=== PATIENT | female | born 1990 | race Hispanic/Latino ===

== ENCOUNTER 2020-11-09 15:12 | Emergency (ER) | payer SELFPAY ==
--- OUTSIDE RECORDS SUMMARY | 2020-11-09 15:14 | XMS REPORT | Continuity of Care Document ---
:1990 Author Organization [facility] t Address [address] [place] [address] Care Team Providers Name Role Phone Singer BANUELOS Attending Clinician Doctor Unassigned, Name Attending Clinician Unavailable Khalida TREVIÑO Attending Clinician Problems This patient has no known problems. Allergies, Adverse Reactions, Alerts This patient has no known allergies or adverse reactions. Medications This patient has no known medications. Procedures This patient has no known procedures. Encounters Start End Encounter Admission Attending Care Care Encounter Source Date/Time Date/Time Type Type Clinicians Facility Department ID 2020-07-21 2020-07-21 TIM Humphrey [id number] 11:52:00 14:37:00 Davin Albarado [id number] [place] [id number] [place] [id number] 2020-07-21 2020-07-21 Orders Doctor LEDEZMA [id number] 00:00:00 00:00:00 Only Unassigned, DANIEL [id number] [place] [facility] [id number] [id number] 2019-05-11 2019-05-11 Telephone TIM Gaxiola [id number] 00:00:00 00:00:00 Kalina Albarado [id number] [place] [id number] [place] [id number] [address] 2019-04-23 2019-04-23 Orders Doctor BRISA [id number] 00:00:00 00:00:00 Only Unassigned, DANIEL [id number] [place] [facility] [id number] [id number] Results This patient has no known results.
--- NOTE | 2020-11-09 17:08 | RAD REPORT ---
EXAM DESCRIPTION: US - Transvaginal OB - 11/09/2020 4:51 pm CLINICAL HISTORY: Abd cramping, ;Vaginal bleeding COMPARISON: No comparisons FINDINGS: No IUP identified. The uterus measures 7.5 centimeters in long axis. The endometrial echo complex measures 4 millimeters. The right ovary is volume of 2.8 cc. The left ovary is volume of 3.4 cc. Both ovaries demonstrate vascular flow. Trace free fluid. IMPRESSION: No IUP identified, therefore cannot exclude early ectopic, failed first trimester pregna ncy, or early normal . Could consider short-term follow-up. Vascular flow is present in the ovaries bilaterally.
[2020-11-09 17:28] LABS: Urine Blood Trace-intact (Negative); Urine Glucose Negative (Negative); Urine Protein Negative (Negative); Urine pH 6.5 (5.0-7.0)
[2020-11-09] MEDS ORDERED: NA CHLORIDE 0.9% 1,000 ML ONE (18:38)
[2020-11-09 18:39] LABS: Absolute Lymphocytes (CBC) 1.5 K/uL (0.7-4.9); Basophils % 0.3 % (0-1.3); Hematocrit 42.3 % (36.0-45.0); Lymphocytes % 11.2 % (15.3-44.8); MPV 8.2 fL (7.6-11.3)
[2020-11-09 18:50] LABS: BUN Blood Urea Nitrogen 12 mg/dL (7-18); Bicarbonate 27 mmol/L (21-32); Glucose Level 79 mg/dL (74-106); HCG, Quantitative 631 mIU/mL (1-3); Potassium 3.3 mmol/L (3.5-5.1); Sodium Level 138 mmol/L (136-145)
[2020-11-09] MEDS ORDERED: POTASSIUM 25 MEQ EFFERV TAB ONE (20:06)
--- NOTE | 2020-11-11 16:50 | ER ---
Nurse's Notes [facility] Name: Italia Watts Age: 30 yrs Sex: Female : 1990 Arrival Date: 11/09/2020 Time: 15:13 Bed 26 Private MD: Diagnosis: Threatened Presentation: 11/09 15:18 Chief complaint: Patient states: "I'm . I don't know how far along, but I ss started spotting last night and now I'm cramping.". Coronavirus screen: Client denies travel out of the [place] in the last 14 days. Ebola Screen: Patient denies exposure to infectious person. Patient denies travel to an Ebola-affected area in the 21 days before illness onset. Initial Sepsis Screen: Does the patient meet any 2 criteria? No. Patient's initial sepsis screen is negative. Does the patient have a suspected source of infection? No. Patient's initial sepsis screen is negative. Risk Assessment: Do you want to hurt yourself or someone else? Patient reports no desire to harm self or others. Onset of symptoms was November 08, 2020. 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 - Social history:: Smoking status: Patient denies any tobacco usage or history of. Screenin:14 Abuse screen: Denies threats or abuse. Denies injuries from another. Nutritional zb screening: No deficits noted. Tuberculosis screening: No symptoms or risk factors identified. Fall Risk None identified. Assessment: 18:13 General: Appears uncomfortable, Behavior is calm, cooperative, appropriate for age. zb Pain: Complains of pain in left lower quadrant and right lower quadrant Quality of pain is described as crampy. Neuro: Level of Consciousness is awake, alert, obeys commands, Oriented to person, place, time, situation. Cardiovascular: Patient's skin is warm and dry. Respiratory: Airway is patent Respiratory effort is even, unlabored, Respiratory pattern is regular, symmetrical. GI: Abdomen is flat, round. : Urine is clear. : Reports discharge, bloody, spotting x1 day. Derm: Skin is intact, is healthy with good turgor. Musculoskeletal: Range of motion: intact in all extremities. 19:30 Obstetrical Assessment: General assessment: awake and alert. zb 19:36 Reassessment: Patient appears in no apparent distress at this time. Patient and/or zb family updated on plan of care and expected duration. Pain level reassessed. Patient is alert, oriented x 3, equal unlabored respirations, skin warm/dry/pink. Vital Signs: 15:18 BP 150 / 99; Pulse 80; Resp 15; Temp 97.8(TE); Pulse Ox 98% on R/A; Height 5 ft. 2 in. ss (157.48 cm); Pain 6/10; 18:15 BP 123 / 106; Pulse 97; Resp 16; Pulse Ox 100% on R/A; zb Vitals: 20:24 Heart Tones n/a at this time. ECP notified no doppler. . zb ED Course: 15:13 Patient arrived in ED. am2 15:19 Triage completed. ss 15:19 Arm band placed on right wrist. ss 15:37 Fabiola Medina FNP-C is PHCP. kb 15:37 Karen Frederick MD is Attending Physician. kb 16:31 Fabiola Medina FNP-C is PHCP. kb 16:31 Karen Frederick MD is Attending Physician. kb 16:51 US Transvaginal Ob In Process Unspecified. EDMS 17:30 Michele Mccabe PA is PHCP. kb 17:58 Kristi Tan RN is Primary Nurse. zb 18:14 Patient has correct armband on for positive identification. Pulse ox on. NIBP on. Door zb closed. Noise minimized. 18:14 Inserted saline lock: 20 gauge in right antecubital area, using aseptic technique. zb Blood collected. 20:00 No provider procedures requiring assistance completed. IV discontinued, intact, zb bleeding controlled, No redness/swelling at site. Pressure dressing applied. 20:00 No provider procedures requiring assistance completed. zb 20:00 No provider procedures requiring assistance completed. zb Administered Medications: 18:20 Drug: NS 0.9% 1000 ml Route: IV; Rate: 1000 ml; Site: right antecubital; zb 19:36 Follow up: Response: No adverse reaction; IV Status: Completed infusion; IV Intake: zb 1000ml 19:57 Drug: Potassium Effervescent Tablet 50 mEq Route: PO; zb 20:00 Follow up: Response: Medication administered at discharge. zb Point of Care Testing: Urine : 18:15 hCG Reading: Positive; Control Reading: Positive; zb Intake: 19:36 IV: 1000ml; Total: 1000ml. zb Outcome: 19:18 Discharge ordered by . cp 20:00 Discharged to home ambulatory, with family. zb 20:00 Condition: stable 20:00 Discharge instructions given to patient, Instructed on discharge instructions, follow up and referral plans. Demonstrated understanding of instructions, follow-up care. 20:04 Patient left the ED. zb Signatures: Dispatcher [employer] EDGA Fabiola Medina, KALLIE-C PATIENT RELATIONS LIAISON-Yolanda Coburn RN RN ss Michele Mccabe, PA PA Kenzie Leyva Zipporah, RN RN zb Corrections: (The following items were deleted from the chart) 15:20 15:19 PSHx: Colectomy; ss
--- NOTE | 2020-11-11 16:50 | EDPHYS ---
Physician Documentation [facility] Name: Italia Watts Age: 30 yrs Sex: Female : 1990 Arrival Date: 11/09/2020 Time: 15:13 Bed 26 Private MD: ED Physician Karen Frederick HPI: 11/09 17:23 This 30 yrs old Female presents to ER via Ambulatory with complaints of kb Vaginal Bleeding, + Preg <12wks, Abdominal Cramping. 17:23 The patient presents to the emergency department with abdominal pain, of the right kb lower quadrant and left lower quadrant, that started today, described as crampy, vaginal bleeding, described as spotting. course: care: none. Previous pregnancies: in previous pregnancies patient has had . Associated signs and symptoms: Pertinent positives: abdominal pain, vaginal bleeding, Pertinent negatives: chest pain, diarrhea, dysuria, fever, frequency, nausea, ruptured membranes, seizure, shortness of breath, vaginal discharge, vomiting. The patient has not experienced similar symptoms in the past. The patient has not recently seen a physician. Patient reports she is . Reports spotting yesterday and lower abdominal cramping today. Spotting has resolved today. 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 - Social history:: Smoking status: Patient denies any tobacco usage or history of. ROS: 17:22 Constitutional: Negative for fever, chills, and weight loss. kb 17:22 Abdomen/GI: Positive for abdominal cramps, Negative for abdominal pain, nausea, vomiting, and diarrhea. 17:22 : Positive for vaginal bleeding. 17:22 All other systems are negative. Exam: 17:22 Constitutional: This is a well developed, well nourished patient who is awake, alert, kb and in no acute distress. Head/Face: Normocephalic, atraumatic. ENT: Moist Mucous membranes Respiratory: Respirations even and unlabored. No increased work of breathing, no retractions or nasal flaring. Abdomen/GI: Soft, non-tender. No distention Skin: Warm, dry with normal turgor. Normal color. MS/ Extremity: Pulses equal, no cyanosis. Neurovascular intact. Full, normal range of motion. Neuro: Awake and alert, GCS 15, oriented to person, place, time, and situation. Moves all extremities. Normal gait. Psych: Awake, alert, with orientation to person, place and time. Behavior, mood, and affect are within normal limits. Vital Signs: 15:18 BP 150 / 99; Pulse 80; Resp 15; Temp 97.8(TE); Pulse Ox 98% on R/A; Height 5 ft. 2 in. ss (157.48 cm); Pain 6/10; 18:15 BP 123 / 106; Pulse 97; Resp 16; Pulse Ox 100% on R/A; zb MDM: 16:32 Patient medically screened. kb 17:22 Data reviewed: vital signs, nurses notes. Data interpreted: Pulse oximetry: on room air kb is 98 %. Interpretation: normal. 17:29 Transition of care: After a detail discussion of the patient's case, care is kb transferred to Michele JARRETT. 19:15 Counseling: I had a detailed discussion with the patient and/or guardian regarding: the cp historical points, exam findings, and any diagnostic results supporting the discharge/admit diagnosis, lab results, radiology results, the need for outpatient follow up, an OB/Gyne specialist. 19:15 ED course: VSS. Discussed results of labs and US that returned negative for IUP. Will cp discharge to home for continued monitoring. Patient instructed to f/u with OB and recheck beta-hcg in 48 hours, repeat US 1 week. Patient given strict return precautions if worsening pain, vaginal bleeding. 11/09 15:37 Order name: Abo/rh Typing 11/09 15:37 Order name: Basic Metabolic Panel; Complete Time: 19:09 kb 11/09 19:09 Interpretation: Normal except: K 3.3. cp 11/09 15:37 Order name: CBC with Diff; Complete Time: 19:09 11/09 19:09 Interpretation: Normal except: WBC 13.40; KEMI% 85.1; LYM% 11.2; MN% 3.1; NEUT A 11.4. cp 11/09 15:37 Order name: Quantitative Hcg; Complete Time: 19:09 kb 11/09 19:09 Interpretation: Abnormal: HCGQ 631. cp 11/09 15:38 Order name: ABO/RH typing; Complete Time: 19:09 EDMS 11/09 17:28 Order name: Urine Dipstick-Ancillary; Complete Time: 17:29 EDMS 11/09 19:11 Interpretation: Normal except: UKET 2+; UBLD Trace-intact. cp 11/09 15:37 Order name: IV Saline Lock; Complete Time: 18:04 kb 11/09 15:37 Order name: Labs collected and sent; Complete Time: 18:04 kb 11/09 15:37 Order name: NPO; Complete Time: 18:04 kb 11/09 15:37 Order name: Urine Dipstick-Ancillary (obtain specimen); Complete Time: 18:04 kb 11/09 15:37 Order name: US Transvaginal Ob; Complete Time: 17:10 kb 11/09 17:32 Order name: Urine --Ancillary (enter results); Complete Time: 19:09 eb 11/09 15:37 Order name: Urine Test (obtain specimen); Complete Time: 18:04 kb Administered Medications: 18:20 Drug: NS 0.9% 1000 ml Route: IV; Rate: 1000 ml; Site: right antecubital; zb 19:36 Follow up: Response: No adverse reaction; IV Status: Completed infusion; IV Intake: zb 1000ml 19:57 Drug: Potassium Effervescent Tablet 50 mEq Route: PO; zb 20:00 Follow up: Response: Medication administered at discharge. zb Point of Care Testing: Urine : 18:15 hCG Reading: Positive; Control Reading: Positive; zb Disposition Summary: 11/09/20 19:18 Discharge Ordered Location: Home cp Problem: new cp Symptoms: have improved cp Condition: Stable cp Diagnosis - Threatened cp Followup: cp - With: Private Physician - When: 48 Hours - Reason: Repeat Beta-HCG (48 Hours) Discharge Instructions: - Discharge Summary Sheet cp - Abdominal Pain During cp - Threatened Miscarriage cp - Vaginal Bleeding During , First Trimester cp - Activity Restriction During cp Forms: - Medication Reconciliation Form cp - Thank You Letter cp - Antibiotic Education cp - Prescription Opioid Use cp - Work release form zb Signatures: Dispatcher [employer] Fabiola Peraza, BILLIE ARREGUIN-Yolanda Coburn RN RN ss Michele Mccabe PA PA cp Brown, Zipporah, RN RN zb Corrections: (The following items were deleted from the chart) 15:20 15:19 PSHx: Colectomy; [facility]
[2020-11-11 22:53] VITALS: TEMP 97.8
[2020-11-11 22:55] VITALS: BP 123/106; O2SAT 100
== END 2020-11-09 20:04 | disposition home or self-care (01) ==
LOC: ER 15:12
DX: O20.0 Threatened abortion (principal)
CPT/HCPCS: 36415; 76817; 80048; 81003; 81025; 84702; 85025; 86900; 86901; 96360; 99284; J7030

== ENCOUNTER 2020-11-11 09:51 | Emergency (ER) | payer SELFPAY ==
--- OUTSIDE RECORDS SUMMARY | 2020-11-11 09:53 | XMS REPORT | Continuity of Care Document ---
:1990 Author Organization [facility] t Address [address] [place] [address] Care Team Providers Name Role Phone Doctor Unassigned, Name Attending Clinician Unavailable Singer BANUELOS Attending Clinician Khalida TREVIÑO Attending Clinician Problems This patient has no known problems. Allergies, Adverse Reactions, Alerts This patient has no known allergies or adverse reactions. Medications This patient has no known medications. Procedures This patient has no known procedures. Encounters Start End Encounter Admission Attending Care Care Encounter Source Date/Time Date/Time Type Type Clinicians Facility Department ID 2020-11-11 2020-11-11 Orders Doctor BRISA [id number] 00:00:00 00:00:00 Only UnassDANIEL [place] [id number] [place] [facility] [id number] [id number] 2020-07-21 2020-07-21 Emergency TIM Mccall [id number] 11:52:00 14:37:00 Davin Albarado [id number] [place] [id number] [place] [id number] 2020-07-21 2020-07-21 Orders Doctor BRISA [id number] 00:00:00 00:00:00 Only Unassigned, DANI[id number] [facility] [id number] [id number] 2019-05-11 2019-05-11 Telephone [facility] [id number] 00:00:00 00:00:00 Kalinaprakash Albarado [id number] [place] [id number] [facility] [id number] [address] 2019-04-23 2019-04-23 Orders Doctor LEDEZMA [id number] 00:00:00 00:00:00 Only UnassignedDANIEL [id number] [facility] [id number] [id number] Results This patient has no known results.
--- NOTE | 2020-11-11 18:04 | ER ---
Nurse's Notes [facility] Name: Italia Watts Age: 30 yrs Sex: Female : 1990 Arrival Date: 11/11/2020 Time: 09:53 Bed 12 Private MD: Diagnosis: Threatened Presentation: 11/11 10:18 Chief complaint: Patient states: HCG level recheck. Coronavirus screen: Client denies ss travel out of the [place] in the last 14 days. Ebola Screen: Patient denies exposure to infectious person. Patient denies travel to an Ebola-affected area in the 21 days before illness onset. Initial Sepsis Screen: Does the patient meet any 2 criteria? No. Patient's initial sepsis screen is negative. Does the patient have a suspected source of infection? No. Patient's initial sepsis screen is negative. Risk Assessment: Do you want to hurt yourself or someone else? Patient reports no desire to harm self or others. Onset of symptoms is unknown. 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 - Social history:: Smoking status: Patient denies any tobacco usage or history of. - Family history:: not pertinent. - Hospitalizations: : No recent hospitalization is reported. Screenin:33 Abuse screen: Denies threats or abuse. Denies injuries from another. Nutritional ss screening: No deficits noted. Tuberculosis screening: Never had TB. Fall Risk None identified. Assessment: 10:33 General: Appears in no apparent distress. comfortable, Behavior is calm, cooperative. ss Pain: Denies pain. Neuro: Level of Consciousness is awake, alert, obeys commands, Oriented to person, place, time, situation. Cardiovascular: Capillary refill < 3 seconds is sluggish in bilateral fingers. Respiratory: Airway is patent Respiratory effort is even, unlabored, Respiratory pattern is regular, symmetrical. GI: Patient currently denies abdominal pain, bloody stool, diarrhea, nausea, vomiting. EENT: Oral mucosa is moist. Derm: Skin is intact, is healthy with good turgor, Skin is dry, Skin is pink, warm \T\ dry. normal. Musculoskeletal: Circulation, motion, and sensation intact. Range of motion: intact in all extremities, Swelling absent. 12:02 Reassessment: Patient appears in no apparent distress at this time. Patient and/or ss family updated on plan of care and expected duration. Pain level reassessed. Patient is alert, oriented x 3, equal unlabored respirations, skin warm/dry/pink. HCG back at this time. Awaiting disposition. Vital Signs: 10:18 BP 122 / 88; Pulse 89; Resp 16; Temp 97.2(TE); Pulse Ox 100% on R/A; Pain 0/10; ss ED Course: 09:53 Patient arrived in ED. mr 10:18 Triage completed. ss 10:18 Arm band placed on right wrist. ss 10:25 Scottie Walker MD is Attending Physician. rn 10:33 Yolanda Tai RN is Primary Nurse. ss 10:33 Patient has correct armband on for positive identification. Bed in low position. Call ss light in reach. 12:02 No provider procedures requiring assistance completed. Patient did not have IV access ss during this emergency room visit. Administered Medications: No medications were administered Outcome: 12:03 Discharge ordered by . rn 12:26 Discharged to home ambulatory. ss 12:26 Condition: good 12:26 Discharge instructions given to patient, Instructed on discharge instructions, follow up and referral plans. Demonstrated understanding of instructions, follow-up care. 12:26 Patient left the ED. ss Signatures: Cr, Fernanda mr Scottie Walker MD MD rn Smirch, Shelby, RN RN
--- NOTE | 2020-11-11 18:04 | EDPHYS ---
Physician Documentation [facility] Name: Italia Watts Age: 30 yrs Sex: Female : 1990 Arrival Date: 11/11/2020 Time: 09:53 Bed 12 Private MD: ED Physician Scottie Walker HPI: 11/11 10:49 This 30 yrs old Female presents to ER via Ambulatory with complaints of Check rn HCG Level. 10:49 The patient presents to the emergency department with Repeat hCG level. The estimated rn gestational age is 5 weeks. Associated signs and symptoms: Pertinent negatives: abdominal pain, vaginal bleeding, vaginal discharge. The patient has not experienced similar symptoms in the past. The patient has been recently seen by a physician: The patient has been recently seen at the [facility] Emergency Department. Patient reports seen here in ER 2 days ago, told indeterminant ultrasound, returns for repeat hCG level since unable to get in with OB in timely fashion. States abdominal pain went away as well as vaginal bleeding no longer present. Denies urinary symptoms. 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 - Social history:: Smoking status: Patient denies any tobacco usage or history of. - Family history:: not pertinent. - Hospitalizations: : No recent hospitalization is reported. ROS: 10:49 Constitutional: Negative for fever, chills, and weight loss, Eyes: Negative for injury, rn pain, redness, and discharge, Neck: Negative for injury, pain, and swelling, Cardiovascular: Negative for chest pain, palpitations, and edema, Respiratory: Negative for shortness of breath, cough, wheezing, and pleuritic chest pain, Abdomen/GI: Negative for abdominal pain, nausea, vomiting, diarrhea, and constipation, Back: Negative for injury and pain, : Negative for injury, bleeding, discharge, and swelling, MS/Extremity: Negative for injury and deformity, Skin: Negative for injury, rash, and discoloration, Neuro: Negative for headache, weakness, numbness, tingling, and seizure. Exam: 10:49 Constitutional: This is a well developed, well nourished patient who is awake, alert, rn and in no acute distress. Head/Face: Normocephalic, atraumatic. Cardiovascular: Regular rate and rhythm. No pulse deficits. Respiratory: No increased work of breathing, no retractions or nasal flaring. Abdomen/GI: Soft, nontender, no peritoneal signs Skin: Warm, dry MS/ Extremity: Pulses equal, no cyanosis. Vital Signs: 10:18 BP 122 / 88; Pulse 89; Resp 16; Temp 97.2(TE); Pulse Ox 100% on R/A; Pain 0/10; ss MDM: 10:25 Patient medically screened. rn 12:02 Differential diagnosis: ectopic , Threatened miscarriage. Data reviewed: vital rn signs, nurses notes, old medical records, lab test result(s), and as a result, I will discharge patient. Counseling: I had a detailed discussion with the patient and/or guardian regarding: the historical points, exam findings, and any diagnostic results supporting the discharge/admit diagnosis, lab results, the need for outpatient follow up, to return to the emergency department if symptoms worsen or persist or if there are any questions or concerns that arise at home. Response to treatment: the patient's symptoms have markedly improved after treatment, and as a result, I will discharge patient. Special discussion: I discussed with the patient/guardian in detail that at this point there is no indication for admission to the hospital. It is understood, however, that if the symptoms persist or worsen the patient needs to return immediately for re-evaluation. ED course: Beta-hCG approximately double what it was 48 hours ago, patient asymptomatic without abdominal pain, will DC home with OB follow-up as threatened .. 11/11 10:20 Order name: HCG-Quantitative; Complete Time: 12:01 ss Administered Medications: No medications were administered Disposition Summary: 11/11/20 12:03 Discharge Ordered Location: Home rn Problem: new rn Symptoms: have improved rn Condition: Stable rn Diagnosis - Threatened rn Followup: rn - With: Private Physician - When: As needed - Reason: Recheck today's complaints, Re-evaluation by your physician Discharge Instructions: - Discharge Summary Sheet rn - Threatened Miscarriage rn - Vaginal Bleeding During , First Trimester rn Forms: - Medication Reconciliation Form rn - Thank You Letter rn - Antibiotic radio journalist - Prescription Opioid Use rn Signatures: Dispatcher [employer] Scottie Sanchez MD MD rn Smirch, Shelby, RN RN ss
[2020-11-12 21:13] VITALS: BP 122/88; TEMP 97.2; O2SAT 100
== END 2020-11-11 12:26 | disposition home or self-care (01) ==
LOC: ER 09:51
DX: O20.0 Threatened abortion (principal); Z3A.01 Less than 8 weeks gestation of pregnancy
CPT/HCPCS: 36415; 84702

== ENCOUNTER 2022-11-16 16:37 | Emergency (ER) | payer OTHER ==
--- OUTSIDE RECORDS SUMMARY | 2022-11-16 16:47 | XMS REPORT | Continuity of Care Document ---
:1990 [facility] Organization [facility] t Address [address] [facility] [address] [place] [address] Care Team Providers Name Role Phone COLE BALBUENA Primary Care Physician Unavailable TEJAS LOPEZ Attending Clinician Unavailable ISREAL MEZA Attending Clinician Unavailable CHRISTIANE TREADWELL Attending Clinician Unavailable CHRISTIANE TREADWELL Attending Clinician Unavailable Tejas Lopez MD Attending Clinician Gris Rosas RN Attending Clinician Unavailable JASON KENDRICK Attending Clinician Unavailable JASON KENDRICK Attending Clinician Unavailable Doctor Unassigned, [place] Attending Clinician Unavailable Katherine Luna RN Attending Clinician Unavailable Sangeeta Lyon PA-C Attending Clinician Damon Rosario MD Attending Clinician SANGEETA LYON Attending Clinician Unavailable Malini Gonzalez MD Attending Clinician Lab, Ang - Db Attending Clinician Unavailable Humberto Alas Attending Clinician HUMBERTO JADE Attending Clinician Unavailable Leida WHITAKER, Rocio Attending Clinician Unavailable 2, Adc Lab Attending Clinician Unavailable Pob, Adc Lab Main Attending Clinician Unavailable Only, Adc Test Attending Clinician Unavailable Ultrasound, Adc Mfm Attending Clinician Unavailable Kayy Bustamante MD Attending Clinician KAYY BUSTAMANTE Attending Clinician Unavailable Davin Mccall DO Attending Clinician Kalina Gaxiola MD Attending Clinician TEJAS LOPEZ Admitting Clinician Unavailable Tejas Lopez MD Admitting Clinician Payers Payer Name Policy Type Policy Number Effective Date Expiration Date [facility] [id number] 2020 CHOICE MEDICAID 00:00:00 [facility] [id number] 2018 00:00:00 [facility] [id number] 2018 00:00:00 [place] [id number] 2020 00:00:00 Problems Condition Condition Condition Status Onset Resolution Last Treating Co mments Source Name Details Category Date Date Treatment Clinician Date Attention Attention Disease Active 2021-04 Uni vers deficit deficit 2-08 ity of disorder disorder 00:00: [place] (ADD) in (ADD) in 00 Medica l adult adult Branch Fatigue, Fatigue, Disease Active 2021-04 Unive rs unspecifie unspecifie 1-08 it y of d type d type 00:00: [place] [facility] Bruising Bruising Disease Active 2021-04 Unive rs tendency tendency 1-08 ity of 00:00: [place] [facility] Anxiety Anxiety Disease Active 2021-04 Univers and and 1-08 ity of depression [place] 00:[place]: [place] [facility] Family hx Family hx Disease Active 2021-04 Uni vers of colon of colon 1-08 ity of cancer cancer 00:00: [place] [facility] Other Other Disease Active 2020-04 Univers constipati constipati 0-07 it y of on on 00:00: [place] [address] Medical Branch Previous Previous Disease Active Unive rs 8-12 ity of section section 00:00: [address] Obesity Obesity Disease Active Univers (BMI (BMI 9-30 ity of 30-39.9) 30-39.9) 00:00: [address] Allergies, Adverse Reactions, Alerts Allergy Allergy Status Severity Reaction(s) Onset Inactive Treating Comm ents Source Name Type Date Date Clinician NO KNOWN Drug Active Univers ALLERGIE Class ity of S [facility] Social History Social Habit Start Date Stop Date Quantity Comments Source History of tobacco Passive smoker Un iversity of use [facility] Gender identity Universit y of [facility] Alcohol intake 2022-11-04 2022-11-04 Current drinker Unive rsity of 00:00:00 00:00:00 of alcohol [facility] [place] [facility] (finding) [place] Exposure to 2022-07-19 2022-07-29 Not sure [facility] SARS-CoV-2 (event) 00:00:00 10:04:00 [facility] Alcohol Comment 2022-02-25 2022-02-25 socially/ rarley Uni versity of 00:00:00 00:00:00 [facility] Tobacco use and 2022-02-25 2022-02-25 Smokeless Universit y of exposure 00:00:00 00:00:00 tobacco non-user [facility] History of Social 2022-02-23 2022-02-23 Univers ity of function 00:00:00 00:00:00 [facility] Sex [birth year] Universit y of 00:00:00 00:00:00 [facility] Smoking Status Start Date Stop Date Source Never smoked tobacco [facility] Medications Ordered Filled Start Stop Current Ordering Indication Dosage Frequency Signature Comments Components Source Medication Medication Date Date Medication? Clinician (SIG) Name Name lisdexamfet Yes [id number] 30mg Take 1 Univers amine 7-20 capsule by ity of (VYVANSE) 00:00: mouth [place] 30 mg 00 every Medical capsule morning. Branch lisdexamfet Yes [id number] 30mg Take 1 Univers amine 7-20 capsule by ity of (VYVANSE) 00:00: mouth [place] 30 mg 00 every Medical capsule morning. Branch lisdexamfet 0 Yes [id number] 30mg Take 1 Univers amine 6-30 capsule by ity of (VYVANSE) 00:00: mouth [place] 30 mg 00 every Medical capsule morning. Branch lisdexamfet 0 Yes [id number] 30mg Take 1 Univers amine 6-30 capsule by ity of (VYVANSE) 00:00: mouth [place] 30 mg 00 every Medical capsule morning. Branch lisdexamfet 0 2022- No [id number] 30mg Take 1 Univers amine 6-30 07-20 capsule by ity of (VYVANSE) 00:00: 00:00 mouth [place] 30 mg 00 :00 every Medical capsule morning. Branch lisdexamfet 2022- No [id number] 30mg Take 1 Univers amine 6-30 07-20 capsule by ity of (VYVANSE) 00:00: 00:00 mouth [place] 30 mg 00 :00 every Medical capsule morning. Branch ampicillin 2022- Yes [id number] 500mg Take 1 Univers 500 mg 6-07 06-18 capsule by ity of capsule 00:00: 04:59 mouth [place] 00 :00 every 6 Medical (six) Branch hours for 10 days. metroNIDAZO 2022- No [id number] 1{each} Insert 1 Univers LE 6-07 06-09 Each into ity of (NUVESSA) 00:00: 04:59 [place] 1.3 % (65 00 :00 the Medical mg/5 gram) morning Branch Gel for 1 day. lisdexamfet 2022-0 Yes [id number] 30mg Take 1 Univers amine 5-30 capsule by ity of (VYVANSE) 00:00: mouth [place] 30 mg 00 every Medical capsule morning. Branch lisdexamfet 2022-0 Yes [id number] 30mg Take 1 Univers amine 5-30 capsule by ity of (VYVANSE) 00:00: mouth [place] 30 mg 00 every Medical capsule morning. Branch lisdexamfet 2022-0 Yes [id number] 30mg Take 1 Univers amine 5-30 capsule by ity of (VYVANSE) 00:00: mouth [place] 30 mg 00 every Medical capsule morning. Branch lisdexamfet 2022-0 Yes [id number] 30mg Take 1 Univers amine 5-30 capsule by ity of (VYVANSE) 00:00: mouth [place] 30 mg 00 every Medical capsule morning. Branch lisdexamfet 2022-0 Yes [id number] 30mg Take 1 Univers amine 5-30 capsule by ity of (VYVANSE) 00:00: mouth [place] 30 mg 00 every Medical capsule morning. Branch lisdexamfet 2022-0 3- No [id number] 30mg Take 1 Univers amine 5-30 06-29 capsule by ity of (VYVANSE) 00:00: 00:00 mouth [place] 30 mg 00 :00 every Medical capsule morning. Branch lisdexamfet 2022-0 Yes [id number] 30mg Take 1 Univers amine 4-13 capsule by ity of (VYVANSE) 00:00: mouth [place] 30 mg 00 every Medical capsule morning. Branch SERTraline 2022-0 Yes [id number] 50mg Take 1 U nivers (ZOLOFT) 50 4-13 tablet by ity of mg tablet 00:00: [place] the [place] morning. Branch lisdexamfet 2022-0 Yes [id number] 30mg Take 1 Univers amine 4-13 capsule by ity of (VYVANSE) 00:00: mouth [place] 30 mg 00 every Medical capsule morning. Branch SERTraline 2022-0 Yes [id number] 50mg Take 1 U nivers (ZOLOFT) 50 4-13 tablet by ity of mg tablet 00:00: [place] the [place] morning. Branch lisdexamfet 2022-0 Yes [id number] 30mg Take 1 Univers amine 4-13 capsule by ity of (VYVANSE) 00:00: mouth [place] 30 mg 00 every Medical capsule morning. Branch SERTraline 2022-0 Yes [id number] 50mg Take 1 U nivers (ZOLOFT) 50 4-13 tablet by [place]y of mg tablet 00:00: [place] 00 the Medical morning. Branch lisdexamfet 2022-0 Yes [id number] 30mg Take 1 Univers amine 4-13 capsule by ity of (VYVANSE) 00:00: mouth [place] 30 mg 00 every Medical capsule morning. Branch SERTraline 2023-0 Yes [id number] 50mg Take 1 U nivers (ZOLOFT) 50 4-13 tablet by ity of mg tablet 00:00: [place] the [place] morning. Branch lisdexamfet 3-0 Yes [id number] 30mg Take 1 Univers amine 4-13 capsule by ity of (VYVANSE) 00:00: mouth [place] 30 mg 00 every Medical capsule morning. Branch SERTraline 3-0 Yes [id number] 50mg Take 1 U nivers (ZOLOFT) 50 4-13 tablet by ity of mg tablet 00:00: [place] the Medical morning. Branch lisdexamfet 3-0 Yes [id number] 30mg Take 1 Univers amine 4-13 capsule by ity of (VYVANSE) 00:00: mouth [place] 30 mg 00 every Medical capsule morning. Branch SERTraline 2022-0 Yes [id number] 50mg Take 1 U nivers (ZOLOFT) 50 4-13 tablet by [place]y of mg tablet 00:00: [place] the [place] Branch SERTraline 2022-0 Yes [id number] 50mg Take 1 U nivers (ZOLOFT) 50 4-13 tablet by ity of mg tablet 00:00: [place] the [place] morning. Branch SERTraline 3-0 Yes [id number] 50mg Take 1 U nivers (ZOLOFT) 50 4-13 tablet by ity of mg tablet 00:00: [place] the [place] morning. Branch SERTraline 3-0 Yes [id number] 50mg Take 1 U nivers (ZOLOFT) 50 4-13 tablet by ity of mg tablet 00:00: [place] 00 the Medical morning. Branch SERTraline 3-0 Yes [id number] 50mg Take 1 U nivers (ZOLOFT) 50 4-13 tablet by ity of mg tablet 00:00: [place] the [place] morning. Branch SERTraline 3-0 Yes [id number] 50mg Take 1 U nivers (ZOLOFT) 50 4-13 tablet by ity of mg tablet 00:00: [place] the Medical morning. Branch SERTraline 3-0 Yes [id number] 50mg Take 1 U nivers (ZOLOFT) 50 4-13 tablet by ity of mg tablet 00:00: [place] the Medical morning. Branch SERTraline 3-0 Yes [id number] 50mg Take 1 U nivers (ZOLOFT) 50 4-13 tablet by ity of mg tablet 00:00: [place] the Medical morning. Branch SERTraline 3-0 Yes [id number] 50mg Take 1 U nivers (ZOLOFT) 50 4-13 tablet by ity of mg tablet 00:00: [place] the Medical morning. Branch SERTraline 3-0 Yes [id number] 50mg Take 1 U nivers (ZOLOFT) 50 4-13 tablet by ity of mg tablet 00:00: [place] the Medical morning. Branch lisdexamfet 2022-0 2022- No [id number] 30mg Take 1 Univers amine 4-13 05-29 capsule by ity of (VYVANSE) 00:00: 00:00 mouth [place] 30 mg 00 :00 every Medical capsule morning. Branch amphetamine 2022-0 Yes [id number] 20mg Take 1 Univers -dextroamph 4-06 capsule by it y of etamine 00:00: mouth [place] (ADDERALL 00 every Medical XR) 20 mg morning. Branch 24 hr capsule amphetamine 2022-0 2022- No [id number] 20mg Take 1 Univers -dextroamph 4-06 04-13 capsule by i ty of etamine 00:00: 00:00 mouth [place] (ADDERALL 00 :00 every Medical XR) 20 mg morning. Branch 24 hr capsule amphetamine 2022-0 2022- No [id number] 20mg Take 1 Univers -dextroamph 4-06 04-13 capsule by i ty of etamine 00:00: 00:00 mouth [place] (ADDERALL 00 :00 every Medical XR) 20 mg morning. Branch 24 hr capsule amphetamine 3-0 Yes [id number] 20mg Take 1 Univers -dextroamph 3-07 capsule by it y of etamine 00:00: mouth [place] (ADDERALL 00 every Medical XR) 20 mg morning. Branch 24 hr capsule amphetamine 3-0 Yes [id number] 20mg Take 1 Univers -dextroamph 3-07 capsule by it y of etamine 00:00: mouth [place] (ADDERALL 00 every Medical XR) 20 mg morning. Branch 24 hr capsule amphetamine 2022-2022- No [id number] 20mg Take 1 Univers -dextroamph 3-07 04-04 capsule by i ty of etamine 00:00: 00:00 mouth [place] (ADDERALL 00 :00 every Medical XR) 20 mg morning. Branch 24 hr capsule amphetamine 2022-0 Yes [id number] 20mg Take 1 Univers -dextroamph 2-06 capsule by it y of etamine 00:00: mouth [place] (ADDERALL 00 every Medical XR) 20 mg morning. Branch 24 hr capsule amphetamine 2022-2022- No [id number] 20mg Take 1 Univers -dextroamph 2-06 03-07 capsule by i ty of etamine 00:00: 00:00 mouth [place] (ADDERALL 00 :00 every Medical XR) 20 mg morning. Branch 24 hr capsule clindamycin 2022- No [id number] 100mg Insert 1 Univers 100 mg 04-28 Suppositor ity of vaginal 00:00: 05:59 y into [place] suppository 00 :00 vagina at [facility] for 30 days. clindamycin 2022- No [id number] 100mg Insert 1 Univers 100 mg 04-28 Suppositor ity of vaginal 00:00: 05:59 y into [place] suppository 00 :00 vagina at [facility] for 30 days. amphetamine 2022-0 Yes [id number] 20mg Take 1 Univers -dextroamph 1-10 capsule by it y of etamine 00:00: mouth [place] (ADDERALL 00 every Medical XR) 20 mg morning. Branch 24 hr capsule amphetamine 2022-0 Yes [id number] 20mg Take 1 Univers -dextroamph 1-10 capsule by it y of etamine 00:00: mouth [place] (ADDERALL 00 every Medical XR) 20 mg morning. Branch 24 hr capsule amphetamine 2022-0 2022- No [id number] 20mg Take 1 Univers -dextroamph 1-10 02-06 capsule by i ty of etamine 00:00: 00:00 mouth [place] (ADDERALL 00 :00 every Medical XR) 20 mg morning. Branch 24 hr capsule fluconazole 2021-04- No [id number] 150mg Take 1 Univers 150 mg 2-29 12-30 tablet by ity of tablet 00:00: 05:59 [place] 00 :[place] now for 1 Medical dose. Branch fluconazole 2021-04- No [id number] 150mg Take 1 Univers 150 mg 2-29 12-30 tablet by ity of tablet 00:00: 05:59 [place] 00 :[place] now for 1 Medical dose. Branch amphetamine 2021-04 Yes [id number] 20mg Take 1 Univers -dextroamph 2-08 capsule by it y of etamine 00:00: mouth [place] (ADDERALL 00 every Medical XR) 20 mg morning. Branch 24 hr capsule amphetamine 2021-04 Yes [id number] 20mg Take 1 Univers -dextroamph 2-08 capsule by it y of etamine 00:00: mouth [place] (ADDERALL 00 every Medical XR) 20 mg morning. Branch 24 hr capsule amphetamine 2021-04 Yes [id number] 20mg Take 1 Univers -dextroamph 2-08 capsule by it y of etamine 00:00: mouth [place] (ADDERALL 00 every Medical XR) 20 mg morning. Branch 24 hr capsule amphetamine 2021-04 Yes [id number] 20mg Take 1 Univers -dextroamph 2-08 capsule by it y of etamine 00:00: mouth [place] (ADDERALL 00 every Medical XR) 20 mg morning. Branch 24 hr capsule amphetamine 2021-04 Yes [id number] 20mg Take 1 Univers -dextroamph 2-08 capsule by it y of etamine 00:00: mouth [place] (ADDERALL 00 every Medical XR) 20 mg morning. Branch 24 hr capsule amphetamine 2021-04 Yes [id number] 20mg Take 1 Univers -dextroamph 2-08 capsule by it y of etamine 00:00: mouth [place] (ADDERALL 00 every Medical XR) 20 mg morning. Branch 24 hr capsule amphetamine 2021-04 Yes [id number] 20mg Take 1 Univers -dextroamph 2-08 capsule by it y of etamine 00:00: mouth [place] (ADDERALL 00 every Medical XR) 20 mg morning. Branch 24 hr capsule amphetamine 2021-04 Yes [id number] 20mg Take 1 Univers -dextroamph 2-08 capsule by it y of etamine 00:00: mouth [place] (ADDERALL 00 every Medical XR) 20 mg morning. Branch 24 hr capsule amphetamine 2021-043- No [id number] 20mg Take 1 Univers -dextroamph 2-08 04-26 capsule by i ty of etamine 00:00: 00:00 mouth [place] (ADDERALL 00 :00 every Medical XR) 20 mg morning. Branch 24 hr capsule FLUCONAZOLE 2021-04 Yes [id number] TAKE 1 Univers 150 mg 2-05 TABLET BY ity of tablet 00:00: MOUTH TIME NOW Medical FOR 1 DOSE Branch FLUCONAZOLE 2021-04 Yes [id number] TAKE 1 Univers 150 mg 2-05 TABLET BY ity of tablet 00:00: MOUTH TIME NOW Medical FOR 1 DOSE Branch FLUCONAZOLE 2021-04 Yes [id number] TAKE 1 Univers 150 mg 2-05 TABLET BY ity of tablet 00:00: MOUTH TIME NOW Medical FOR 1 DOSE Branch FLUCONAZOLE 2021-04 Yes [id number] TAKE 1 Univers 150 mg 2-05 TABLET BY ity of tablet 00:00: MOUTH TIME NOW Medical FOR 1 DOSE Branch FLUCONAZOLE 2021-04 Yes [id number] TAKE 1 Univers 150 mg 2-05 TABLET BY ity of tablet 00:00: MOUTH TIME NOW Medical FOR 1 DOSE Branch FLUCONAZOLE 2021-04 Yes [id number] TAKE 1 Univers 150 mg 2-05 TABLET BY ity of tablet 00:00: MOUTH TIME NOW Medical FOR 1 DOSE Branch FLUCONAZOLE 2021-04 Yes [id number] TAKE 1 Univers 150 mg 2-05 TABLET BY ity of tablet 00:00: MOUTH TIME NOW Medical FOR 1 DOSE Branch FLUCONAZOLE 2021-04 Yes [id number] TAKE 1 Univers 150 mg 2-05 TABLET BY ity of tablet 00:00: MOUTH TIME NOW Medical FOR 1 DOSE Branch FLUCONAZOLE 2021-04 Yes [id number] TAKE 1 Univers 150 mg 2-05 TABLET BY ity of tablet 00:00: MOUTH TIME NOW Medical FOR 1 DOSE Branch FLUCONAZOLE 2021-04 Yes [id number] TAKE 1 Univers 150 mg 2-05 TABLET BY ity of tablet 00:00: MOUTH TIME NOW Medical FOR 1 DOSE Branch FLUCONAZOLE 2021-04 Yes [id number] TAKE 1 Univers 150 mg 2-05 TABLET BY ity of tablet 00:00: MOUTH TIME NOW Medical FOR 1 DOSE Branch FLUCONAZOLE 2021-04- No [id number] TAKE 1 Univers 150 mg 2-04-15 TABLET BY ity of tablet 00:00: 00:00 MOUTH 1 [place] 00 :00 TIME NOW Medical FOR 1 DOSE Branch FLUCONAZOLE 2021-04- No [id number] TAKE 1 Univers 150 mg 2-05 - TABLET BY ity of tablet 00:00: 00:00 MOUTH 1 [place] 00 :00 TIME NOW Medical FOR 1 DOSE Branch amphetamine 2021-04 Yes [id number] 20mg Take 1 Univers -dextroamph 2-01 capsule by it y of etamine 00:00: mouth [place] (ADDERALL 00 every Medical XR) 20 mg morning. Branch 24 hr capsule amphetamine 2021-04 Yes [id number] 20mg Take 1 Univers -dextroamph 2-01 capsule by it y of etamine 00:00: mouth [place] (ADDERALL 00 every Medical XR) 20 mg morning. Branch 24 hr capsule amphetamine 2021-04 Yes [id number] 20mg Take 1 Univers -dextroamph 2-01 capsule by it y of etamine 00:00: mouth [place] (ADDERALL 00 every Medical XR) 20 mg morning. Branch 24 hr capsule amphetamine 2021-04 Yes [id number] 20mg Take 1 Univers -dextroamph 2-01 capsule by it y of etamine 00:00: mouth [place] (ADDERALL 00 every Medical XR) 20 mg morning. Branch 24 hr capsule amphetamine 2021-04 Yes [id number] 20mg Take 1 Univers -dextroamph 2-01 capsule by it y of etamine 00:00: mouth [place] (ADDERALL 00 every Medical XR) 20 mg morning. Branch 24 hr capsule amphetamine 2021-04 Yes [id number] 20mg Take 1 Univers -dextroamph 2-01 capsule by it y of etamine 00:00: mouth [place] (ADDERALL 00 every Medical XR) 20 mg morning. Branch 24 hr capsule amphetamine 2021-04 Yes [id number] 20mg Take 1 Univers -dextroamph 2-01 capsule by it y of etamine 00:00: mouth [place] (ADDERALL 00 every Medical XR) 20 mg morning. Branch 24 hr capsule amphetamine 2021-04 Yes [id number] 20mg Take 1 Univers -dextroamph 2-01 capsule by it y of etamine 00:00: mouth [place] (ADDERALL 00 every Medical XR) 20 mg morning. Branch 24 hr capsule amphetamine 2021-04- No [id number] 20mg Take 1 Univers -dextroamph 2-04 29- capsule by i ty of etamine 00:00: 00:00 mouth [place] (ADDERALL 00 :00 every Medical XR) 20 mg morning. Branch 24 hr capsule amphetamine 2021-04- No [id number] 20mg Take 1 Univers -dextroamph 2-04 29- capsule by i ty of etamine 00:00: 00:00 mouth [place] (ADDERALL 00 :00 every Medical XR) 20 mg morning. Branch 24 hr capsule amphetamine 2021-04- No [id number] 20mg Take 1 Univers -dextroamph 2-04 29- capsule by i ty of etamine 00:00: 00:00 mouth [place] (ADDERALL 00 :00 every Medical XR) 20 mg morning. Branch 24 hr capsule amphetamine 2021-04- No [id number] 20mg Take 1 Univers -dextroamph 2-03-25 capsule by i ty of etamine 00:00: 00:00 mouth [place] (ADDERALL 00 :00 every Medical XR) 20 mg morning. Branch 24 hr capsule amphetamine 2021-04 Yes [id number] 20mg Take 1 Univers -dextroamph 1-28 capsule by it y of etamine 00:00: mouth [place] (ADDERALL 00 every Medical XR) 20 mg morning. Branch 24 hr capsule amphetamine 2021-04 Yes [id number] 20mg Take 1 Univers -dextroamph 1-28 capsule by it y of etamine 00:00: mouth [place] (ADDERALL 00 every Medical XR) 20 mg morning. Branch 24 hr capsule amphetamine 2021-04- No [id number] 20mg Take 1 Univers -dextroamph 1-28 12- capsule by i ty of etamine 00:00: 00:00 mouth [place] (ADDERALL 00 :00 every Medical XR) 20 mg morning. Branch 24 hr capsule amphetamine 2021-04 Yes [id number] 10mg Take 1 Univers -dextroamph 1-15 capsule by it y of etamine 00:00: mouth [place] (ADDERALL 00 every Medical XR) 10 mg morning. Branch 24 hr Day 2 may capsule take two caps if symptoms are not improving Day 3 may take 3 caps if symptoms are not improving amphetamine 2021-04 Yes [id number] 10mg Take 1 Univers -dextroamph 1-15 capsule by it y of etamine 00:00: mouth [place] (ADDERALL 00 every Medical XR) 10 mg morning. Branch 24 hr Day 2 may capsule take two caps if symptoms are not improving Day 3 may take 3 caps if symptoms are not improving amphetamine 2021-04- No [id number] 10mg Take 1 Univers -dextroamph 1-15 11-28 capsule by i ty of etamine 00:00: 00:00 mouth [place] (ADDERALL 00 :00 every Medical XR) 10 mg morning. Branch 24 hr Day 2 may capsule take two caps if symptoms are not improving Day 3 may take 3 caps if symptoms are not improving amphetamine 2021-04- No [id number] 10mg Take 1 Univers -dextroamph 1-15 11-28 capsule by i ty of etamine 00:00: 00:00 mouth [place] (ADDERALL 00 :00 every Medical XR) 10 mg morning. Branch 24 hr Day 2 may capsule take two caps if symptoms are not improving Day 3 may take 3 caps if symptoms are not improving SERTraline 2021-04 Yes [id number] 50mg Take 1 U nivers (ZOLOFT) 50 1-10 tablet by ity of mg tablet 00:00: [place] 00 the Medical morning. Branch fluconazole 2021-04 Yes [id number] 200mg Take 1 Univers (DIFLUCAN) 1-10 tablet by ity of 200 mg 00:00: mouth in [place] tablet 00 the Medical morning. Branch SERTraline 2021-04 Yes [id number] 50mg Take 1 U nivers (ZOLOFT) 50 1-10 tablet by ity of mg tablet 00:00: mouth [place] 00 the Medical morning. Branch fluconazole 2021-04 Yes [id number] 200mg Take 1 Univers (DIFLUCAN) 1-10 tablet by ity of 200 mg 00:00: mouth in [place] tablet 00 the Medical morning. Branch SERTraline 2021-04 Yes [id number] 50mg Take 1 U nivers (ZOLOFT) 50 1-10 tablet by ity of mg tablet 00:00: mouth [place] 00 the Medical morning. Branch fluconazole 2021-04 Yes [id number] 200mg Take 1 Univers (DIFLUCAN) 1-10 tablet by ity of 200 mg 00:00: mouth in [place] tablet 00 the Medical morning. Branch SERTraline 2021-04 Yes [id number] 50mg Take 1 U nivers (ZOLOFT) 50 1-10 tablet by ity of mg tablet 00:00: mouth [place] 00 the Medical morning. Branch fluconazole 2021-04 Yes [id number] 200mg Take 1 Univers (DIFLUCAN) 1-10 tablet by ity of 200 mg 00:00: mouth in [place] tablet 00 the Medical morning. Branch SERTraline 2021-04 Yes [id number] 50mg Take 1 U nivers (ZOLOFT) 50 1-10 tablet by ity of mg tablet 00:00: mouth [place] 00 the Medical morning. Branch fluconazole 2021-04 Yes [id number] 200mg Take 1 Univers (DIFLUCAN) 1-10 tablet by ity of 200 mg 00:00: mouth in [place] tablet 00 the Medical morning. Branch SERTraline 2021-04 Yes [id number] 50mg Take 1 U nivers (ZOLOFT) 50 1-10 tablet by ity of mg tablet 00:00: mouth [place] 00 the Medical morning. Branch fluconazole 2021-04 Yes [id number] 200mg Take 1 Univers (DIFLUCAN) 1-10 tablet by ity of 200 mg 00:00: mouth in [place] tablet 00 the Medical morning. Branch SERTraline 2021-04 Yes [id number] 50mg Take 1 U nivers (ZOLOFT) 50 1-10 tablet by ity of mg tablet 00:00: mouth [place] 00 the Medical morning. Branch fluconazole 2021-04 Yes [id number] 200mg Take 1 Univers (DIFLUCAN) 1-10 tablet by ity of 200 mg 00:00: mouth in [place] tablet 00 the Medical morning. Branch SERTraline 2021-04 Yes [id number] 50mg Take 1 U nivers (ZOLOFT) 50 1-10 tablet by ity of mg tablet 00:00: mouth [place] 00 the Medical morning. Branch SERTraline 2021-04 Yes [id number] 50mg Take 1 U nivers (ZOLOFT) 50 1-10 tablet by ity of mg tablet 00:00: [place] 00 the Medical morning. Branch SERTraline 2021-04 Yes [id number] 50mg Take 1 U nivers (ZOLOFT) 50 1-10 tablet by ity of mg tablet 00:00: [place] 00 the Medical morning. Branch SERTraline 2021-04 Yes [id number] 50mg Take 1 U nivers (ZOLOFT) 50 1-10 tablet by ity of mg tablet 00:00: [place] 00 the Medical morning. Branch SERTraline 2021-04 Yes [id number] 50mg Take 1 U nivers (ZOLOFT) 50 1-10 tablet by ity of mg tablet 00:00: mouth [place] 00 the Medical morning. Branch SERTraline 2021-04 Yes [id number] 50mg Take 1 U nivers (ZOLOFT) 50 1-10 tablet by ity of mg tablet 00:00: mouth [place] 00 the Medical morning. Branch SERTraline 2021-04 Yes [id number] 50mg Take 1 U nivers (ZOLOFT) 50 1-10 tablet by ity of mg tablet 00:00: mouth [place] 00 the Medical morning. Branch SERTraline 2021-04 Yes [id number] 50mg Take 1 U nivers (ZOLOFT) 50 1-10 tablet by ity of mg tablet 00:00: [place] 00 the Medical morning. Branch SERTraline 2021-04 Yes [id number] 50mg Take 1 U nivers (ZOLOFT) 50 1-10 tablet by ity of mg tablet 00:00: [place] 00 the Medical morning. Branch SERTraline 2021-04 Yes [id number] 50mg Take 1 U nivers (ZOLOFT) 50 1-10 tablet by ity of mg tablet 00:00: [place] 00 the Medical morning. Branch SERTraline 2021-04 Yes [id number] 50mg Take 1 [facility] (ZOLOFT) 50 1-10 tablet by [facility] [place]: [place] 00 the Medical morning. Branch SERTraline 2021-04 Yes [id number] 50mg Take 1 [facility] (ZOLOFT) 50 1-10 tablet by [facility] tablet 00:[place]: mouth [place] 00 the Medical morning. Branch SERTraline 2021-04 Yes [id number] 50mg Take 1 [facility] (ZOLOFT) 50 1-10 tablet by [facility] tablet 00:00: [place] 00 the Medical morning. Branch SERTraline 2021-04 Yes [id number] 50mg Take 1 [facility] (ZOLOFT) 50 1-10 tablet by [facility] tablet 00:00: [place] 00 the Medical morning. [facility] SERTraline 2021-04 Yes [id number] 50mg Take 1 [facility] (ZOLOFT) 50 1-10 tablet by [facility] tablet 00:00: mouth [place] 00 the Medical morning. [facility] SERTraline 2021-04 Yes [id number] 50mg Take 1 [facility] (ZOLOFT) 50 1-10 tablet by [facility] tablet 00:00: mouth [place] 00 the Medical morning. [facility] SERTraline 2021-04 Yes [id number] 50mg Take 1 [facility] (ZOLOFT) 50 1-10 tablet by [facility] tablet 00:00: mouth [place] 00 the Medical morning. [facility] SERTraline 2021-04 Yes [id number] 50mg Take 1 [facility] (ZOLOFT) 50 1-10 tablet by [facility] tablet 00:00: mouth [place] 00 the Medical morning. Branch SERTraline 2021-04 Yes [id number] 50mg Take 1 [facility] (ZOLOFT) 50 1-10 tablet by [facility] tablet 00:00: mouth [place] 00 the Medical morning. Branch SERTraline 2021-04 Yes [id number] 50mg Take 1 [facility] (ZOLOFT) 50 1-10 tablet by [facility] tablet 00:00: mouth [place] 00 the Medical morning. Branch SERTraline 2021-04 Yes [id number] 50mg Take 1 [facility] (ZOLOFT) 50 1-10 tablet by [facility] tablet 00:00: mouth [place] 00 the Medical morning. Branch SERTraline 2021-04 Yes [id number] 50mg Take 1 [facility] (ZOLOFT) 50 1-10 tablet by [facility] tablet 00:00: mouth [place] 00 the Medical morning. Branch SERTraline 2021-04 Yes [id number] 50mg Take 1 [facility] (ZOLOFT) 50 1-10 tablet by [facility] mg tablet 00:00: mouth [place] 00 the Medical morning. Branch SERTraline 2021-04 Yes [id number] 50mg Take 1 [facility] (ZOLOFT) 50 1-10 tablet by [facility] mg tablet 00:00: mouth [place] 00 the Medical morning. Branch SERTraline 2021-04 Yes [id number] 50mg Take 1 [facility] (ZOLOFT) 50 1-10 tablet by [facility] tablet 00:00: mouth [place] 00 the Medical morning. Branch SERTraline 2021-04 Yes [id number] 50mg Take 1 [facility] (ZOLOFT) 50 1-10 tablet by [facility] mg tablet 00:00: mouth [place] 00 the Medical morning. Branch SERTraline 2021-04 Yes [id number] 50mg Take 1 [facility] (ZOLOFT) 50 1-10 tablet by [facility] mg tablet 00:00: mouth [place] 00 the Medical morning. Branch SERTraline 2021-04 Yes [id number] 50mg Take 1 [facility] (ZOLOFT) 50 1-10 tablet by [facility] mg tablet 00:00: mouth [place] 00 the Medical morning. Branch SERTraline 2021-04 Yes [id number] 50mg Take 1 [facility] (ZOLOFT) 50 1-10 tablet by [facility] mg tablet 00:00: mouth [place] 00 the Medical morning. Branch SERTraline 2021-04 Yes [id number] 50mg Take 1 [facility] (ZOLOFT) 50 1-10 tablet by [facility] tablet 00:00: mouth [place] 00 the Medical morning. Branch SERTraline 2021-04- No [id number] 50mg Take 1 [facility] (ZOLOFT) 50 1-10 -13 tablet by [facility] mg tablet 00:00: 00:00 mouth [place] 00 :00 the Medical morning. Branch SERTraline 2021-04- No [id number] 50mg Take 1 [facility] (ZOLOFT) 50 1-10 04-13 tablet by [facility] mg tablet 00:00: 00:00 mouth [place] 00 :00 the Medical morning. [place] fluconazole 2021-04- No [id number] 200mg Take 1 [facility] (DIFLUCAN) 04-27- tablet by [facility] of 200 mg 00:00: 00:00 mouth in [place] tablet 00 :00 the Medical morning. [place] fluconazole 2021-04- No [id number] 200mg Take 1 [facility] (DIFLUCAN) -01 26- tablet by [facility] of 200 mg 00:00: 00:00 mouth in [place] tablet 00 :00 the Medical morning. [place] fluconazole 2021-04- No [id number] 150mg Take 1 [facility] 150 mg 0-26 10-27 tablet by [facility] tablet 00:00: 04:59 mouth [place] 00 :[place] now for 1 Medical dose. [place] fluconazole 2021-04- No [id number] 150mg Take 1 [facility] 150 mg 0-20 10-21 tablet by [facility] tablet 00:00: 04:59 mouth [place] 00 :[place] now for 1 Medical dose. [place] fluconazole 2021-04- No [id number] 150mg Take 1 [facility] 150 mg 0-20 10-21 tablet by [facility] tablet 00:00: 04:59 [place] 00 :[place] now for 1 Medical dose. [place] SERTraline 2021-04 Yes [id number] 50mg Take 1 [facility] (ZOLOFT) 50 0-12 tablet by [facility] mg tablet 00:00: mouth [place] 00 the Medical morning. [place] SERTraline 2021-04 Yes [id number] 50mg Take 1 [facility] (ZOLOFT) 50 0-12 tablet by [facility] mg tablet 00:00: mouth [place] 00 the Medical morning. [place] SERTraline 2021-04 Yes [id number] 50mg Take 1 [facility] (ZOLOFT) 50 0-12 tablet by [facility] mg tablet 00:00: mouth [place] 00 the Medical morning. Branch SERTraline 2021-04 Yes [id number] 50mg Take 1 [facility] (ZOLOFT) 50 0-12 tablet by [facility] mg tablet 00:00: mouth [place] 00 the Medical morning. Branch SERTraline 2021-04 Yes [id number] 50mg Take 1 [facility] (ZOLOFT) 50 0-12 tablet by [facility] mg tablet 00:00: mouth [place] 00 the Medical morning. Branch SERTraline 2021-04 Yes [id number] 50mg Take 1 [facility] (ZOLOFT) 50 0-12 tablet by [facility] mg tablet 00:00: mouth [place] 00 the Medical morning. Branch SERTraline 2021-04 Yes [id number] 50mg Take 1 [facility] (ZOLOFT) 50 0-12 tablet by [facility] mg tablet 00:00: mouth [place] 00 the Medical morning. Branch SERTraline 2021-04 Yes [id number] 50mg Take 1 [facility] (ZOLOFT) 50 0-12 tablet by [facility] mg tablet 00:00: mouth [place] 00 the Medical morning. Branch SERTraline 2021-04 Yes [id number] 50mg Take 1 [facility] (ZOLOFT) 50 0-12 tablet by [facility] mg tablet 00:00: mouth [place] 00 the Medical morning. [facility] SERTraline 2021-04 Yes [id number] 50mg Take 1 [facility] (ZOLOFT) 50 0-12 tablet by [facility] mg tablet 00:00: mouth [place] 00 the Medical morning. Branch SERTraline 2021-04 Yes [id number] 50mg Take 1 [facility] (ZOLOFT) 50 0-12 tablet by [facility] mg tablet 00:00: [place] 00 the Medical morning. Branch SERTraline 2021-04- No [id number] 50mg Take 1 [facility] (ZOLOFT) 50 0-12 11-10 tablet by [facility] of mg tablet 00:00: 00:00 mouth [place] 00 :00 the Medical morning. Branch SERTraline 2021-04- No [id number] 50mg Take 1 [facility] (ZOLOFT) 50 0-12 11-10 tablet by [facility] y of mg tablet 00:00: 00:00 mouth [place] 00 :00 the Medical morning. Branch SERTraline 2021-04- No [id number] 50mg Take 1 [facility] (ZOLOFT) 50 0-12 11-10 tablet by [facility] y of mg tablet 00:00: 00:00 mouth [place] 00 :00 the Medical morning. Branch SERTraline 2021-04- No [id number] 50mg Take 1 [facility] (ZOLOFT) 50 0-12 11-10 tablet by it y of mg tablet 00:00: 00:00 mouth in [place] [facility] as 00 :00 the Medical morning. Branch SERTraline 2021-04- No [id number] 50mg Take 1 [facility] (ZOLOFT) 50 0-12 11-10 tablet by it y of mg tablet 00:00: 00:00 mouth in [place] [facility] as 00 :00 the Medical morning. Branch norethindro Yes [id number] 1{tbl} Take 1 [facility] ne 0.35 mg 7-21 tablet by it[facility] of tablet 00:00: mouth in [place] 00 the Medical morning. Branch SERTraline Yes [id number] 25mg Take 1 [facility] (ZOLOFT) 25 7-21 tablet by ity of mg tablet 00:00: mouth in [facility] 00 the Medical morning. Branch norethindro Yes [id number] 1{tbl} Take 1 [facility] ne 0.35 mg 7-21 tablet by [facility] of tablet 00:00: mouth in [place] 00 the Medical morning. Branch norethindro Yes [id number] 1{tbl} Take 1 [facility] ne 0.35 mg 7-21 tablet by [facility] of tablet 00:00: mouth in [place] 00 the Medical morning. Branch norethindro 2021-0 Yes [id number] 1{tbl} Take 1 [facility] ne 0.35 mg 7-21 tablet by [facility] of tablet 00:00: mouth in [place] 00 the Medical morning. Branch norethindro 2021-0 Yes [id number] 1{tbl} Take 1 [facility] ne 0.35 mg 7-21 tablet by [facility] of tablet 00:00: mouth in [place] 00 the Medical morning. Branch norethindro 2021-0 Yes [id number] 1{tbl} Take 1 [facility] ne 0.35 mg 7-21 tablet by [facility] of tablet 00:00: mouth in [place] 00 the Medical morning. Branch norethindro 2021-0 Yes [id number] 1{tbl} Take 1 [facility] ne 0.35 mg 7-21 tablet by [facility] of tablet 00:00: mouth in [place] 00 the Medical morning. Branch norethindro 2021-0 Yes [id number] 1{tbl} Take 1 [facility] ne 0.35 mg 7-21 tablet by [facility] of tablet 00:00: mouth in [place] 00 the Medical morning. Branch norethindro 2021-0 Yes [id number] 1{tbl} Take 1 [facility] ne 0.35 mg 7-21 tablet by [facility] of tablet 00:00: mouth in [place] 00 the Medical morning. Branch norethindro 2021-0 Yes [id number] 1{tbl} Take 1 [facility] ne 0.35 mg 7-21 tablet by [facility] of tablet 00:00: mouth in [place] 00 the Medical morning. Branch norethindro 2021-0 Yes [id number] 1{tbl} Take 1 [facility] ne 0.35 mg 7-21 tablet by [facility] of tablet 00:00: mouth in [place] 00 the Medical morning. Branch norethindro 2021-0 Yes [id number] 1{tbl} Take 1 [facility] ne 0.35 mg 7-21 tablet by [facility] of tablet 00:00: mouth in [place] 00 the Medical morning. Branch norethindro 0 Yes [id number] 1{tbl} Take 1 [facility] ne 0.35 mg 7-21 tablet by [facility] of tablet 00:00: mouth in [place] 00 the Medical morning. Branch norethindro 2021-0 Yes [id number] 1{tbl} Take 1 [facility] ne 0.35 mg 7-21 tablet by [facility] of tablet 00:00: mouth in [place] 00 the Medical morning. Branch norethindro 2021-0 Yes [id number] 1{tbl} Take 1 [facility] ne 0.35 mg 7-21 tablet by [facility] of tablet 00:00: mouth in [place] 00 the Medical morning. Branch norethindro 2021-0 Yes [id number] 1{tbl} Take 1 [facility] ne 0.35 mg 7-21 tablet by [facility] of tablet 00:00: mouth in [place] 00 the Medical morning. Branch norethindro 2021-0 Yes [id number] 1{tbl} Take 1 [facility] ne 0.35 mg 7-21 tablet by [facility] of tablet 00:00: mouth in [place] 00 the Medical morning. Branch norethindro 2021-0 Yes [id number] 1{tbl} Take 1 [facility] ne 0.35 mg 7-21 tablet by [facility] of tablet 00:00: mouth in [place] 00 the Medical morning. Branch norethindro 2021-0 Yes [id number] 1{tbl} Take 1 [facility] ne 0.35 mg 7-21 tablet by [facility] of tablet 00:00: mouth in [place] 00 the Medical morning. Branch norethindro 2021-0 Yes [id number] 1{tbl} Take 1 [facility] ne 0.35 mg 7-21 tablet by [facility] of tablet 00:00: mouth in [place] 00 the Medical morning. Branch norethindro 2021-0 Yes [id number] 1{tbl} Take 1 [facility] ne 0.35 mg 7-21 tablet by [facility] of tablet 00:00: mouth in [place] 00 the Medical morning. Branch norethindro 2021-0 Yes [id number] 1{tbl} Take 1 [facility] ne 0.35 mg 7-21 tablet by ity of tablet 00:00: mouth in [place] 00 the Medical morning. Branch norethindro 2021-0 Yes [id number] 1{tbl} Take 1 [facility] ne 0.35 mg 7-21 tablet by ity of tablet 00:00: mouth in [place] the Medical morning. Branch norethindro 2021-0 Yes [id number] 1{tbl} Take 1 [facility] ne 0.35 mg 7-21 tablet by ity of tablet 00:00: mouth in [place] the Medical morning. Branch norethindro 2021-0 Yes [id number] 1{tbl} Take 1 [facility] ne 0.35 mg 7-21 tablet by ity of tablet 00:00: mouth in [place] 00 the Medical morning. Branch norethindro 2021-0 Yes [id number] 1{tbl} Take 1 [facility] ne 0.35 mg 7-21 tablet by ity of tablet 00:00: mouth in [place] 00 the Medical morning. Branch norethindro 2021-0 Yes [id number] 1{tbl} Take 1 [facility] ne 0.35 mg 7-21 tablet by ity of tablet 00:00: mouth in [place] 00 the Medical morning. Branch norethindro 2021-0 Yes [id number] 1{tbl} Take 1 [facility] ne 0.35 mg 7-21 tablet by ity of tablet 00:00: mouth in [place] 00 the Medical morning. Branch norethindro 2021-0 Yes [id number] 1{tbl} Take 1 [facility] ne 0.35 mg 7-21 tablet by [facility]y of tablet 00:00: mouth in [place] 00 the Medical morning. Branch norethindro 2021-0 Yes [id number] 1{tbl} Take 1 [facility] ne 0.35 mg 7-21 tablet by [facility] of tablet 00:00: mouth in [place] 00 the Medical morning. Branch norethindro 2021-0 Yes [id number] 1{tbl} Take 1 [facility] ne 0.35 mg 7-21 tablet by [facility]y of tablet 00:00: mouth in [place] 00 the Medical morning. Branch norethindro 2021-0 Yes [id number] 1{tbl} Take 1 [facility] ne 0.35 mg 7-21 tablet by [facility] of tablet 00:00: mouth in [place] 00 the Medical morning. Branch norethindro 2021-0 Yes [id number] 1{tbl} Take 1 [facility] ne 0.35 mg 7-21 tablet by [facility] of tablet 00:00: mouth in [place] the Medical morning. Branch norethindro 2021-0 Yes [id number] 1{tbl} Take 1 [facility] ne 0.35 mg 7-21 tablet by ity of tablet 00:00: mouth in [place] the Medical morning. Branch norethindro 2021-0 Yes [id number] 1{tbl} Take 1 [facility] ne 0.35 mg 7-21 tablet by [facility] of tablet 00:00: mouth in [place] 00 the Medical morning. Branch norethindro 2021-0 Yes [id number] 1{tbl} Take 1 [facility] ne 0.35 mg 7-21 tablet by [facility] of tablet 00:00: mouth in [place] 00 the Medical morning. Branch norethindro 2021-0 Yes [id number] 1{tbl} Take 1 [facility] ne 0.35 mg 7-21 tablet by [facility] of tablet 00:00: mouth in [place] 00 the Medical morning. Branch norethindro 2021-0 Yes [id number] 1{tbl} Take 1 [facility] ne 0.35 mg 7-21 tablet by [facility] of tablet 00:00: mouth in [place] 00 the Medical morning. Branch norethindro 2022-0 Yes [id number] 1{tbl} Take 1 [facility] ne 0.35 mg 7-21 tablet by [facility]y of tablet 00:00: mouth in [place] 00 the Medical morning. Branch norethindro Yes [id number] 1{tbl} Take 1 [facility] ne 0.35 mg 7-21 tablet by [facility]y of tablet 00:00: mouth in [place] 00 the Medical morning. Branch norethindro 0 Yes [id number] 1{tbl} Take 1 [facility] ne 0.35 mg 7-21 tablet by [facility] of tablet 00:00: mouth in [place] 00 the Medical morning. Branch norethindro Yes [id number] 1{tbl} Take 1 [facility] ne 0.35 mg 7-21 tablet by [facility]y of tablet 00:00: mouth in [place] 00 the Medical morning. Branch norethindro Yes [id number] 1{tbl} Take 1 [facility] ne 0.35 mg 7-21 tablet by ity of tablet 00:00: mouth in [place] the Medical morning. Branch norethindro Yes [id number] 1{tbl} Take 1 [facility] ne 0.35 mg 7-21 tablet by ity of tablet 00:00: mouth in [place] the Medical morning. Branch norethindro 2021- Yes [id number] 1{tbl} Take 1 [facility] ne 0.35 mg 7-21 tablet by [facility]y of tablet 00:00: mouth in [place] 00 the Medical morning. Branch norethindro 2021-0 Yes [id number] 1{tbl} Take 1 [facility] ne 0.35 mg 7-21 tablet by [facility]y of tablet 00:00: mouth in [place] 00 the Medical morning. Branch norethindro 2021-0 Yes [id number] 1{tbl} Take 1 [facility] ne 0.35 mg 7-21 tablet by ity of tablet 00:00: mouth in [place] 00 the Medical morning. Branch norethindro 2021-0 Yes [id number] 1{tbl} Take 1 [facility] ne 0.35 mg 7-21 tablet by ity of tablet 00:00: mouth in [place] 00 the Medical morning. Branch norethindro 2021-0 Yes [id number] 1{tbl} Take 1 [facility] ne 0.35 mg 7-21 tablet by ity of tablet 00:00: mouth in [place] 00 the Medical morning. Branch norethindro 2021-0 Yes [id number] 1{tbl} Take 1 [facility] ne 0.35 mg 7-21 tablet by ity of tablet 00:00: mouth in [place] 00 the Medical morning. Branch norethindro 2021-0 Yes [id number] 1{tbl} Take 1 [facility] ne 0.35 mg 7-21 tablet by ity of tablet 00:00: mouth in [place] 00 the Medical morning. Branch norethindro 2021-0 Yes [id number] 1{tbl} Take 1 [facility] ne 0.35 mg 7-21 tablet by ity of tablet 00:00: mouth in [place] 00 the Medical morning. Branch norethindro 2021-0 Yes [id number] 1{tbl} Take 1 [facility] ne 0.35 mg 7-21 tablet by ity of tablet 00:00: mouth in [place] 00 the Medical morning. Branch norethindro 2021-0 Yes [id number] 1{tbl} Take 1 [facility] ne 0.35 mg 7-21 tablet by [facility]y of tablet 00:00: mouth in [place] 00 the Medical morning. Branch norethindro 2021-0 Yes [id number] 1{tbl} Take 1 [facility] ne 0.35 mg 7-21 tablet by ity of tablet 00:00: mouth in [place] 00 the Medical morning. Branch norethindro 2021-0 Yes [id number] 1{tbl} Take 1 [facility] ne 0.35 mg 7-21 tablet by ity of tablet 00:00: mouth in [place] 00 the Medical morning. Branch norethindro 2021-0 Yes [id number] 1{tbl} Take 1 [facility] ne 0.35 mg 7-21 tablet by ity of tablet 00:00: mouth in [place] 00 the Medical morning. Branch norethindro 2021-0 Yes [id number] 1{tbl} Take 1 [facility] ne 0.35 mg 7-21 tablet by ity of tablet 00:00: mouth in [place] 00 the Medical morning. Branch norethindro 2021-0 Yes [id number] 1{tbl} Take 1 [facility] ne 0.35 mg 7-21 tablet by ity of tablet 00:00: mouth in [place] 00 the Medical morning. Branch norethindro 2021-0 Yes [id number] 1{tbl} Take 1 [facility] ne 0.35 mg 7-21 tablet by ity of tablet 00:00: mouth in [place] 00 the Medical morning. Branch norethindro 2021-0 Yes [id number] 1{tbl} Take 1 [facility] ne 0.35 mg 7-21 tablet by ity of tablet 00:00: mouth in [place] 00 the Medical morning. Branch norethindro 2021-0 Yes [id number] 1{tbl} Take 1 [facility] ne 0.35 mg 7-21 tablet by [facility]y of tablet 00:00: mouth in [place] 00 the Medical morning. Branch norethindro 2021-0 Yes [id number] 1{tbl} Take 1 [facility] ne 0.35 mg 7-21 tablet by [facility]y of tablet 00:00: mouth in [place] 00 the Medical morning. Branch norethindro 2021-0 Yes [id number] 1{tbl} Take 1 [facility] ne 0.35 mg 7-21 tablet by [facility]y of tablet 00:00: mouth in [place] the Medical morning. Branch norethindro 2021-0 Yes [id number] 1{tbl} Take 1 [facility] ne 0.35 mg 7-21 tablet by [facility]y of tablet 00:00: mouth in [place] 00 the Medical morning. Branch norethindro 2021-0 Yes [id number] 1{tbl} Take 1 [facility] ne 0.35 mg 7-21 tablet by ity of tablet 00:00: mouth in [place] 00 the Medical morning. Branch SERTraline 2021-0 Yes [id number] 25mg Take 1 [facility] (ZOLOFT) 25 7-21 tablet by ity of mg tablet 00:00: mouth in [facility] 00 the Medical morning. Branch norethindro 2021-0 Yes [id number] 1{tbl} Take 1 [facility] ne 0.35 mg 7-21 tablet by ity of tablet 00:00: mouth in [place] 00 the Medical morning. Branch SERTraline 2021-0 Yes [id number] 25mg Take 1 [facility] (ZOLOFT) 25 7-21 tablet by ity of mg tablet 00:00: mouth in [place] [address] the Medical morning. Branch norethindro 2021-0 Yes [id number] 1{tbl} Take 1 [facility] ne 0.35 mg 7-21 tablet by ity of tablet 00:00: mouth in [place] 00 the Medical morning. Branch SERTraline Yes [id number] 25mg Take 1 [facility] (ZOLOFT) 25 7-21 tablet by [facility] mg tablet 00:00: [place] 00 the Medical morning. Branch SERTraline 2021- No [id number] 25mg Take 1 [facility] (ZOLOFT) 25 7-21 10-12 tablet by it y of mg tablet 00:00: 00:00 mouth [place] :00 the Medical morning. Branch SERTraline 2021- No [id number] 25mg Take 1 [facility] (ZOLOFT) 25 7-21 10-12 tablet by it y of mg tablet 00:00: 00:00 mouth [place] 00 :00 the Medical morning. Branch SERTraline 2021- No [id number] 25mg Take 1 [facility] (ZOLOFT) 25 6-15 07-21 tablet by it y of mg tablet 00:00: 00:00 mouth [place] 00 :00 daily. Medical Branch SERTraline 2021- No [id number] 25mg Take 1 [facility] (ZOLOFT) 25 6-15 07-21 tablet by it y of mg tablet 00:00: 00:00 mouth [place] 00 :00 daily. Medical Branch polycarboph Yes [id number] 625mg Take 1 [facility] il 5-09 tablet by ity of (FIBERCON) 00:00: mouth [place] 625 mg 00 daily. Medical tablet Branch hydrocortis Yes [id number] 25mg Insert 1 [facility] one 25 mg 5-09 Suppositor [facility]y of suppository 00:00: y [place] 00 rectum 2 Medical (two) Branch times daily as needed for Rectal itching/pa in. polycarboph Yes [id number] 625mg Take 1 [facility] il 5-09 tablet by ity of (FIBERCON) 00:00: mouth [place] 625 mg 00 daily. Medical tablet Branch hydrocortis Yes [id number] 25mg Insert 1 [facility] one 25 mg 5-09 Suppositor ity of suppository 00:00: y [place] 00 rectum 2 Medical (two) Branch times daily as needed for Rectal itching/pa in. polycarboph Yes [id number] 625mg Take 1 [facility] il 5-09 tablet by ity of (FIBERCON) 00:00: mouth [place] 625 mg 00 daily. Medical tablet Branch hydrocortis Yes [id number] 25mg Insert 1 [facility] one 25 mg 5-09 Suppositor ity of suppository 00:00: y [place] 00 rectum 2 Medical (two) Branch times daily as needed for Rectal itching/pa in. polycarboph Yes [id number] 625mg Take 1 [facility] il 5-09 tablet by ity of (FIBERCON) 00:00: mouth [place] 625 mg 00 daily. Medical tablet Branch hydrocortis Yes [id number] 25mg Insert 1 [facility] one 25 mg 5-09 Suppositor ity of suppository 00:00: y into [place] 00 rectum 2 Medical (two) Branch times daily as needed for Rectal itching/pa in. polycarboph Yes [id number] 625mg Take 1 [facility] il 5-09 tablet by ity of (FIBERCON) 00:00: mouth [place] 625 mg 00 daily. Medical tablet Branch hydrocortis Yes [id number] 25mg Insert 1 [facility] one 25 mg 5-09 Suppositor ity of suppository 00:00: y into [place] 00 rectum 2 Medical (two) Branch times daily as needed for Rectal itching/pa in. polycarboph Yes [id number] 625mg Take 1 [facility] il 5-09 tablet by ity of (FIBERCON) 00:00: mouth [place] 625 mg 00 daily. Medical tablet Branch hydrocortis Yes [id number] 25mg Insert 1 [facility] one 25 mg 5-09 Suppositor [facility]y of suppository 00:00: y [place] 00 rectum 2 Medical (two) Branch times daily as needed for Rectal itching/pa in. polycarboph 0 Yes [id number] 625mg Take 1 [facility] il 5-09 tablet by ity of (FIBERCON) 00:00: mouth [place] 625 mg 00 daily. Medical tablet Branch hydrocortis Yes [id number] 25mg Insert 1 [facility] one 25 mg 5-09 Suppositor [facility]y of suppository 00:00: [place] rectum 2 Medical (two) Branch times daily as needed for Rectal itching/pa in. polycarboph Yes [id number] 625mg Take 1 [facility] il 5-09 tablet by ity of (FIBERCON) 00:00: mouth [place] 625 mg 00 daily. Medical tablet Branch hydrocortis Yes [id number] 25mg Insert 1 [facility] one 25 mg 5-09 Suppositor [facility]y of suppository 00:00: [place] rectum 2 Medical (two) Branch times daily as needed for Rectal itching/pa in. polycarboph Yes [id number] 625mg Take 1 [facility] il 5-09 tablet by ity of (FIBERCON) 00:00: mouth [place] 625 mg 00 daily. Medical tablet Branch hydrocortis Yes [id number] 25mg Insert 1 [facility] one 25 mg 5-09 Suppositor ity of suppository 00:00: y into [place] 2 Medical (two) Branch times daily as needed for Rectal itching/pa in. polycarboph Yes [id number] 625mg Take 1 [facility] il 5-09 tablet by ity of (FIBERCON) 00:00: mouth [place] 625 mg 00 daily. Medical tablet Branch hydrocortis Yes [id number] 25mg Insert 1 [facility] one 25 mg 5-09 Suppositor ity of suppository 00:00: y into [place] 2 Medical (two) Branch times daily as needed for Rectal itching/pa in. polycarboph Yes [id number] 625mg Take 1 [facility] il 5-09 tablet by ity of (FIBERCON) 00:00: mouth [place] 625 mg 00 daily. Medical tablet Branch hydrocortis Yes [id number] 25mg Insert 1 [facility] one 25 mg 5-09 Suppositor [facility] of suppository 00:00: [place] rectum 2 Medical (two) Branch times daily as needed for Rectal itching/pa in. polycarboph Yes [id number] 625mg Take 1 [facility] il 5-09 tablet by ity of (FIBERCON) 00:00: mouth [place] 625 mg 00 daily. Medical tablet Branch hydrocortis Yes [id number] 25mg Insert 1 [facility] one 25 mg 5-09 Suppositor [facility]y of suppository 00:00: y [place] 00 rectum 2 Medical (two) Branch times daily as needed for Rectal itching/pa in. polycarboph Yes [id number] 625mg Take 1 [facility] il 5-09 tablet by ity of (FIBERCON) 00:00: mouth [place] 625 mg 00 daily. Medical tablet Branch hydrocortis Yes [id number] 25mg Insert 1 [facility] one 25 mg 5-09 Suppositor [facility]y of suppository 00:00: y [place] 00 rectum 2 Medical (two) Branch times daily as needed for Rectal itching/pa in. polycarboph Yes [id number] 625mg Take 1 [facility] il 5-09 tablet by ity of (FIBERCON) 00:00: mouth [place] 625 mg 00 daily. Medical tablet Branch hydrocortis Yes [id number] 25mg Insert 1 [facility] one 25 mg 5-09 Suppositor [facility]y of suppository 00:00: y [place] 00 rectum 2 Medical (two) Branch times daily as needed for Rectal itching/pa in. polycarboph Yes [id number] 625mg Take 1 [facility] il 5-09 tablet by ity of (FIBERCON) 00:00: mouth [place] 625 mg 00 daily. Medical tablet Branch hydrocortis Yes [id number] 25mg Insert 1 [facility] one 25 mg 5-09 Suppositor [facility]y of suppository 00:00: y [place] 00 rectum 2 Medical (two) Branch times daily as needed for Rectal itching/pa in. polycarboph 2021- No [id number] 625mg Take 1 [facility] il 5-09 11-10 tablet by ity of (FIBERCON) 00:00: 00:00 mouth [place] 625 mg 00 :00 daily. Medical tablet Branch hydrocortis 2021- No [id number] 25mg Insert 1 [facility] one 25 mg 5-09 11-10 Suppositor ity of suppository 00:00: 00:00 y into [place] 00 :00 rectum 2 Medical (two) Branch times daily as needed for Rectal itching/pa in. polycarboph 2021- No [id number] 625mg Take 1 [facility] il 5-09 11-10 tablet by ity of (FIBERCON) 00:00: 00:00 mouth [place] 625 mg 00 :00 daily. Medical tablet Branch hydrocortis 2021- No [id number] 25mg Insert 1 [facility] one 25 mg 08-2410 Suppositor ity of suppository 00:00: 00:00 y into [place] 00 :00 rectum 2 Medical (two) Branch times daily as needed for Rectal itching/pa in. polycarboph 2021- No [id number] 625mg Take 1 [facility] il 08-24- tablet by ity of (FIBERCON) 00:00: 00:00 mouth [place] 625 mg 00 :00 daily. Medical tablet Branch hydrocortis 2021- No [id number] 25mg Insert 1 [facility] one 25 mg -02-25 Suppositor ity of suppository 00:00: 00:00 y into [place] 00 :00 rectum 2 Medical (two) Branch times daily as needed for Rectal itching/pa in. polycarboph 2021- No [id number] 625mg Take 1 [facility] il 08-24 tablet by ity of (FIBERCON) 00:00: 00:00 mouth [place] 625 mg 00 :00 daily. Medical tablet Branch hydrocortis 2021- No [id number] 25mg Insert 1 [facility] one 25 mg 08-24 Suppositor ity of suppository 00:00: 00:00 y into [place] 00 :00 rectum 2 Medical (two) Branch times daily as needed for Rectal itching/pa in. polycarboph 2021- No [id number] 625mg Take 1 [facility] 08-24 tablet by ity of (FIBERCON) 00:00: 00:00 mouth [place] 625 mg 00 :00 daily. Medical tablet Branch hydrocortis 2021- No [id number] 25mg Insert 1 [facility] one 25 mg 08-24 Suppositor ity of suppository 00:00: 00:00 y into [place] 00 :00 rectum 2 Medical (two) Branch times daily as needed for Rectal itching/pa in. norethindro 2021- No [id number] 1{tbl} Take 1 [facility] ne 0.35 mg 5-12 23- tablet by ity of tablet 00:00: 00:00 mouth [place] 00 :00 daily. Medical Branch norethindro 2021- No [id number] 1{tbl} Take 1 [facility] ne 0.35 mg 5-12 23-21 tablet by ity of tablet 00:00: 00:00 mouth [place] 00 :00 daily. Medical Branch Yes [id number] 1{tbl} Take 1 [facility] vitamin 3-29 tablet by ity of w/FA tablet 00:00: mouth [place] 00 daily. Medical Branch docusate Yes [id number] 240mg Take 1 [facility] n[facility] calcium 240 3-29 capsule by it y of mg capsule 00:00: mouth [place] 00 daily as Medical needed for Branch Constipati on. Yes [id number] 1{tbl} Take 1 [facility] vitamin 3-29 tablet by ity of w/FA tablet 00:00: mouth [place] 00 daily. Medical Branch docusate Yes [id number] 240mg Take 1 [facility] nivers calcium 240 3-29 capsule by it y of mg capsule 00:00: mouth once [place] 00 daily as Medical needed for Branch Constipati on. Yes [id number] 1{tbl} Take 1 [facility] vitamin 3-29 tablet by ity of w/FA tablet 00:00: mouth [place] 00 daily. Medical Branch docusate Yes [id number] 240mg Take 1 [facility] nivers calcium 240 3-29 capsule by it y of mg capsule 00:00: mouth once [place] 00 daily as Medical needed for Branch Constipati on. Yes [id number] 1{tbl} Take 1 [facility] vitamin 3-29 tablet by ity of w/FA tablet 00:00: mouth [place] 00 daily. Medical Branch docusate Yes [id number] 240mg Take 1 [facility] nivers calcium 240 3-29 capsule by it y of mg capsule 00:00: mouth once [place] 00 daily as Medical needed for Branch Constipati on. Yes [id number] 1{tbl} Take 1 [facility] vitamin 3-29 tablet by ity of w/FA tablet 00:00: mouth [place] 00 daily. Medical Branch docusate Yes [id number] 240mg Take 1 [facility] nivers calcium 240 3-29 capsule by it y of mg capsule 00:00: mouth once [place] 00 daily as Medical needed for Branch Constipati on. Yes [id number] 1{tbl} Take 1 [facility] vitamin 3-29 tablet by ity of w/FA tablet 00:00: mouth [place] 00 daily. Medical Branch docusate Yes [id number] 240mg Take 1 [facility] nivers calcium 240 3-29 capsule by it y of mg capsule 00:00: mouth once [place] 00 daily as Medical needed for Branch Constipati on. Yes [id number] 1{tbl} Take 1 [facility] vitamin 3-29 tablet by ity of w/FA tablet 00:00: mouth [place] 00 daily. Medical Branch docusate Yes [id number] 240mg Take 1 [facility] nivers calcium 240 3-29 capsule by it y of mg capsule 00:00: mouth once [place] 00 daily as Medical needed for Branch Constipati on. Yes [id number] 1{tbl} Take 1 [facility] vitamin 3-29 tablet by ity of w/FA tablet 00:00: mouth [place] 00 daily. Medical Branch docusate Yes [id number] 240mg Take 1 [facility] nivers calcium 240 3-29 capsule by it y of mg capsule 00:00: mouth once [place] 00 daily as Medical needed for Branch Constipati on. Yes [id number] 1{tbl} Take 1 [facility] vitamin 3-29 tablet by ity of w/FA tablet 00:00: mouth [place] 00 daily. Medical Branch docusate Yes [id number] 240mg Take 1 [facility] nivers calcium 240 3-29 capsule by it y of mg capsule 00:00: mouth once [place] 00 daily as Medical needed for Branch Constipati on. Yes [id number] 1{tbl} Take 1 [facility] vitamin 3-29 tablet by ity of w/FA tablet 00:00: mouth [place] 00 daily. Medical Branch docusate Yes [id number] 240mg Take 1 [facility] nivers calcium 240 3-29 capsule by it y of mg capsule 00:00: mouth once [place] 00 daily as Medical needed for Branch Constipati on. 0 Yes [id number] 1{tbl} Take 1 [facility] vitamin 3-29 tablet by ity of w/FA tablet 00:00: mouth [place] 00 daily. Medical Branch docusate 0 Yes [id number] 240mg Take 1 [facility] nivers calcium 240 3-29 capsule by it y of mg capsule 00:00: mouth once [place] 00 daily as Medical needed for Branch Constipati on. 0 Yes [id number] 1{tbl} Take 1 [facility] vitamin 3-29 tablet by ity of w/FA tablet 00:00: mouth [place] 00 daily. Medical Branch docusate Yes [id number] 240mg Take 1 [facility] nivers calcium 240 3-29 capsule by it y of mg capsule 00:00: mouth once [place] 00 daily as Medical needed for Branch Constipati on. Yes [id number] 1{tbl} Take 1 [facility] vitamin 3-29 tablet by ity of w/FA tablet 00:00: mouth [place] 00 daily. Medical Branch docusate Yes [id number] 240mg Take 1 [facility] nivers calcium 240 3-29 capsule by it y of mg capsule 00:00: mouth once [place] 00 daily as Medical needed for Branch Constipati on. 0 Yes [id number] 1{tbl} Take 1 [facility] vitamin 3-29 tablet by ity of w/FA tablet 00:00: mouth [place] 00 daily. Medical Branch docusate 0 Yes [id number] 240mg Take 1 [facility] nivers calcium 240 3-29 capsule by it y of mg capsule 00:00: mouth once [place] 00 daily as Medical needed for Branch Constipati on. 2021-0 Yes [id number] 1{tbl} Take 1 [facility] vitamin 3-29 tablet by ity of w/FA tablet 00:00: mouth [place] 00 daily. Medical Branch docusate 0 Yes [id number] 240mg Take 1 [facility] nivers calcium 240 3-29 capsule by it y of mg capsule 00:00: mouth once [place] 00 daily as Medical needed for Branch Constipati on. 2021-0 202- No [id number] 1{tbl} Take 1 [facility] vitamin 3-29 11-10 tablet by ity of w/FA tablet 00:00: 00:[place] 00 :00 daily. [facility] 2021- No [id number] 240mg Take 1 [facility] calcium 240 3-29 11-10 capsule by i ty of mg capsule 00:00: 00:00 mouth once [place] 00 :00 daily as Medical needed for Branch Constipati on. 2021- No [id number] 1{tbl} Take 1 [facility] vitamin 3-29 11-10 tablet by [facility]y of w/FA tablet 00:00: 00:[place] 00 :00 daily. [facility] No [id number] 240mg Take 1 [facility] calcium 240 3-29 11-10 capsule by i ty of mg capsule 00:00: 00:00 mouth once [place] 00 :00 daily as Medical needed for Branch Constipati on. No [id number] 1{tbl} Take 1 [facility] vitamin 3-29 11-10 tablet by ity of w/FA tablet 00:00: 00:[place] 00 :00 daily. [facility] No [id number] 240mg Take 1 [facility] calcium 240 3-29 11-10 capsule by i ty of mg capsule 00:00: 00:00 mouth once [place] 00 :00 daily as Medical needed for Branch Constipati on. 2021- No [id number] 1{tbl} Take 1 [facility] vitamin 3-29 11-10 tablet by ity of w/FA tablet 00:00: 00:[place] 00 :00 daily. [facility] 2021- No [id number] 240mg Take 1 [facility] calcium 240 3-29 11-10 capsule by i ty of mg capsule 00:00: 00:00 mouth once [place] 00 :00 daily as Medical needed for Branch Constipati on. No [id number] 1{tbl} Take 1 [facility] vitamin 3-29 11-10 tablet by ity of w/FA tablet 00:00: 00:[place] 00 :00 daily. [facility] No [id number] 240mg Take 1 [facility] calcium 240 3-29 11-10 capsule by i ty of mg capsule 00:00: 00:00 mouth once [place] 00 :00 daily as Medical needed for Branch Constipati on. Immunizations Ordered Filled Immunization Date Status Comments [facility] e Immunization Name Name Influenza Virus 2022-02-25 Completed [facility]it y of Vaccine [facility], 00:00:00 [place] Me dical Preserv and ABX Branch Free 6 MO-64 YRS Influenza Virus 2022-02-25 Completed [facility]it y of Vaccine [facility], 00:00:00 [place] Me dical Preserv and ABX Branch Free 6 MO-64 YRS Influenza Virus 2022-02-25 Completed [facility]it y of Vaccine [facility], 00:00:00 [place] Me dical Preserv and ABX Branch Free 6 MO-64 YRS Influenza Virus 2022-02-25 Completed [facility]it y of Vaccine [facility], 00:00:00 [place] Me dical Preserv and ABX Branch Free 6 MO-64 YRS Influenza Virus 2022-02-25 Completed [facility] y of Vaccine [facility], 00:00:00 [place] Me dical Preserv and ABX Branch Free 6 MO-64 YRS Influenza Virus 2022-02-25 Completed [facility] y of Vaccine [facility], 00:00:00 [place] Me dical Preserv and ABX Branch Free 6 MO-64 YRS Influenza Virus 2022-02-25 Completed [facility] y of Vaccine [facility], 00:00:00 [place] Me dical Preserv and ABX Branch Free 6 MO-64 YRS Influenza Virus 2022-02-25 Completed [facility]it y of Vaccine [facility], 00:00:00 [place] Me dical Preserv and ABX Branch Free 6 MO-64 YRS Influenza Virus 2022-02-25 Completed [facility]it y of Vaccine [facility], 00:00:00 [place] Me dical Preserv and ABX Branch Free 6 MO-64 YRS Influenza Virus 2022-02-25 Completed [facility] y of Vaccine [facility], 00:00:00 [place] Me dical Preserv and ABX Branch Free 6 MO-64 YRS Influenza Virus 2022-02-25 Completed [facility] y of Vaccine [facility] IM, 00:00:00 [place] Me dical Preserv and ABX Branch Free 6 MO-64 YRS Influenza Virus 2022-02-25 Completed [facility]it y of Vaccine Quad IM, 00:00:00 [place] Me dical Preserv and ABX Branch Free 6 MO-64 YRS Influenza Virus 2022-02-25 Completed [facility]it y of Vaccine Quad IM, 00:00:00 [place] Me dical Preserv and ABX Branch Free 6 MO-64 YRS Influenza Virus 2022-02-25 Completed [facility]it y of Vaccine [facility] IM, 00:00:00 [place] Me dical Preserv and ABX Branch Free 6 MO-64 YRS Influenza Virus 2022-02-25 Completed [facility]it y of Vaccine [facility] IM, 00:00:00 [place] Me dical Preserv and ABX Branch Free 6 MO-64 YRS Influenza Virus 2022-02-25 Completed [facility]it y of Vaccine [facility] IM, 00:00:00 [place] Me dical Preserv and ABX Branch Free 6 MO-64 YRS Influenza Virus 2022-02-25 Completed [facility] y of Vaccine [facility] IM, 00:00:00 [place] Me dical Preserv and ABX Branch Free 6 MO-64 YRS Influenza Virus 2022-02-25 Completed [facility]it y of Vaccine [facility] IM, 00:00:00 [place] Me dical Preserv and ABX Branch Free 6 MO-64 YRS Influenza Virus 2022-02-25 Completed [facility]it y of Vaccine [facility] IM, 00:00:00 [place] Me dical Preserv and ABX Branch Free 6 MO-64 YRS Influenza Virus 2022-02-25 Completed [facility]it y of Vaccine [facility] IM, 00:00:00 [place] Me dical Preserv and ABX Branch Free 6 MO-64 YRS Influenza Virus 2022-02-25 Completed [facility]it y of Vaccine [facility] IM, 00:00:00 [place] Me dical Preserv and ABX Branch Free 6 MO-64 YRS Influenza Virus 2022-02-25 Completed [facility]it y of Vaccine Quad IM, 00:00:00 [place] Me dical Preserv and ABX Branch Free 6 MO-64 YRS Influenza Virus 2022-02-25 Completed [facility]it y of Vaccine Quad IM, 00:00:00 [place] Me dical Preserv and ABX Branch Free 6 MO-64 YRS Influenza Virus 2022-02-25 Completed [facility]it y of Vaccine Quad IM, 00:00:00 [place] Me dical Preserv and ABX Branch Free 6 MO-64 YRS Influenza Virus 2022-02-25 Completed [facility]it y of Vaccine Quad IM, 00:00:00 [place] Me dical Preserv and ABX Branch Free 6 MO-64 YRS Influenza Virus 2022-02-25 Completed Universit y of Vaccine Quad IM, 00:00:00 [place] Me dical Preserv and ABX Branch Free 6 MO-64 YRS Influenza Virus 2022-02-25 Completed [facility]it y of Vaccine Quad IM, 00:00:00 [place] Me dical Preserv and ABX Branch Free 6 MO-64 YRS Influenza Virus 2022-02-25 Completed Universit y of Vaccine Quad IM, 00:00:00 [place] Me dical Preserv and ABX Branch Free 6 MO-64 YRS Influenza Virus 2022-02-25 Completed Universit y of Vaccine Quad IM, 00:00:00 [place] Me dical Preserv and ABX Branch Free 6 MO-64 YRS Influenza Virus 2022-02-25 Completed Universit y of Vaccine Quad IM, 00:00:00 [place] Me dical Preserv and ABX Branch Free 6 MO-64 YRS Influenza Virus 2022-02-25 Completed Universit y of Vaccine Quad IM, 00:00:00 [place] Me dical Preserv and ABX Branch Free 6 MO-64 YRS Influenza Virus 2022-02-25 Completed Universit y of Vaccine Quad IM, 00:00:00 [place] Me dical Preserv and ABX Branch Free 6 MO-64 YRS Influenza Virus 2022-02-25 Completed [facility]it y of Vaccine Quad IM, 00:00:00 [place] Me dical Preserv and ABX Branch Free 6 MO-64 YRS Influenza Virus 2022-02-25 Completed Universit y of Vaccine Quad IM, 00:00:00 [place] Me dical Preserv and ABX Branch Free 6 MO-64 YRS Influenza Virus 2022-02-25 Completed [facility]it y of Vaccine Quad IM, 00:00:00 [place] Me dical Preserv and ABX Branch Free 6 MO-64 YRS Influenza Virus 2022-02-25 Completed Universit y of Vaccine Quad IM, 00:00:00 [place] Me dical Preserv and ABX Branch Free 6 MO-64 YRS Influenza Virus 2022-02-25 Completed Universit y of Vaccine Quad IM, 00:00:00 [place] Me dical Preserv and ABX Branch Free 6 MO-64 YRS Influenza Virus 2022-02-25 Completed Universit y of Vaccine Quad IM, 00:00:00 [place] Me dical Preserv and ABX Branch Free 6 MO-64 YRS Influenza Virus 2022-02-25 Completed Universit y of Vaccine Quad IM, 00:00:00 [place] Me dical Preserv and ABX Branch Free 6 MO-64 YRS Influenza Virus 2022-02-25 Completed Universit y of Vaccine Quad IM, 00:00:00 [place] Me dical Preserv and ABX Branch Free 6 MO-64 YRS Influenza Virus 2022-02-25 Completed [facility]it y of Vaccine Quad IM, 00:00:00 [place] Me dical Preserv and ABX Branch Free 6 MO-64 YRS Influenza Virus 2022-02-25 Completed Universit y of Vaccine Quad IM, 00:00:00 [place] Me dical Preserv and ABX Branch Free 6 MO-64 YRS Influenza Virus 2022-02-25 Completed Universit y of Vaccine Quad IM, 00:00:00 [place] Me dical Preserv and ABX Branch Free 6 MO-64 YRS Influenza Virus 2022-02-25 Completed Universit y of Vaccine Quad IM, 00:00:00 [place] Me dical Preserv and ABX Branch Free 6 MO-64 YRS Influenza Virus 2022-02-25 Completed [facility]it y of Vaccine Quad IM, 00:00:00 [place] Me dical Preserv and ABX Branch Free 6 MO-64 YRS Influenza Virus 2022-02-25 Completed Universit y of Vaccine Quad IM, 00:00:00 [place] Me dical Preserv and ABX Branch Free 6 MO-64 YRS Influenza Virus 2022-02-25 Completed Universit y of Vaccine Quad IM, 00:00:00 [place] Me dical Preserv and ABX Branch Free 6 MO-64 YRS Influenza Virus 2022-02-25 Completed Universit y of Vaccine Quad IM, 00:00:00 [place] Me dical Preserv and ABX Branch Free 6 MO-64 YRS Influenza Virus 2022-02-25 Completed Universit y of Vaccine Quad IM, 00:00:00 [place] Me dical Preserv and ABX Branch Free 6 MO-64 YRS Influenza Virus 2022-02-25 Completed Universit y of Vaccine Quad IM, 00:00:00 [place] Me dical Preserv and ABX Branch Free 6 MO-64 YRS Influenza Virus 2022-02-25 Completed [facility]it y of Vaccine Quad IM, 00:00:00 [place] Me dical Preserv and ABX Branch Free 6 MO-64 YRS Influenza Virus 2022-02-25 Completed Universit y of Vaccine Quad IM, 00:00:00 [place] Me dical Preserv and ABX Branch Free 6 MO-64 YRS Influenza Virus 2022-02-25 Completed Universit y of Vaccine Quad IM, 00:00:00 [place] Me dical Preserv and ABX Branch Free 6 MO-64 YRS Influenza Virus 2021-05-28 Completed Universit y of Vaccine Quad IM, 00:00:00 [place] Me dical Preserv and ABX Branch Free 6 MO-64 YRS Influenza Virus 2021-05-28 Completed Universit y of Vaccine Quad IM, 00:00:00 [place] Me dical Preserv and ABX Branch Free 6 MO-64 YRS Influenza Virus 2021-05-28 Completed Universit y of Vaccine Quad IM, 00:00:00 [place] Me dical Preserv and ABX Branch Free 6 MO-64 YRS Influenza Virus 2021-05-28 Completed Universit y of Vaccine Quad IM, 00:00:00 [place] Me dical Preserv and ABX Branch Free 6 MO-64 YRS Influenza Virus 2021-05-28 Completed Universit y of Vaccine Quad IM, 00:00:00 [place] Me dical Preserv and ABX Branch Free 6 MO-64 YRS Influenza Virus 2021-05-28 Completed Universit y of Vaccine Quad IM, 00:00:00 [place] Me dical Preserv and ABX Branch Free 6 MO-64 YRS Influenza Virus 2021-05-28 Completed Universit y of Vaccine Quad IM, 00:00:00 [place] Me dical Preserv and ABX Branch Free 6 MO-64 YRS Influenza Virus 2021-05-28 Completed Universit y of Vaccine Quad IM, 00:00:00 [place] Me dical Preserv and ABX Branch Free 6 MO-64 YRS Influenza Virus 2021-05-28 Completed Universit y of Vaccine Quad IM, 00:00:00 [place] Me dical Preserv and ABX Branch Free 6 MO-64 YRS Influenza Virus 2021-05-28 Completed Universit y of Vaccine Quad IM, 00:00:00 [place] Me dical Preserv and ABX Branch Free 6 MO-64 YRS Influenza Virus 2021-05-28 Completed Universit y of Vaccine Quad IM, 00:00:00 [place] Me dical Preserv and ABX Branch Free 6 MO-64 YRS Influenza Virus 2021-05-28 Completed Universit y of Vaccine Quad IM, 00:00:00 [place] Me dical Preserv and ABX Branch Free 6 MO-64 YRS Influenza Virus 2021-05-28 Completed Universit y of Vaccine Quad IM, 00:00:00 [place] Me dical Preserv and ABX Branch Free 6 MO-64 YRS Influenza Virus 2021-05-28 Completed Universit y of Vaccine Quad IM, 00:00:00 [place] Me dical Preserv and ABX Branch Free 6 MO-64 YRS Influenza Virus 2021-05-28 Completed Universit y of Vaccine Quad IM, 00:00:00 [place] Me dical Preserv and ABX Branch Free 6 MO-64 YRS Influenza Virus 2021-05-28 Completed Universit y of Vaccine Quad IM, 00:00:00 [place] Me dical Preserv and ABX Branch Free 6 MO-64 YRS Influenza Virus 2021-05-28 Completed Universit y of Vaccine Quad IM, 00:00:00 [place] Me dical Preserv and ABX Branch Free 6 MO-64 YRS Influenza Virus 2021-05-28 Completed Universit y of Vaccine Quad IM, 00:00:00 [place] Me dical Preserv and ABX Branch Free 6 MO-64 YRS Influenza Virus 2021-05-28 Completed Universit y of Vaccine Quad IM, 00:00:00 [place] Me dical Preserv and ABX Branch Free 6 MO-64 YRS Influenza Virus 2021-05-28 Completed Universit y of Vaccine Quad IM, 00:00:00 [place] Me dical Preserv and ABX Branch Free 6 MO-64 YRS Influenza Virus 2021-05-28 Completed Universit y of Vaccine Quad IM, 00:00:00 [place] Me dical Preserv and ABX Branch Free 6 MO-64 YRS Influenza Virus 2021-05-28 Completed Universit y of Vaccine Quad IM, 00:00:00 [place] Me dical Preserv and ABX Branch Free 6 MO-64 YRS Influenza Virus 2021-05-28 Completed Universit y of Vaccine Quad IM, 00:00:00 [place] Me dical Preserv and ABX Branch Free 6 MO-64 YRS Influenza Virus 2021-05-28 Completed Universit y of Vaccine Quad IM, 00:00:00 [place] Me dical Preserv and ABX Branch Free 6 MO-64 YRS Influenza Virus 2021-05-28 Completed Universit y of Vaccine Quad IM, 00:00:00 [place] Me dical Preserv and ABX Branch Free 6 MO-64 YRS Influenza Virus 2021-05-28 Completed Universit y of Vaccine Quad IM, 00:00:00 [place] Me dical Preserv and ABX Branch Free 6 MO-64 YRS Influenza Virus 2021-05-28 Completed Universit y of Vaccine Quad IM, 00:00:00 [place] Me dical Preserv and ABX Branch Free 6 MO-64 YRS Influenza Virus 2021-05-28 Completed Universit y of Vaccine Quad IM, 00:00:00 [place] Me dical Preserv and ABX Branch Free 6 MO-64 YRS Influenza Virus 2021-05-28 Completed Universit y of Vaccine Quad IM, 00:00:00 [place] Me dical Preserv and ABX Branch Free 6 MO-64 YRS Influenza Virus 2021-05-28 Completed Universit y of Vaccine Quad IM, 00:00:00 [place] Me dical Preserv and ABX Branch Free 6 MO-64 YRS Influenza Virus 2021-05-28 Completed Universit y of Vaccine Quad IM, 00:00:00 [place] Me dical Preserv and ABX Branch Free 6 MO-64 YRS Influenza Virus 2021-05-28 Completed Universit y of Vaccine Quad IM, 00:00:00 [place] Me dical Preserv and ABX Branch Free 6 MO-64 YRS Influenza Virus 2021-05-28 Completed Universit y of Vaccine Quad IM, 00:00:00 [place] Me dical Preserv and ABX Branch Free 6 MO-64 YRS Influenza Virus 2021-05-28 Completed Universit y of Vaccine Quad IM, 00:00:00 [place] Me dical Preserv and ABX Branch Free 6 MO-64 YRS Influenza Virus 2021-05-28 Completed Universit y of Vaccine Quad IM, 00:00:00 [place] Me dical Preserv and ABX Branch Free 6 MO-64 YRS Influenza Virus 2021-05-28 Completed Universit y of Vaccine Quad IM, 00:00:00 [place] Me dical Preserv and ABX Branch Free 6 MO-64 YRS Influenza Virus 2021-05-28 Completed [facility]it y of Vaccine Quad IM, 00:00:00 [place] Me dical Preserv and ABX Branch Free 6 MO-64 YRS Influenza Virus 2021-05-28 Completed Universit y of Vaccine Quad IM, 00:00:00 [place] Me dical Preserv and ABX Branch Free 6 MO-64 YRS Influenza Virus 2021-05-28 Completed Universit y of Vaccine Quad IM, 00:00:00 [place] Me dical Preserv and ABX Branch Free 6 MO-64 YRS Influenza Virus 2021-05-28 Completed Universit y of Vaccine Quad IM, 00:00:00 [place] Me dical Preserv and ABX Branch Free 6 MO-64 YRS Influenza Virus 2021-05-28 Completed Universit y of Vaccine Quad IM, 00:00:00 [place] Me dical Preserv and ABX Branch Free 6 MO-64 YRS Influenza Virus 2021-05-28 Completed Universit y of Vaccine Quad IM, 00:00:00 [place] Me dical Preserv and ABX Branch Free 6 MO-64 YRS Influenza Virus 2021-05-28 Completed Universit y of Vaccine Quad IM, 00:00:00 [place] Me dical Preserv and ABX Branch Free 6 MO-64 YRS Influenza Virus 2021-05-28 Completed Universit y of Vaccine Quad IM, 00:00:00 [place] Me dical Preserv and ABX Branch Free 6 MO-64 YRS Influenza Virus 2021-05-28 Completed Universit y of Vaccine Quad IM, 00:00:00 [place] Me dical Preserv and ABX Branch Free 6 MO-64 YRS Influenza Virus 2021-05-28 Completed [facility]it y of Vaccine Quad IM, 00:00:00 [place] Me dical Preserv and ABX Branch Free 6 MO-64 YRS Influenza Virus 2021-05-28 Completed [facility]it y of Vaccine Quad IM, 00:00:00 [place] Me dical Preserv and ABX Branch Free 6 MO-64 YRS Influenza Virus 2021-05-28 Completed [facility]it y of Vaccine Quad IM, 00:00:00 [place] Me dical Preserv and ABX Branch Free 6 MO-64 YRS Influenza Virus 2021-05-28 Completed [facility]it y of Vaccine Quad IM, 00:00:00 [place] Me dical Preserv and ABX Branch Free 6 MO-64 YRS Influenza Virus 2021-05-28 Completed [facility]it y of Vaccine Quad IM, 00:00:00 [place] Me dical Preserv and ABX Branch Free 6 MO-64 YRS Influenza Virus 2021-05-28 Completed [facility]it y of Vaccine Quad IM, 00:00:00 [place] Me dical Preserv and ABX Branch Free 6 MO-64 YRS Influenza Virus 2021-05-28 Completed [facility]it y of Vaccine Quad IM, 00:00:00 [place] Me dical Preserv and ABX Branch Free 6 MO-64 YRS Influenza Virus 2021-05-28 Completed [facility]it y of Vaccine Quad IM, 00:00:00 [place] Me dical Preserv and ABX Branch Free 6 MO-64 YRS Influenza Virus 2021-05-28 Completed [facility] y of Vaccine Quad IM, 00:00:00 [place] Me dical Preserv and ABX Branch Free 6 MO-64 YRS Influenza Virus 2021-05-28 Completed [facility]it y of Vaccine Quad IM, 00:00:00 [place] Me dical Preserv and ABX Branch Free 6 MO-64 YRS Influenza Virus 2021-05-28 Completed [facility]it y of Vaccine Quad IM, 00:00:00 [place] Me dical Preserv and ABX Branch Free 6 MO-64 YRS Influenza Virus 2021-05-28 Completed [facility]it y of Vaccine Quad IM, 00:00:00 [place] Me dical Preserv and ABX Branch Free 6 MO-64 YRS Influenza Virus 2021-05-28 Completed [facility]it y of Vaccine Quad IM, 00:00:00 [place] Me dical Preserv and ABX Branch Free 6 MO-64 YRS Influenza Virus 2021-05-28 Completed [facility]it y of Vaccine Quad IM, 00:00:00 [place] Me dical Preserv and ABX Branch Free 6 MO-64 YRS Influenza Virus 2021-05-28 Completed [facility]it y of Vaccine Quad IM, 00:00:00 [place] Me dical Preserv and ABX Branch Free 6 MO-64 YRS Influenza Virus 2021-05-28 Completed [facility]it y of Vaccine Quad IM, 00:00:00 [place] Me dical Preserv and ABX Branch Free 6 MO-64 YRS Influenza Virus 2021-05-28 Completed [facility]it y of Vaccine Quad IM, 00:00:00 [place] Me dical Preserv and ABX Branch Free 6 MO-64 YRS Influenza Virus 2021-05-28 Completed [facility]it y of Vaccine Quad IM, 00:00:00 [place] Me dical Preserv and ABX Branch Free 6 MO-64 YRS Influenza Virus 2021-05-28 Completed [facility]it y of Vaccine Quad IM, 00:00:00 [place] Me dical Preserv and ABX Branch Free 6 MO-64 YRS Influenza Virus 2021-05-28 Completed [facility]it y of Vaccine Quad IM, 00:00:00 [place] [facility] Preserv and ABX Branch Free 6 MO-64 YRS Influenza Virus 2021-05-28 Completed [facility]it y of Vaccine Quad IM, 00:00:00 [place] Me dical Preserv and ABX Branch Free 6 MO-64 YRS Influenza Virus 2021-05-28 Completed [facility] y of Vaccine Quad IM, 00:00:00 [place] Me dical Preserv and ABX Branch Free 6 MO-64 YRS Influenza Virus 2021-05-28 Completed [facility] y of Vaccine Quad IM, 00:00:00 [place] Me dical Preserv and ABX Branch Free 6 MO-64 YRS TDAP 2021-04-16 Completed University of 00:00:00 [facility] TDAP 2021-04-16 Completed University of 00:00:00 [facility] TDAP 2021-04-16 Completed University of 00:00:00 [facility] TDAP 2021-04-16 Completed University of 00:00:00 [facility] TDAP 2021-04-16 Completed [facility] 00:[facility]00 [facility] [facility]16 Com[facility] 00:00:00 [facility] TDAP 2021-04-16 Completed [facility] 00:00:00 [facility] TDAP 2021-04-16 Completed [facility] 00:00:00 [facility] TDAP 2021-04-16 Completed [facility] 00:00:00 [facility] TDAP 2021-04-16 Completed [facility] 00:00:00 [facility] TDAP 2021-04-16 Completed [facility] 00:00:00 [facility] TDAP 2021-04-16 Completed [facility] 00[facility]00:00 [facility] TDAP 2021-04-16 Completed [facility] 00:00:00 [facility] TDAP 2021-04-16 Completed [facility] 00:00:00 [facility] TDAP 2021-04-16 Completed [facility] 00:00:00 [facility] TDAP 2021-04-16 Completed [facility] 00:00:00 [facility] TDAP 2021-04-16 Completed [facility] 00:00:00 [facility] TDAP 2021-04-16 Completed [facility] 00:00:00 [facility] TDAP 2021-04-16 Completed [facility] 00:00:00 [facility] TDAP 2021-04-16 Completed [facility] 00:00:00 [facility] TDAP 2021-04-16 Completed [facility] 00:00:00 [facility] TDAP 2021-04-16 Completed [facility] 00:00:00 [facility] TDAP 2021-04-16 Completed [facility] 00:00:00 [facility] TDAP 2021-04-16 Completed [facility] 00:00:00 [facility] TDAP 2021-04-16 Completed [facility] 00:00:00 [facility] TDAP 2021-04-16 Completed [facility] 00:00:00 [facility] TDAP 2021-04-16 Completed [facility] 00:00:00 [facility] TDAP 2021-04-16 Completed [facility] 00:00:00 [facility] TDAP 2021-04-16 Completed [facility] 00:00:00 [facility] TDAP 2021-04-16 Completed [facility] 00:00:00 [facility] TDAP 2021-04-16 Completed [facility] 00:00:00 [facility] TDAP 2021-04-16 Completed [facility] 00:00:00 [facility] TDAP 2021-04-16 Completed [facility] 00:00:00 [facility] TDAP 2021-04-16 Completed [facility] 00:00:00 [facility] TDAP 2021-04-16 Completed [facility] 00:00:00 [facility] TDAP 2021-04-16 Completed [facility] 00:00:00 [facility] TDAP 2021-04-16 Completed [facility] 00:00:00 [facility] TDAP 2021-04-16 Completed [facility] 00:00:00 [facility] TDAP 2021-04-16 Completed [facility] 00:00:00 [facility] TDAP 2021-04-16 Completed [facility] 00:00:00 [facility] TDAP 2021-04-16 Completed [facility] 00:00:00 [facility] TDAP 2021-04-16 Completed [facility] 00:00:00 [facility] TDAP 2021-04-16 Completed [facility] 00:00:00 [facility] TDAP 2021-04-16 Completed [facility] 00:00:00 [facility] TDAP 2021-04-16 Completed [facility] 00:00:00 [facility] TDAP 2021-04-16 Completed [facility] 00:00:00 [facility] TDAP 2021-04-16 Completed [facility] 00:00:00 [facility] TDAP 2021-04-16 Completed [facility] 00:00:00 [facility] TDAP 2021-04-16 Completed [facility] 00:00:00 [facility] TDAP 2021-04-16 Completed [facility] 00:00:00 [facility] TDAP 2021-04-16 Completed [facility] 00:00:00 [facility] TDAP 2021-04-16 Completed [facility] 00:00:00 [facility] TDAP 2021-04-16 Completed [facility] 00:00:00 [facility] TDAP 2021-04-16 Completed [facility] 00:00:00 [facility] TDAP 2021-04-16 Completed [facility] 00:00:00 [facility] TDAP 2021-04-16 Completed [facility] 00:00:00 [facility] TDAP 2021-04-16 Completed [facility] 00[facility]00:00 [facility] TDAP 2021-04-16 Completed [facility] 00:00:00 [facility] TDAP 2021-04-16 Completed [facility] 00[facility]00:00 [facility] TDAP 2021-04-16 Completed [facility] 00[facility]00:00 [facility] TDAP 2021-04-16 Completed [facility] 00[facility]00:00 [facility] TDAP 2021-04-16 Completed [facility] 00:00:00 [facility] TDAP 2021-04-16 Completed [facility] 00:00:00 [facility] TDAP 2021-04-16 Completed [facility] 00:00:00 [facility] TDAP 2021-04-16 Completed [facility] 00:00:00 [facility] TDAP 2021-04-16 Completed [facility] 00:00:00 [facility] TDAP 2021-04-16 Completed [facility] 00:00:00 [facility] Influenza Virus 2019-01-15 Completed [facility] .5 mL 00:00:00 [facility] 6+ MO [facility] Influenza Virus 2019-01-15 Completed [facility] .5 mL 00:00:00 [facility] 6[facility] MO [facility] Influenza Virus 2019-01-15 Completed [facility] .5 mL 00:00:00 [facility] 6+ MO [facility] Influenza Virus 2019-01-15 Completed [facility] .5 mL 00:00:00 [facility] 6+ MO [facility] Influenza Virus 2019-01-15 Completed [facility] .5 mL 00:00:00 [facility] 6+ MO [facility] Influenza Virus 2019-01-15 Completed [facility] .5 mL 00:00:00 [facility] 6[facility] MO [facility] Influenza Virus 2019-01-15 Completed [facility]5 mL 00:00:00 [facility] 6[facility] Influenza Virus 2019-01-15 Completed [facility] .5 mL 00:00:00 [facility] 6+ MO [facility] Influenza Virus 2019-01-15 Completed [facility] .5 mL 00:00:00 [facility] 6+ MO [facility] Influenza Virus 2019-01-15 Completed [facility] .5 mL 00:00:00 [facility] 6+ MO [facility] Influenza Virus 2019-01-15 Completed [facility] .5 mL 00:00:00 [facility] 6+ MO [facility] Influenza Virus 2019-01-15 Completed [facility] .5 mL 00:00:00 [facility] 6+ MO [facility] Influenza Virus 2019-01-15 Completed [facility] .5 mL 00:00:00 [facility] 6+ MO [facility] Influenza Virus 2019-01-15 Completed [facility]5 mL 00:00:00 [facility] 6[facility] MO [facility] Influenza Virus 2019-01-15 Completed [facility]5 mL 00:00:00 [facility] 6[facility] Influenza Virus 2019-01-15 Completed [facility]5 mL 00:00:00 [facility] 6[facility] Influenza Virus 2019-01-15 Completed [facility]5 mL 00:00:00 [facility] 6+ MO [facility] Influenza Virus 2019-01-15 Completed [facility]5 mL 00:00:00 [facility] 6[facility] Influenza Virus 2019-01-15 Completed [facility] .5 mL 00:00:00 [facility] 6[facility] MO [facility] Influenza Virus 2019-01-15 Completed [facility]5 mL 00:00:00 [facility] 6[facility] MO [facility] Influenza Virus 2019-01-15 Completed [facility] .5 mL 00:00:00 [facility] 6[facility] MO [facility] Influenza Virus 2019-01-15 Completed [facility]5 mL 00:00:00 [facility] 6[facility] Influenza Virus 2019-01-15 Completed [facility]5 mL 00:00:00 [facility] 6[facility] Influenza Virus 2019-01-15 Completed [facility]5 mL 00:00:00 [facility] 6[facility] Influenza Virus 2019-01-15 Completed [facility] .5 mL 00:00:00 [facility] 6+ MO [facility] Influenza Virus 2019-01-15 Completed [facility] .5 mL 00:00:00 [facility] 6+ MO [facility] Influenza Virus 2019-01-15 Completed [facility] .5 mL 00:00:00 [facility] 6+ MO [facility] Influenza Virus 2019-01-15 Completed [facility] .5 mL 00:00:00 [facility] 6+ MO [facility] Influenza Virus 2019-01-15 Completed [facility] .5 mL 00:00:00 [facility] 6+ MO [facility] Influenza Virus 2019-01-15 Completed [facility] .5 mL 00:00:00 [facility] 6+ MO [facility] Influenza Virus 2019-01-15 Completed [facility] .5 mL 00:00:00 [facility] 6[facility] MO [facility] Influenza Virus 2019-01-15 Completed [facility] .5 mL 00:00:00 [facility] 6[facility] Influenza Virus 2019-01-15 Completed [facility] .5 mL 00:00:00 [facility] 6[facility] Influenza Virus 2019-01-15 Completed [facility] .5 mL 00:00:00 [facility] 6[facility] Influenza Virus 2019-01-15 Completed [facility] .5 mL 00:00:00 [facility] 6[facility] Influenza Virus 2019-01-15 Completed [facility] .5 mL 00:00:00 [facility] 6[facility] MO [facility] Influenza Virus 2019-01-15 Completed [facility] .5 mL 00:00:00 [facility] 6[facility] MO [facility] Influenza Virus 2019-01-15 Completed [facility] .5 mL 00:00:00 [facility] 6[facility] MO [facility] Influenza Virus 2019-01-15 Completed [facility] .5 mL 00:00:00 [facility] 6[facility] MO [facility] Influenza Virus 2019-01-15 Completed [facility] .5 mL 00:00:00 [facility] 6[facility] MO [facility] Influenza Virus 2019-01-15 Completed [facility] .5 mL 00:00:00 [facility] 6[facility] MO [facility] Influenza Virus 2019-01-15 Completed [facility] .5 mL 00:00:00 [facility] 6[facility] MO [facility] Influenza Virus 2019-01-15 Completed [facility] .5 mL 00:00:00 [facility] 6+ MO [facility] Influenza Virus 2019-01-15 Completed [facility] .5 mL 00:00:00 [facility] 6[facility] MO [facility] Influenza Virus 2019-01-15 Completed [facility] .5 mL 00:00:00 [facility] 6+ MO [facility] Influenza Virus 2019-01-15 Completed [facility] .5 mL 00:00:00 [facility] 6[facility] Influenza Virus 2019-01-15 Completed [facility] .5 mL 00:00:00 [facility] 6+ MO [facility] Influenza Virus 2019-01-15 Completed [facility] .5 mL 00:00:00 [facility] 6[facility] MO [facility] Influenza Virus 2019-01-15 Completed [facility] .5 mL 00:00:00 [facility] 6[facility] MO [facility] Influenza Virus 2019-01-15 Completed [facility] .5 mL 00:00:00 [facility] 6[facility] MO [facility] Influenza Virus 2019-01-15 Completed [facility] .5 mL 00:00:00 [facility] 6[facility] MO [facility] Influenza Virus 2019-01-15 Completed [facility] .5 mL 00:00:00 [facility] 6[facility] MO [facility] Influenza Virus 2019-01-15 Completed [facility] .5 mL 00:00:00 [facility] 6[facility] MO [facility] Influenza Virus 2019-01-15 Completed [facility] .5 mL 00:00:00 [facility] 6[facility] Influenza Virus 2019-01-15 Completed [facility] .5 mL 00:00:00 [facility] 6[facility] MO [facility] Influenza Virus 2019-01-15 Completed [facility] .5 mL 00:00:00 [facility] 6+ MO [facility] Influenza Virus 2019-01-15 Completed [facility] .5 mL 00:00:00 [facility] 6[facility] MO [facility] Influenza Virus 2019-01-15 Completed [facility] .5 mL 00:00:00 [facility] 6+ MO [facility] Influenza Virus 2019-01-15 Completed [facility] .5 mL 00:00:00 [facility] 6+ MO [facility] Influenza Virus 2019-01-15 Completed [facility] .5 mL 00:00:00 [facility] 6+ MO [facility] Influenza Virus 2019-01-15 Completed [facility] .5 mL 00:00:00 [facility] 6+ MO [facility] Influenza Virus 2019-01-15 Completed [facility] .5 mL 00:00:00 [facility] 6+ MO [facility] Influenza Virus 2019-01-15 Completed [facility] .5 mL 00:00:00 [facility] 6+ MO [facility] Influenza Virus 2019-01-15 Completed [facility] .5 mL 00:00:00 [facility] 6+ MO [facility] Influenza Virus 2019-01-15 Completed [facility] .5 mL 00:00:00 [facility] 6+ MO [facility] Influenza Virus 2019-01-15 Completed [facility] .5 mL 00:00:00 [facility] 6+ MO [facility] Influenza Virus 2019-01-15 Completed [facility] .5 mL 00:00:00 [facility] 6+ MO [facility] Influenza Virus 2019-01-15 Completed [facility] .5 mL 00:00:00 [facility] 6+ MO Branch TDAP (ADACEL) 2018-11-20 Completed [facility] VACCINE 00:00:00 [facility] TDAP (ADACEL) 2018-11-20 Completed [facility] VACCINE 00:00:00 [facility] TDAP (ADACEL) 2018-11-20 Completed [facility] VACCINE 00:00:00 [facility] TDAP (ADACEL) 2018-11-20 Completed [facility] VACCINE 00:00:00 [facility] TDAP (ADACEL) 2018-11-20 Completed [facility] VACCINE 00:00:00 [facility] TDAP (ADACEL) 2018-11-20 Completed [facility] VACCINE 00:00:00 [facility] TDAP (ADACEL) 2018-11-20 Completed [facility] VACCINE 00:00:00 [facility] TDAP (ADACEL) 2018-11-20 Completed [facility] VACCINE 00:00:00 [facility] TDAP (ADACEL) 2018-11-20 Completed [facility] VACCINE 00:00:00 [facility] TDAP (ADACEL) 2018-11-20 Completed [facility] VACCINE 00:00:00 [facility] TDAP (ADACEL) 2018-11-20 Completed [facility] VACCINE 00:00:00 [facility] TDAP (ADACEL) 2018-11-20 Completed [facility] VACCINE 00:00:00 [facility] TDAP (ADACEL) 2018-11-20 Completed [facility] VACCINE 00:00:00 [facility] TDAP (ADACEL) 2018-11-20 Completed [facility] VACCINE 00:00:00 [facility] TDAP (ADACEL) 2018-11-20 Completed [facility] VACCINE 00:00:00 [facility] TDAP (ADACEL) 2018-11-20 Completed [facility] VACCINE 00:00:00 [facility] TDAP (ADACEL) 2018-11-20 Completed [facility] VACCINE 00:00:00 [facility] TDAP (ADACEL) 2018-11-20 Completed [facility] VACCINE 00:00:00 [facility] TDAP (ADACEL) 2018-11-20 Completed [facility] VACCINE 00:00:00 [facility] TDAP (ADACEL) 2018-11-20 Completed [facility] VACCINE 00:00:00 [facility] TDAP (ADACEL) 2018-11-20 Completed [facility] VACCINE 00:00:00 [facility] TDAP (ADACEL) 2018-11-20 Completed [facility] VACCINE 00:00:00 [facility] TDAP (ADACEL) 2018-11-20 Completed [facility] VACCINE 00:00:00 [facility] TDAP (ADACEL) 2018-11-20 Completed [facility] VACCINE 00:00:00 [facility] TDAP (ADACEL) 2018-11-20 Completed [facility] VACCINE 00:00:00 [facility] TDAP (ADACEL) 2018-11-20 Completed [facility] VACCINE 00:00:00 [facility] TDAP (ADACEL) 2018-11-20 Completed [facility] VACCINE 00:00:00 [facility] TDAP (ADACEL) 2018-11-20 Completed [facility] VACCINE 00:00:00 [facility] TDAP (ADACEL) 2018-11-20 Completed [facility] VACCINE 00:00:00 [facility] TDAP (ADACEL) 2018-11-20 Completed [facility] VACCINE 00:00:00 [facility] TDAP (ADACEL) 2018-11-20 Completed [facility] VACCINE 00:00:00 [facility] TDAP (ADACEL) 2018-11-20 Completed [facility] VACCINE 00:00:00 [facility] TDAP (ADACEL) 2018-11-20 Completed [facility] VACCINE 00:00:00 [facility] TDAP (ADACEL) 2018-11-20 Completed [facility] VACCINE 00:00:00 [facility] TDAP (ADACEL) 2018-11-20 Completed [facility] VACCINE 00:00:00 [facility] TDAP (ADACEL) 2018-11-20 Completed [facility] VACCINE 00:00:00 [facility] TDAP (ADACEL) 2018-11-20 Completed [facility] VACCINE 00:00:00 [facility] TDAP (ADACEL) 2018-11-20 Completed [facility] VACCINE 00:00:00 [facility] TDAP (ADACEL) 2018-11-20 Completed [facility] VACCINE 00:00:00 [facility] TDAP (ADACEL) 2018-11-20 Completed [facility] VACCINE 00:00:00 [facility] TDAP (ADACEL) 2018-11-20 Completed [facility] VACCINE 00:00:00 [facility] TDAP (ADACEL) 2018-11-20 Completed [facility] VACCINE 00:00:00 [facility] TDAP (ADACEL) 2018-11-20 Completed [facility] VACCINE 00:00:00 [facility] TDAP (ADACEL) 2018-11-20 Completed [facility] VACCINE 00:00:00 [facility] TDAP (ADACEL) 2018-11-20 Completed [facility] VACCINE 00:00:00 [facility] TDAP (ADACEL) 2018-11-20 Completed [facility] VACCINE 00:00:00 [facility] TDAP (ADACEL) 2018-11-20 Completed [facility] VACCINE 00:00:00 [facility] TDAP (ADACEL) 2018-11-20 Completed [facility] VACCINE 00:00:00 [facility] TDAP (ADACEL) 2018-11-20 Completed [facility] VACCINE 00:00:00 [facility] TDAP (ADACEL) 2018-11-20 Completed [facility] VACCINE 00:00:00 [facility] TDAP (ADACEL) 2018-11-20 Completed [facility] VACCINE 00:00:00 [facility] TDAP (ADACEL) 2018-11-20 Completed [facility] VACCINE 00:00:00 [facility] TDAP (ADACEL) 2018-11-20 Completed [facility] VACCINE 00:00:00 [facility] TDAP (ADACEL) 2018-11-20 Completed [facility] VACCINE 00:00:00 [facility] TDAP (ADACEL) 2018-11-20 Completed [facility] VACCINE 00:00:00 [facility] TDAP (ADACEL) 2018-11-20 Completed [facility] VACCINE 00:00:00 [facility] TDAP (ADACEL) 2018-11-20 Completed [facility] VACCINE 00:00:00 [facility] TDAP (ADACEL) 2018-11-20 Completed [facility] VACCINE 00:00:00 [facility] TDAP (ADACEL) 2018-11-20 Completed [facility] VACCINE 00:00:00 [facility] TDAP (ADACEL) 2018-11-20 Completed [facility] VACCINE 00:00:00 [facility] TDAP (ADACEL) 2018-11-20 Completed [facility] VACCINE 00:00:00 [facility] TDAP (ADACEL) 2018-11-20 Completed [facility] VACCINE 00:00:00 [facility] TDAP (ADACEL) 2018-11-20 Completed [facility] VACCINE 00:00:00 [facility] TDAP (ADACEL) 2018-11-20 Completed [facility] VACCINE 00:00:00 [facility] TDAP (ADACEL) 2018-11-20 Completed [facility] VACCINE 00:00:00 [facility] TDAP (ADACEL) 2018-11-20 Completed [facility] VACCINE 00:00:00 [facility] TDAP (ADACEL) 2018-11-20 Completed [facility] VACCINE 00:00:00 [facility] TDAP (ADACEL) 2018-11-20 Completed [facility] VACCINE 00:00:00 [facility] Influenza Virus 2018-07-13 Completed [facility] .5 mL 00:00:00 [facility] 6[facility] Influenza Virus 2018-07-13 Completed [facility] .5 mL 00:00:00 [facility] 6[facility] Influenza Virus 2018-07-13 Completed [facility] .5 mL 00:00:00 [facility] 6[facility] Influenza Virus 2018-07-13 Completed [facility] .5 mL 00:00:00 [facility] 6[facility] Influenza Virus 2018-07-13 Completed [facility] .5 mL 00:00:00 [facility] 6[facility] Influenza Virus 2018-07-13 Completed [facility] .5 mL 00:00:00 [facility] 6[facility] Influenza Virus 2018-07-13 Completed [facility] .5 mL 00:00:00 [facility] 6[facility] Influenza Virus 2018-07-13 Completed [facility] .5 mL 00:00:00 [facility] 6[facility] Influenza Virus 2018-07-13 Completed [facility] .5 mL 00:00:00 [facility] 6[facility] Influenza Virus 2018-07-13 Completed [facility] .5 mL 00:00:00 [facility] 6[facility] Influenza Virus 2018-07-13 Completed [facility] .5 mL 00:00:00 [facility] 6[facility] Influenza Virus 2018-07-13 Completed [facility] .5 mL 00:00:00 [facility] 6[facility] Influenza Virus 2018-07-13 Completed [facility] .5 mL 00:00:00 [facility] 6[facility] Influenza Virus 2018-07-13 Completed [facility] .5 mL 00:00:00 [facility] 6[facility] Influenza Virus 2018-07-13 Completed [facility] .5 mL 00:00:00 [facility] Influenza Virus 2018-07-13 Completed [facility] .5 mL 00:00:00 [facility] 6[facility] Influenza Virus 2018-07-13 Completed [facility] .5 mL 00:00:00 [facility] 6[facility] Influenza Virus 2018-07-13 Completed [facility] .5 mL 00:00:00 [facility] Influenza Virus 2018-07-13 Completed [facility] .5 mL 00:00:00 [facility] 6[facility] Influenza Virus 2018-07-13 Completed [facility] .5 mL 00:00:00 [facility] 6[facility] Influenza Virus 2018-07-13 Completed [facility] .5 mL 00:00:00 [facility] 6[facility] Influenza Virus 2018-07-13 Completed [facility] .5 mL 00:00:00 [facility] 6[facility] Influenza Virus 2018-07-13 Completed [facility] .5 mL 00:00:00 [facility] 6[facility] Influenza Virus 2018-07-13 Completed [facility] .5 mL 00:00:00 [facility] 6+ MO [facility] Influenza Virus 2018-07-13 Completed [facility] .5 mL 00:00:00 [facility] 6+ MO [facility] Influenza Virus 2018-07-13 Completed [facility] .5 mL 00:00:00 [facility] 6[facility] MO [facility] Influenza Virus 2018-07-13 Completed [facility] .5 mL 00:00:00 [facility] 6[facility] MO [facility] Influenza Virus 2018-07-13 Completed [facility] .5 mL 00:00:00 [facility] 6+ MO [facility] Influenza Virus 2018-07-13 Completed [facility] .5 mL 00:00:00 [facility] 6+ MO [facility] Influenza Virus 2018-07-13 Completed [facility] .5 mL 00:00:00 [facility] 6[facility] Influenza Virus 2018-07-13 Completed [facility] .5 mL 00:00:00 [facility] Influenza Virus 2018-07-13 Completed [facility] .5 mL 00:00:00 [facility] Influenza Virus 2018-07-13 Completed [facility] .5 mL 00:00:00 [facility] Influenza Virus 2018-07-13 Completed [facility] .5 mL 00:00:00 [facility] Influenza Virus 2018-07-13 Completed [facility] .5 mL 00:00:00 [facility] Influenza Virus 2018-07-13 Completed [facility] .5 mL 00:00:00 [facility] 6[facility] Influenza Virus 2018-07-13 Completed [facility] .5 mL 00:00:00 [facility] 6[facility] Influenza Virus 2018-07-13 Completed [facility] .5 mL 00:00:00 [facility] Influenza Virus 2018-07-13 Completed [facility] .5 mL 00:00:00 [facility] 6[facility] Influenza Virus 2018-07-13 Completed [facility] .5 mL 00:00:00 [facility] Influenza Virus 2018-07-13 Completed [facility] .5 mL 00:00:00 [facility] 6[facility] MO [facility] Influenza Virus 2018-07-13 Completed [facility] .5 mL 00:00:00 [facility] 6[facility] MO [facility] Influenza Virus 2018-07-13 Completed [facility] .5 mL 00:00:00 [facility] Influenza Virus 2018-07-13 Completed [facility] y of [facility] .5 mL 00:00:00 [facility] 6+ [facility] Influenza Virus 2018-07-13 Completed Universit y [facility] .5 mL 00:00:00 [facility] 6+ [facility] Influenza Virus 2018-07-13 Completed Universit y of [facility] .5 mL 00:00:00 [facility] 6+ MO Branch Influenza Virus 2018-07-13 Completed Universit y of [facility] .5 mL 00:00:00 [facility] 6+ MO [facility] Influenza Virus 2018-07-13 Completed [facility]it y of [facility] .5 mL 00:00:00 [facility] 6+ [facility] Influenza Virus 2018-07-13 Completed [facility]it y of [facility] .5 mL 00:00:00 [facility] 6+ [facility] Influenza Virus 2018-07-13 Completed [facility]it y of [facility] .5 mL 00:00:00 [facility] 6+ [facility] Influenza Virus 2018-07-13 Completed [facility]it y of [facility] .5 mL 00:00:00 [facility] 6+ [facility] Influenza Virus 2018-07-13 Completed [facility]it y of [facility] .5 mL 00:00:00 [facility] 6+ [facility] Influenza Virus 2018-07-13 Completed [facility]it y [facility] .5 mL 00:00:00 [facility] 6[facility] Influenza Virus 2018-07-13 Completed [facility]it y of [facility] .5 mL 00:00:00 [facility] 6+ [facility] Influenza Virus 2018-07-13 Completed [facility]it y of [facility] .5 mL 00:00:00 [facility] 6+ [facility] Influenza Virus 2018-07-13 Completed [facility]it y of [facility] .5 mL 00:00:00 [facility] 6+ [facility] Influenza Virus 2018-07-13 Completed [facility]it y of [facility] .5 mL 00:00:00 [facility] 6+ [facility] Influenza Virus 2018-07-13 Completed [facility]it y [facility] .5 mL 00:00:00 [facility] 6+ MO [facility] Influenza Virus 2018-07-13 Completed [facility]it y of [facility] .5 mL 00:00:00 [facility] 6+ MO [facility] Influenza Virus 2018-07-13 Completed [facility]it y of [facility] .5 mL 00:00:00 [facility] 6+ [facility] Influenza Virus 2018-07-13 Completed [facility]it y of [facility] .5 mL 00:00:00 [facility] 6+ MO [facility] Influenza Virus 2018-07-13 Completed [facility]it y of [facility] .5 mL 00:00:00 [facility] 6+ MO [facility] Influenza Virus 2018-07-13 Completed [facility]it y of [facility] .5 mL 00:00:00 [facility] 6+ MO [facility] Influenza Virus 2018-07-13 Completed [facility]it y of [facility] .5 mL 00:00:00 [facility] 6+ MO [facility] Influenza Virus 2018-07-13 Completed [facility]it y of [facility] .5 mL 00:00:00 [facility] 6+ [facility] Influenza Virus 2018-07-13 Completed [facility]it y [facility] .5 mL 00:00:00 [facility] 6+ MO [facility] Influenza Virus 2018-07-13 Completed [facility]it y of [facility] .5 mL 00:00:00 [facility] 6+ MO [facility] Influenza Virus 2018-07-13 Completed [facility]it y of [facility] .5 mL 00:00:00 [facility] 6+ [facility] TDAP 2015-06-10 Completed University of 00:00:00 [facility] TDAP 2015-06-10 Completed University of 00:00:00 [facility] TDAP 2015-06-10 Completed University of 00:00:00 [facility] TDAP 2015-06-10 Completed University of 00:00:00 [facility] TDAP 2015-06-10 Completed University of 00:00:00 [facility] TDAP 2015-06-10 Completed University of 00:00:00 [facility] TDAP 2015-06-10 Completed University of 00:00:00 [facility] TDAP 2015-06-10 Completed University of 00:00:00 [facility] TDAP 2015-06-10 Completed University of 00:00:00 [facility] TDAP 2015-06-10 Completed University of 00:00:00 [facility] TDAP 2015-06-10 Completed University of 00:00:00 [facility] TDAP 2015-06-10 Completed University of 00:00:00 [facility] TDAP 2015-06-10 Completed University of 00:00:00 [facility] TDAP 2015-06-10 Completed University of 00:00:00 [facility] TDAP 2015-06-10 Completed University of 00:00:00 [facility] TDAP 2015-06-10 Completed University of 00:00:00 [facility] TDAP 2015-06-10 Completed University of 00:00:00 [facility] TDAP 2015-06-10 Completed University of 00:00:00 [facility] TDAP 2015-06-10 Completed University of 00:00:00 [facility] TDAP 2015-06-10 Completed University of 00:00:00 [facility] TDAP 2015-06-10 Completed University of 00:00:00 [facility] TDAP 2015-06-10 Completed University of 00:00:00 [facility] TDAP 2015-06-10 Completed University of 00:00:00 [facility] TDAP 2015-06-10 Completed University of 00:00:00 [facility] TDAP 2015-06-10 Completed University of 00:00:00 [facility] TDAP 2015-06-10 Completed University of 00:00:00 [facility] TDAP 2015-06-10 Completed University of 00:00:00 [facility] TDAP 2015-06-10 Completed University of 00:00:00 [facility] TDAP 2015-06-10 Completed University of 00:00:00 [facility] TDAP 2015-06-10 Completed University of 00:00:00 [facility] TDAP 2015-06-10 Completed University of 00:00:00 [facility] TDAP 2015-06-10 Completed University of 00:00:00 [facility] TDAP 2015-06-10 Completed University of 00:00:00 [facility] TDAP 2015-06-10 Completed University of 00:00:00 [facility] TDAP 2015-06-10 Completed [facility] of 00:00:00 [facility] TDAP 2015-06-10 Completed University of 00:00:00 [facility] TDAP 2015-06-10 Completed [facility] of 00:00:00 [facility] TDAP 2015-06-10 Completed University of 00:00:00 [facility] TDAP 2015-06-10 Completed [facility] 00:00:00 [facility] TDAP 2015-06-10 Completed University of 00:00:00 [facility] TDAP 2015-06-10 Completed [facility] 00:00:00 [facility] TDAP 2015-06-10 Completed [facility] 00:00:00 [facility] TDAP 2015-06-10 Completed [facility] of 00:00:00 [facility] TDAP 2015-06-10 Completed [facility] of 00:00:00 [facility] TDAP 2015-06-10 Completed [facility] of 00:00:00 [facility] TDAP 2015-06-10 Completed [facility] of 00:00:00 [facility] TDAP 2015-06-10 Completed [facility] of 00:00:00 [facility] TDAP 2015-06-10 Completed [facility] of 00:00:00 [facility] TDAP 2015-06-10 Completed [facility] of 00:00:00 [facility] TDAP 2015-06-10 Completed [facility] of 00:00:00 [facility] TDAP 2015-06-10 Completed [facility] of 00:00:00 [facility] TDAP 2015-06-10 Completed [facility] of 00:00:00 [facility] TDAP 2015-06-10 Completed [facility] of 00:00:00 [facility] TDAP 2015-06-10 Completed [facility] of 00:00:00 [facility] TDAP 2015-06-10 Completed [facility] of 00:00:00 [facility] TDAP 2015-06-10 Completed [facility] of 00:00:00 [facility] TDAP 2015-06-10 Completed [facility] of 00:00:00 [facility] TDAP 2015-06-10 Completed [facility] of 00:00:00 [facility] TDAP 2015-06-10 Completed University of 00:00:00 [facility] TDAP 2015-06-10 Completed University of 00:00:00 [facility] TDAP 2015-06-10 Completed [facility] of 00:00:00 [facility] TDAP 2015-06-10 Completed University of 00:00:00 [facility] TDAP 2015-06-10 Completed University of 00:00:00 [facility] TDAP 2015-06-10 Completed University of 00:00:00 [facility] TDAP 2015-06-10 Completed University of 00:00:00 [facility] TDAP 2015-06-10 Completed University of 00:00:00 [facility] TDAP 2015-06-10 Completed University of 00:00:00 [facility] TDAP 2015-06-10 Completed University of 00:00:00 [facility] Td 2005-04-18 Completed University of 00:00:00 [facility] Td 2005-04-18 Completed University of 00:00:00 [facility] Td 2005-04-18 Completed University of 00:00:00 [facility] Td 2005-04-18 Completed University of 00:00:00 [facility] Td 2005-04-18 Completed University of 00:00:00 [facility] Td 2005-04-18 Completed University of 00:00:00 [facility] Td 2005-04-18 Completed University of 00:00:00 [facility] Td 2005-04-18 Completed University of 00:00:00 [facility] Td 2005-04-18 Completed University of 00:00:00 [facility] Td 2005-04-18 Completed University of 00:00:00 [facility] Td 2005-04-18 Completed University of 00:00:00 [facility] Td 2005-04-18 Completed University of 00:00:00 [facility] Td 2005-04-18 Completed University of 00:00:00 [facility] Td 2005-04-18 Completed University of 00:00:00 [facility] Td 2005-04-18 Completed University of 00:00:00 [facility] Td 2005-04-18 Completed University of 00:00:00 [facility] Td 2005-04-18 Completed University of 00:00:00 [facility] Td 2005-04-18 Completed University of 00:00:00 [facility] Td 2005-04-18 Completed University of 00:00:00 [facility] Td 2005-04-18 Completed University of 00:00:00 [facility] Td 2005-04-18 Completed University of 00:00:00 [facility] Td 2005-04-18 Completed University of 00:00:00 [facility] Td 2005-04-18 Completed University of 00:00:00 [facility] Td 2005-04-18 Completed University of 00:00:00 [facility] Td 2005-04-18 Completed University of 00:00:00 [facility] Td 2005-04-18 Completed University of 00:00:00 [facility] Td 2005-04-18 Completed University of 00:00:00 [facility] Td 2005-04-18 Completed University of 00:00:00 [facility] Td 2005-04-18 Completed University of 00:00:00 [facility] Td 2005-04-18 Completed University of 00:00:00 [facility] Td 2005-04-18 Completed University of 00:00:00 [facility] Td 2005-04-18 Completed University of 00:00:00 [facility] Td 2005-04-18 Completed University of 00:00:00 [facility] Td 2005-04-18 Completed University of 00:00:00 [facility] Td 2005-04-18 Completed University of 00:00:00 [facility] Td 2005-04-18 Completed University of 00:00:00 [facility] Td 2005-04-18 Completed University of 00:00:00 [facility] TD, NOS 2005-04-18 Completed University of 00:00:00 [facility] TD, NOS 2005-04-18 Completed University of 00:00:00 [facility] TD, NOS 2005-04-18 Completed University of 00:00:00 [facility] TD, NOS 2005-04-18 Completed University of 00:00:00 [facility] TD, NOS 2005-04-18 Completed University of 00:00:00 [facility] TD, NOS 2005-04-18 Completed University of 00:00:00 [facility] TD, NOS 2005-04-18 Completed University of 00:00:00 [facility] TD, NOS 2005-04-18 Completed University of 00:00:00 [facility] TD, NOS 2005-04-18 Completed University of 00:00:00 [facility] TD, NOS 2005-04-18 Completed University of 00:00:00 [facility] TD, NOS 2005-04-18 Completed University of 00:00:00 [facility] TD, NOS 2005-04-18 Completed University of 00:00:00 [facility] TD, NOS 2005-04-18 Completed [facility] of 00:00:00 [facility] TD, NOS 2005-04-18 Completed University of 00:00:00 [facility] TD, NOS 2005-04-18 Completed University of 00:00:00 [facility] TD, NOS 2005-04-18 Completed University of 00:00:00 [facility] TD, NOS 2005-04-18 Completed University of 00:00:00 [facility] TD, NOS 2005-04-18 Completed University of 00:00:00 [facility] TD, NOS 2005-04-18 Completed University of 00:00:00 [facility] TD, NOS 2005-04-18 Completed University of 00:00:00 [facility] TD, NOS 2005-04-18 Completed University of 00:00:00 [facility] TD, NOS 2005-04-18 Completed University of 00:00:00 [facility] TD, NOS 2005-04-18 Completed University of 00:00:00 [facility] TD, NOS 2005-04-18 Completed University of 00:00:00 [facility] TD, NOS 2005-04-18 Completed University of 00:00:00 [facility] TD, NOS 2005-04-18 Completed University of 00:00:00 [facility] TD, NOS 2005-04-18 Completed University of 00:00:00 [facility] TD, NOS 2005-04-18 Completed University of 00:00:00 [facility] Td 2005-04-18 Completed University of 00:00:00 [facility] Td 2005-04-18 Completed University of 00:00:00 [facility] Td 2005-04-18 Completed University of 00:00:00 [facility] Vital Signs Vital Name Observation Time Observation Value Comments Source Systolic blood 2022-11-04 14:41:00 115 mm[Hg] Univer sity of pressure [facility] Diastolic blood 2022-11-04 14:41:00 70 mm[Hg] Unive rsity of pressure [facility] Heart rate 2022-11-04 14:41:00 67 /min [facility] Body height 2022-11-04 14:41:00 157.5 cm [facility] Body weight 2022-11-04 14:41:00 54.432 kg [facility] BMI 2022-11-04 14:41:00 21.95 kg/m2 [facility] Oxygen saturation in 2022-11-04 14:41:00 98 /min University of Arterial blood by [facility] Pulse oximetry Branch Systolic blood 2022-09-16 15:01:00 120 mm[Hg] Univer sity of pressure [facility] Diastolic blood 2022-09-16 15:01:00 82 mm[Hg] Unive rsity of pressure [facility] Heart rate 2022-09-16 15:01:00 78 /min [facility] Respiratory rate 2022-09-16 15:01:00 18 /min Univ ersity of [facility] Body height 2022-09-16 15:01:00 158.8 cm [facility] Body weight 2022-09-16 15:01:00 53.071 kg [facility] BMI 2022-09-16 15:01:00 21.06 kg/m2 [facility] Systolic blood 2022-07-29 15:06:00 110 mm[Hg] Univer sity of pressure [facility] Diastolic blood 2022-07-29 15:06:00 72 mm[Hg] Unive rsity of pressure [facility] Heart rate 2022-07-29 15:06:00 98 /min [facility] Body height 2022-07-29 15:06:00 158.8 cm [facility] Body weight 2022-07-29 15:06:00 53.479 kg [facility] BMI 2022-07-29 15:06:00 21.22 kg/m2 [facility] Oxygen saturation in 2022-07-29 15:06:00 100 /min University of Arterial blood by [facility] Pulse oximetry Branch Systolic blood 2022-04-15 22:18:00 107 mm[Hg] Univer sity of pressure [facility] Diastolic blood 2022-04-15 22:18:00 72 mm[Hg] Unive rsity of pressure [facility] Heart rate 2022-04-15 22:18:00 78 /min [facility] Body temperature 2022-04-15 22:18:00 36.78 Denia Univ ersity of [facility] Respiratory rate 2022-04-15 22:18:00 18 /min Univ ersity of [facility] Body height 2022-04-15 22:18:00 157.5 cm [facility] Body weight 2022-04-15 22:18:00 55.792 kg [facility] BMI 2022-04-15 22:18:00 22.50 kg/m2 [facility] Systolic blood 2022-03-15 21:11:00 118 mm[Hg] Univer sity of pressure [facility] Diastolic blood 2022-03-15 21:11:00 79 mm[Hg] Unive rsity of pressure [facility] Heart rate 2022-03-15 21:11:00 82 /min [facility] Body height 2022-03-15 21:11:00 158.8 cm [facility] Body weight 2022-03-15 21:11:00 56.246 kg [facility] BMI 2022-03-15 21:11:00 22.32 kg/m2 [facility] Oxygen saturation in 2022-03-15 21:11:00 97 /min University of Arterial blood by [place] [employer] Pulse oximetry Branch Systolic blood 2022-03-02 16:51:00 116 mm[Hg] Univer sity of pressure [facility] Diastolic blood 2022-03-02 16:51:00 74 mm[Hg] Unive rsity of pressure [facility] Heart rate 2022-03-02 16:51:00 67 /min [facility] Body height 2022-03-02 16:51:00 158.8 cm [facility] Body weight 2022-03-02 16:51:00 58.06 kg [facility] BMI 2022-03-02 16:51:00 23.04 kg/m2 [facility] Oxygen saturation in 2022-03-02 16:51:00 100 /min University of Arterial blood by [employer] Pulse oximetry Branch Systolic blood 2022-02-25 19:26:00 116 mm[Hg] Univer sity of pressure [facility] Diastolic blood 2022-02-25 19:26:00 72 mm[Hg] Unive rsity of pressure [facility] Heart rate 2022-02-25 19:26:00 66 /min [facility] Body temperature 2022-02-25 19:26:00 36.83 Denia Univ ersity of [facility] Body height 2022-02-25 19:26:00 160 cm [facility] Body weight 2022-02-25 19:26:00 57.607 kg [facility] BMI 2022-02-25 19:26:00 22.50 kg/m2 Universi ty of [facility] Systolic blood 2022-02-23 15:52:00 106 mm[Hg] Univer sity of pressure [facility] Diastolic blood 2022-02-23 15:52:00 64 mm[Hg] Unive rsity of pressure [facility] Heart rate 2022-02-23 15:52:00 67 /min [facility] Body height 2022-02-23 15:52:00 160 cm [facility] Body weight 2022-02-23 15:52:00 57.834 kg [facility] BMI 2022-02-23 15:52:00 22.59 kg/m2 [facility] Oxygen saturation in 2022-02-23 15:52:00 100 /min University Arterial blood by [facility] Pulse oximetry Branch Systolic blood 2022-02-04 15:57:00 128 mm[Hg] Univer sity of pressure [facility] Diastolic blood 2022-02-04 15:57:00 87 mm[Hg] Unive rsity of pressure [facility] Heart rate 2022-02-04 15:57:00 94 /min Universi ty of [facility] Body temperature 2022-02-04 15:57:00 36.72 Denia Univ ersity of [facility] Respiratory rate 2022-02-04 15:57:00 18 /min Univ ersity of [facility] Body height 2022-02-04 15:57:00 158.8 cm Universi ty of [facility] Body weight 2022-02-04 15:57:00 58.242 kg [facility] BMI 2022-02-04 15:57:00 23.11 kg/m2 [facility] Systolic blood 2022-01-27 21:02:00 120 mm[Hg] Univer sity of pressure [facility] Diastolic blood 2022-01-27 21:02:00 79 mm[Hg] Unive rsity of pressure [facility] Heart rate 2022-01-27 21:02:00 71 /min [facility] Body temperature 2022-01-27 21:02:00 36.83 Denia Univ [facility] Respiratory rate 2022-01-27 21:02:00 18 /min Univ [facility] Body height 2022-01-27 21:02:00 158.8 cm [facility] Body weight 2022-01-27 21:02:00 58.968 kg [facility] BMI 2022-01-27 21:02:00 23.40 kg/m2 [facility] Systolic blood 2021-11-05 18:43:00 123 mm[Hg] Univer sity of pressure [facility] Diastolic blood 2021-11-05 18:43:00 79 mm[Hg] Unive rsity of pressure [facility] Heart rate 2021-11-05 18:43:00 65 /min [facility] Body temperature 2021-11-05 18:43:00 36.89 Denia Univ [facility] Respiratory rate 2021-11-05 18:43:00 18 /min Univ [facility] Body height 2021-11-05 18:43:00 158.8 cm [facility] Body weight 2021-11-05 18:43:00 66.225 kg [facility] BMI 2021-11-05 18:43:00 26.28 kg/m2 [facility] Procedures Procedure Date / Time Performing Clinician Source Performed SCANNED LAB RESULTS 2022-09-16 05:01:00 Doctor Unassigned, Karuna [facility] INSURANCE CORRESPONDENCE 2022-08-05 05:01:00 Doctor Unassigned, [facility] SCANNED LAB RESULTS 2022-04-15 06:01:00 Doctor Sneha [facility] INSURANCE CORRESPONDENCE 2022-03-25 06:01:00 Doctor Sneha, [facility] [place] PAIN MANAGEMENT AGREEMENT 2022-03-15 06:01:00 Doctor Sneha, [facility] & INFORMED CONSENT [facility] h PATIENT QUESTIONNAIRE 2022-03-02 06:01:00 Doctor Sneha, [facility] FLU VACC (), 6 2022-02-25 19:29:47 Tejas Lopez [facility] MO-65 YRS, .5ML, IM, QUAD Medica l Branch (FLUCELVAX) ASSIGNMENT OF BENEFITS 2022-02-04 15:37:44 Doctor Senha, Un [facility] Name Medical Branch POCT TEST 2022-02-04 00:00[facility]00 [facility] Start End Encounter Admission Attending Care Care Encounter Source Date/Time Date/Time Type Type Clinicians Facility Department ID 2021-07-13 Inpatient P TEJAS LOPEZ [facility] MANINDER [id number] Univers 06:20:00 [facility] 2021-07-11 Emergency X [facility] [id number] Univers 09:09:43 [facility] 2021-02-15 Emergency [facility] [id number] Univers 10:42:42 [facility] 2023-03-08 2023-03-08 Outpatient Randall MEZA [facility] [id number] Univers 09:20:00 09:20:00 , ISREAL it y [facility] 2022-11-16 2022-11-16 Outpatient R TEJAS LOPEZ [facility] [id number] Univers 13:30:00 13:30:00 [facility] 2022-11-04 2022-11-04 Outpatient R CHRISTIANE TREADWELL [facility] [id number] Univers 09:40:00 10:20:53 CHRISTIANE TREADWE[facility] 2022-11-04 2022-11-04 Office Yesy [facility] [id number] Univers 09:40:00 10:20:53 Visit [facility] [id number] ity of [employer] [id number] Salty as FEDE?BLEA [id number] [address] OFFICE [facility] 2022-10-28 2022-10-28 Outpatient R YESY CHRISTIANE [facility] [id number] Univers 10:40:00 10:40:00 CHRISTIANE TREADWELL [facility]prakash [facility] 2022-10-21 2022-10-21 Telephone Tejas Lopez [facility] [id number] Univers 00:00:00 00:00:00 Cam JEFFERSONSERENA [id number] i [id number] [id number] [address] 2022-10-14 2022-10-14 [facility] [id number] Univers 00:00:00 00:00:00 [facility] [id number] ity of [employer] [id number] Salty as FEDE?BLEA [id number] [address] 2022-09-22 2022-09-22 Telephone Ralph [facility] [id number] Univers 00:00:00 00:00:00 Gris BUNCH [id number] it [id number] [facility] [id number] [address] 2022-09-16 2022-09-16 Outpatient R JASON KENDRICK [facility] B [id number] Univers 10:00:00 10:13:32 JASON KENDR[facility] 2022-09-16 2022-09-16 [facility] [id number] Univers 10:00:00 10:13:32 Visit Jason BUNCH [id number] it y of [id number] [facility] [id number] [address] 2022-09-16 2022-09-16 Orders Doctor BRISA [id number] Univers 00:00:00 00:00:00 Only Unassigned, DANIEL [id number] [facility] [id number] Salty as [id number] [address] 2022-09-13 2022-09-13 [facility] [id number] Univers 00:00:00 00:00:00 [facility] [id number] ity of [place] [id number] Salty as FEDE?BLEA [id number] [address] 2022-08-25 2022-08-25 Outpatient R TEJAS LOPEZ [facility] [id number] Univers 13:30:00 13:30:00 ity of [facility] 2022-08-05 2022-08-05 Orders Doctor BRISA 1.2.840.114 [id number] Univers 00:00:00 00:00:00 Only Unassigned, DANIEL 350.1.13.10 ity of [place] [facility] 4.2.7.2.686 Salty as [id number] [address] 2022-07-30 2022-07-30 [facility] 1.2.840.114 [id number] Univers 00:00:00 00:00:00 Christiane HEALTH 350.1.13.10 ity of [place] 4.2.7.2.686 Salty as FEDE?BLEA [id number] [address] OFFICE [facility] 2022-07-30 2022-07-30 Telephone [facility] 1.2.898.696 [id number] Univers 00:00:00 00:00:00 Christiane HEALTH 350.1.13.10 ity of [place] 4.2.7.2.686 Salty as FEDE?BLEA [id number] [address] 2022-07-29 2022-07-29 Outpatient R YESY CHRISTIANE [facility] [id number] Univers 10:00:00 10:44:31 KLEY, CHRISTIANE itprakash [facility] 2022-07-29 2022-07-29 Office [facility] 1.2.840.114 [id number] Univers 10:00:00 10:44:31 Visit [facility] 350.1.13.10 ity of [employer] 4.2.7.2.686 Salty as FEDE?BLEA [id number] [address] OFFICE [facility] 2022-07-22 2022-07-22 Patient [facility] 1.2.840.114 [id number] Univers 00:00:00 00:00:00 Secure Msg [facility] 350.1.13.10 ity of [employer] 4.2.7.2.686 Salty as FEDE?BLEA [id number] [address] OFFICE [facility] 2022-07-20 2022-07-20 Refill [facility] 1.2.840.114 [id number] Univers 00:00:00 00:00:00 [facility] 350.1.13.10 ity of [employer] 4.2.7.2.686 Salty as FEDE?BLEA [id number] [address] OFFICE [facility] 2022-07-12 2022-07-12 Out[facility] [id number] Univers 11:00:00 11:00:00 [facility] 2022-06-22 2022-06-22 Refill [facility] 1.2.840.114 [id number] Univers 00:00:00 00:00:00 [facility] 350.1.13.10 ity of [employer] 4.2.7.2.686 Salty as FEDE?BLEA [id number] [address] OFFICE [facility] 2022-06-22 2022-06-22 Patient [facility]AD[facility] 1.2.840.114 [id number] Univers 00:00:00 00:00:00 Secure Msg Katherine Hair [place] 350.1.13.10 ity [facility] [place] [id number] [address] 2022-05-24 2022-05-24 Refjuan SatyaprakashADVANCED [facility] 1.2.840.114 [id number] Univers 00:00:00 00:00:00 [facility] 350.1.13.10 ity of [place] 4.2.7.2.686 Salty as FEDE?BLEA [id number] [address] OFFICE [facility] 2022-04-28 2022-04-28 Telephone [facility]AD[facility] 1.2.840.114 [id number] Univers 00:00:00 00:00:00 Sangeeta RICHARDSON 350.1.13.10 i ty [facility] [place] [id number] [address] 2022-04-26 2022-04-26 [facility] MarleneADV[facility] 1.2.840.114 [id number] Univers 00:00:00 00:00:00 [facility] 350.1.13.10 it y of [place] [facility] 4.2.7.2.686 Salty as FEDE?BLEA [id number] [address] OFFICE [facility] 2022-04-15 2022-04-15 Office [facility]iraAD[facility] 1.2.905.370 [id number] Univers 16:45:00 16:45:00 Visit Sangeeta RICHARDSON 350.1.13.10 i ty of [facility] 4.2.7.2.[place] [id number] [address] 2022-04-15 2022-04-15 Outpatient R SONALI [facility] [id number] Univers 16:45:00 16:28:51 SANGEETA ity [facility] 2022-04-15 2022-04-15 Telephone Ralph HIMAKENZIE CEDEÑO 1.2.840.114 [id number] Univers 00:00:00 00:00:00 Gris BUNCH 350.1.13.10 it y [place] [facility] [id number] [address] 2022-04-15 2022-04-15 Patient [facility] 1.2.904.846 [id number] Univers 00:00:00 00:00:00 Secure Msg Gris BUNCH 350.1.13.10 it[place] [facility] [id number] [facility] [address] [place] 2022-04-15 2022-04-15 Orders Doctor BRISA 1.2.840.114 [id number] Univers 00:00:00 00:00:00 Only Unassigned, DANIEL 350.1.13.10 ity of [place] [facility] 4.2.7.2.686 Salty as [id number] [address] 2022-03-29 2022-03-29 Patient [facility] 1.2.840.114 [id number] Univers 00:00:00 00:00:00 Secure Msg Christiane HEALTH 350.1.13.10 ity of [place] 4.2.7.2.686 Salty as FEDE?BLEA [id number] [address] MEDICAL OFFICE [facility] 2022-03-25 2022-03-25 Telephone [facility] 1.2.840.114 [id number] Univers 00:00:00 00:00:00 Damon HEALTH 350.1.13.10 it y of [place] 4.2.7.2.686 Salty as FEDE?BLEA [id number] [address] OFFICE [facility] 2022-03-25 2022-03-25 Telephone [facility] 1.2.840.114 [id number] Univers 00:00:00 00:00:00 Damon HEALTH 350.1.13.10 it y of [place] 4.2.7.2.686 Salty as FEDE?BLEA [id number] [address] MEDICAL OFFICE [facility] 2022-03-25 2022-03-25 Orders Doctor BRISA 1.2.840.114 [id number] Univers 00:00:00 00:00:00 Only Unassigned, DANIEL 350.1.13.10 ity of [place] [facility] 4.2.7.2.686 Salty as [id number] [address] 2022-03-24 2022-03-24 Telephone [facility] 1.2.840.114 [id number] Univers 00:00:00 00:00:00 Damon HEALTH 350.1.13.10 it y of [place] 4.2.7.2.686 Salty as FEDE?BLEA [id number] [address] OFFICE [facility] 2022-03-23 2022-03-23 Telephone [facility] 1.2.565.610 [id number] [id number] Univers 00:00:00 00:00:00 Christiane HEALTH 350.1.13.10 ity of [place] 4.2.7.2.686 Salty as FEDE?BLEA [id number] [address] 2022-03-22 2022-03-22 [facility] 1.2.840.114 [id number] Univers 00:00:00 00:00:00 Malini L [place] 350.1.13.10 ity of [place] [id number] [address] 2022-03-21 2022-03-21 Refill [facility] 1.2.840.114 [id number] Univers 00:00:00 00:00:00 Malini L [place] 350.1.13.10 ity of [place] [id number] Pr dicwv NAL [address] [place] [address] 2022-03-20 2022-03-20 [facility] 1.2.840.114 [id number] Univers 00:00:00 00:00:00 Malini L [place] 350.1.13.10 ity of [place] [id number] [address] 2022-03-19 2022-03-19 Telephone [facility] 1.2.840.114 [id number] Univers 00:00:00 00:00:00 Damon HEALTH 350.1.13.10 it y of [place] 4.2.7.2.686 Salty as FEDE?BLEA [id number] Pr dicgabriel ASHEY [address] [place] MEDICAL OFFICE BUILDING 2022-03-19 2022-03-19 Refill Carlos [facility] 1.2.840.114 [id number] Univers 00:00:00 00:00:00 aMlini RICHARDSON 350.1.13.10 ity [facility] [place] [id number] Pr dicgabriel MOLINA [address] [facility] 2022-03-18 2022-03-18 Patient [facility]ADV[facility] 1.2.840.114 [id number] Univers 00:00:00 00:00:00 Secure Msg [facility] 350.1.13.10 ity of [employer] 4.2.7.2.686 Salty as FEDE?BLEA [id number] [facility] [address] [place] MEDICAL OFFICE [facility] 2022-03-15 2022-03-15 Outpatient [facility] [id number] Univers 15:20:00 15:37:24 [facility] 2022-03-15 2022-03-15 Office [facility]AD[facility] 1.2.840.114 [id number] Univers 15:20:00 15:37:24 Visit [facility] 350.1.13.10 ity of [employer] 4.2.7.2.686 Salty as FEDE?BLEA [id number] [address] MEDICAL OFFICE [facility] 2022-03-15 2022-03-15 Orders Doctor BRISA 1.2.840.114 [id number] Univers 00:00:00 00:00:00 Only Unassigned, DANIEL 350.1.13.10 ity of [place] [facility] 4.2.7.2.686 Salty as [id number] [address] 2022-03-04 2022-03-04 Outpatient R YESY [facility] [id number] Univers 10:00:00 10:00:00 [facility] 2022-03-02 2022-03-02 Outpatient [facility] [id number] Univers 11:00:00 11:19:16 [facility] 2022-03-022022-03-02 Office [facility]AD[facility] 1.2.840.114 [id number] Univers 11:00:00 11:19:16 Visit Christiane [facility] 350.1.13.10 ity [facility] 4.2.7.2.686 Salty as FEDE?BLEA [id number] [facility] 0[address] [facility] OFFICE [facility] 2022-03-02 2022-03-02 Orders Doctor BRISA 1.2.840.114 [id number] Univers 00:00:00 00:00:00 Only Unassigned, DANIEL 350.1.13.10 ity of [place] [facility] 4.2.7.2.686 Salty as [id number] [address] 2022-02-25 2022-02-25 Outpatient R TEJAS LOPEZ [facility] [id number] Univers 13:30:00 14:14:02 ity of [facility] 2022-02-25 2022-02-25 Office Tejas Lopez [facility] 1.2.955.309 [id number] Univers 13:30:00 14:14:02 Visit Cam [place] 350.1.13.10 i ty of [facility] 4.2.[place].2.[place] [id number] Pr eileen [facility] 134 [facility] 2022-02-23 2022-02-23 Media Analyst Lab, [facility] 1.2.840.1 14 [id number] Univers 10:30:00 10:45:00 Visit Humberto Jade 350.1.13.10 ity of [employer] 4.2.7.2.686 Salty as FEDE?BLEA [phone] Pr eileen MUNOZ 353 [facility] OFFICE [facility] 2022-02-23 2022-02-23 Outpatient R YASMANY [facility] [id number] Univers 10:30:00 10:30:00 HUMBERTO cole [facility] 2022-02-23 2022-02-23 Office YasmanyADVANC[facility] 1.2.840.114 [id number] Univers 10:00:00 10:21:55 Visit Humberto [facility] 350.1.13.10 it y [facility] 4.2.7.2.686 Salty as FEDE?BLEA [id number] Me dical KNEY [address] [place] MEDICAL OFFICE BUILDING 2022-02-10 2022-02-10 Case Carlos, [facility] 1.2.840.114 [id number] Univers 00:00:00 00:00:00 Management Malini L [place] 350.1.13.10 ity of [facility] [place] [id number] Pr dical NAL [address] [facility] 2022-02-08 2022-02-08 Patient Leida, [facility] 1.2.840.114 [id number] Univers 00:00:00 00:00:00 Secure Msg Rocio [place] 350.1.13.10 ity of [place].2.[place] [id number] Pr dical NAL [address] [facility] 2022-02-04 2022-02-04 Media Analyst 2, Adc Lab [facility] 1.2.840.114 [id number] Univers 11:45:00 12:00:00 Visit Sangeeta Lyon 350.1.13.10 ity of [place] 4[place].2.[place] [id number] Pr dical NAL [address] [facility] 2022-02-04 2022-02-04 Outpatient R SONALI [facility] [id number] Univers 10:30:00 11:33:16 SANGEETA cole of [facility] 2022-02-04 2022-02-04 Office [facility]AD[facility] 1.2.322.772 [id number] [id number] Univers 10:30:00 11:33:16 Visit Sangeeta RICHARDSON 350.1.13.10 i ty of [facility] 4.2.7.2.[place] [id number] Pr dical NAL [address] [facility] 2022-02-04 2022-02-04 Orders Doctor BRISA 1.2.840.114 [id number] Univers 00:00:00 00:00:00 Only Unassigned, DANIEL 350.1.13.10 ity of [place] [facility] 4.2.7.2.686 Salty as [id number] [address] 2022-01-27 2022-01-27 Office [facility]AD[facility] 1.2.629.758 [id number] Univers 16:30:00 16:30:00 Visit Sangeeta RICHARDSON 350.1.13.10 i ty of [facility] 4.2.7.2.[place] [id number] [address] 2022-01-27 2022-01-27 Outpatient [facility] [id number] Univers 16:30:00 16:13:58 SANGEETA [facility] 2022-01-26 2022-01-26 Patient Leida, [facility] 1.2.840.114 [id number] Univers 00:00:00 00:00:00 Secure Msg Rocio [place] 350.1.13.10 ity of [facility] 4[place] [id number] [address] 2021-12-01 2021-12-01 Refill [facility] 1.2.959.447 [id number] Univers 00:00:00 00:00:00 Sangeeta RICHARDSON 350.1.13.10 i ty of [facility] 4.2.[place].2.[place] [id number] [address] 2021-11-16 2021-11-16 Outpatient R SONALI [facility] [id number] Univers 10:00:00 10:00:00 SANGEETA cole [facility] 2021-11-05 2021-11-05 Outpatient Randall LYON [facility] [id number] Univers 13:30:00 14:00:15 SANGEETA cole [facility] 2021-11-05 2021-11-05 Office [facility] 1.2.461.822 [id number] Univers 13:30:00 14:00:15 Visit Sangeeta RICHARDSON 350.1.13.10 i ty of [facility] 4.2.7.2.[place] [id number] [address] 2021-09-30 2021-09-30 Outpatient R [facility]UN[facility] [id number] Univers 16:30:00 16:30:00 SANGEETA prakash [facility] 2021-09-30 2021-09-30 Office [facility]AD[facility] 1.2.345.968 [id number] Univers 16:30:00 16:30:00 Visit Sangeeta RICHARDSON 350.1.13.10 i ty of [place] 4[place].2.[place] [id number] [address] 2021-09-30 2021-09-30 Outpatient [facility] [id number] Univers 16:30:00 14:08:23 SANGEETA prakash [facility] 2021-09-29 2021-09-29 Telephone John Tejas [facility] 1.2.840.114 [id number] Univers 00:00:00 00:00:00 Cam [place] 350.1.13.10 i ty of [place].2.[place] [id number] [address] 2021-09-24 2021-09-24 Outpatient R JOHN TEJAS [facility] [id number] Univers 13:00:00 13:00:00 ity of [facility] 2021-08-24 2021-08-24 Outpatient R JOHN TEJAS [facility] [id number] Univers 11:15:00 11:55:53 ity of [facility] 2021-08-24 2021-08-24 Routine John Tejas [facility] 1.2.167.341 [id number] Univers 11:15:00 11:55:53 Moshe RICHARDSON 350.1.13.10 ity of [place].2.[place] [id number] [address] 2021-08-24 2021-08-24 Orders Doctor LEDEZMA 1.2.840.114 [id number] Univers 00:00:00 00:00:00 Only Unassigned, DANIEL 350.1.13.10 ity of [place] [facility] 4.2.7.2.686 Salty as [id number] [address] 2021-07-29 2021-07-29 Outpatient R TEJAS LOPEZ [facility] [id number] Univers 10:15:00 10:44:56 ity of [facility] 2021-07-29 2021-07-29 Routine Tejas Lopez [facility] 1.2.234.927 [id number] Univers 10:15:00 10:44:56 Cam [place] 350.1.13.10 ity of [place] 4[place].2.[place] [id number] Pr dical NAL [address] [facility] 2021-07-27 2021-07-27 Outpatient R TEJAS LOPEZ [facility] [id number] Univers 09:45:00 10:27:57 ity of [facility] 2021-07-27 2021-07-27 Routine Tejas Lopez [facility] 1.2.340.364 [id number] [id number] Univers 09:45:00 10:27:57 Cam [place] 350.1.13.10 ity of [place].2.[place] [id number] Pr dical NAL [address] [place] [address] 2021-07-13 2021-07-14 Inpatient P TEJAS LOPEZ [facility] MANINDER [id number] Univers 06:20:00 18:05:00 ity of [facility] 2021-07-13 2021-07-14 Hospital Tejas Lopez [facility] 1.2.840.114 [id number] Univers 06:20:00 18:05:00 Encounter Cam [place] 350.1.13.10 ity of [place] 4.2.7.2.686 [facility] [id number] [facility] [address] [place] 2021-07-13 2021-07-13 Surgery Tejas Lopez [facility] 1.2.712.767 [id number] Univers 08:00:00 09:27:00 Cam [place] 350.1.13.10 i ty of [place] 4.2.7.2.686 [facility] [id number] [facility] [address] [place] 2021-07-11 2021-07-11 Outpatient R [facility] [id number] Univers 11:45:00 11:45:00 ity of [facility] 2021-07-11 2021-07-11 Media Analyst Juve, Adc Lab Main [facility] 1.2.8 40.114 [id number] Univers 09:00:00 09:15:00 Visit Tejas Lopez Moshe RICHARDSON 350.1.13.10 ity of [place] [id number] Pr dical [facility] [address] [facility] 2021-07-11 2021-07-11 Outpatient R TEJAS LOPEZ [facility] [id number] Univers 09:00:00 09:00:00 ity of [facility] 2021-07-11 2021-07-11 Laboratory Only, Adc Test [facility] 1.2.840. 114 [id number] Univers 08:45:00 09:00:00 Only Tejas Lopez Moshe R[place]ARDSON 350.1.13.10 it[place] [id number] [facility] [address] [place] 2021-07-09 2021-07-09 Outpatient R TEJAS LOPEZ [facility] [id number] Univers 13:15:00 14:02:16 ity of [facility] 2021-07-09 2021-07-09 Routine Tejas Lopez HIMAKENZIE 1.2.321.946 [id number] Univers 13:15:00 14:02:16 Moshe JEFFERSONSERENA 350.1.13.10 ity of [place] [phone] [facility] [address] [facility] 2021-07-09 2021-07-09 Orders Doctor LEDEZMA 1.2.840.114 [id number] Univers 00:00:00 00:00:00 Only Unassigned, DANIEL 350.1.13.10 ity of [place] [facility] 4.2.7.2.686 Salty as [id number] [facility] [address] [place] 2021-07-02 2021-07-02 Outpatient R TEJAS LOPEZ [facility] [id number] Univers 16:00:00 16:44:13 ity of [facility] 2021-07-02 2021-07-02 Routine Tejas Lopez HIMAKENZIE 1.2.331.952 [id number] [id number] Univers 16:00:00 16:44:13 Cam [place] 350.1.13.10 ity of [place] [id number] Pr dical [facility] 134 [facility] 2021-06-22 2021-06-22 Media Analyst 2, Adc Lab [facility] 1.2.840.114 [id number] Univers 14:45:00 15:00:00 Visit John Tejasrosa RICHARDSON 350.1.13.10 ity of [place] [id number] [facility] [address] [facility] 2021-06-22 2021-06-22 Outpatient R TEJAS LOPEZ [facility] [id number] Univers 13:45:00 14:38:05 ity of [facility] 2021-06-22 2021-06-22 Routine [facility] 1.2.419.755 [id number] [id number] Univers 13:45:00 14:38:05 Cam [place] 350.1.13.10 ity of [place].2.[place] [id number] [address] 2021-06-22 2021-06-22 Telephone Tejas Lopez [facility] 1.2.840.114 [id number] Univers 00:00:00 00:00:00 Cam [place] 350.1.13.10 i ty of [place] 4[place].2.[place] [id number] [facility] 134 [facility] 2021-06-22 2021-06-22 Orders Doctor BRISA 1.2.840.114 [id number] Univers 00:00:00 00:00:00 Only Unassigned, DANIEL 350.1.13.10 ity of [place] [facility] 4.2.7.2.686 Salty as [id number] [address] 2021-06-11 2021-06-11 Outpatient R TEJAS LOPEZ [facility] [id number] Univers 16:15:00 16:46:15 ity of [facility] 2021-06-11 2021-06-11 Routine Tejas Lopez [facility] 1.2.976.220 [id number] [id number] Univers 16:15:00 16:46:15 Cam [place] 350.1.13.10 ity of [place] [id number] Pr dical NAL 134 [facility] 2021-05-28 2021-05-28 Outpatient R TEJAS LOPEZ [facility] [id number] Univers 15:45:00 15:56:50 ity of [facility] 2021-05-28 2021-05-28 Routine John [facility] 1.2.043.291 [id number] [id number] Univers 15:45:00 15:56:50 Cam [place] 350.1.13.10 ity of [place].2.[place] [id number] Pr dical NAL [address] [facility] 2021-05-14 2021-05-14 Outpatient R TEJAS LOPEZ [facility] [id number] Univers 11:15:00 11:48:51 ity of [facility] 2021-05-14 2021-05-14 Routine Tejas Lopez [facility] 1.2.598.570 [id number] Univers 11:15:00 11:48:51 Cam [place] 350.1.13.10 ity of [place]2.[place] [id number] Pr dical NAL [address] [facility] 2021-04-16 2021-04-16 Media Analyst 2, [facility] 1.2.840.114 [id number] Univers 10:00:00 10:00:00 Visit Tejas Lopez [place] 350.1.13.10 ity of [place].2.[place] [id number] Pr dical NAL [address] [facility] 2021-04-16 2021-04-16 Outpatient R TEJAS LOPEZ [facility] [id number] Univers 08:45:00 09:07:43 ity of [facility] 2021-04-16 2021-04-16 Routine Tejas Lopez [facility] 1.2.061.700 [id number] [id number] Univers 08:45:00 09:07:43 Cam [place] 350.1.13.10 ity of [place].2.[place] [id number] Pr dical NAL [address] [place] [address] 2021-04-13 2021-04-13 Outpatient X TEJAS LOPEZ [facility] MANINDER [id number] Univers 19:48:00 23:50:00 ity of [facility] 2021-04-13 2021-04-13 [facility] 1.2.840.114 [id number] Univers 19:48:00 23:50:00 Cam [place] [id number] i ty of [place] [phone] [facility] [address] [place] 2021-04-13 2021-04-13 Orders Doctor BRISA 1.2.840.114 [id number] Univers 00:00:00 00:00:00 Only Unassigned, DANIEL 350.1.13.10 ity of [place] [facility] 4.2.7.2.686 Salty as [phone] [facility] [address] [place] 2021-03-19 2021-03-19 Outpatient R TEJAS LOPEZ [facility] [id number] Univers 13:30:00 14:00:12 ity of [facility] 2021-03-19 2021-03-19 Routine Tejas Lopez [facility] [id number] Univers 13:14:21 14:00:12 Cam [place] 350.1.13.10 [place]y of [place] [phone] Pr dical NAL [address] [place] [address] 2021-03-03 2021-03-03 Media Analyst Ultrasound, Jose [facility] 1.2 .840.114 [id number] Univers 09:44:32 10:44:32 Visit Kayy Bustamante 350.1.13.10 ity of [place] [phone] Pr dical NAL [address] [place] [address] 2021-03-03 2021-03-03 Outpatient P SHAYLA [facility] [id number] Univers 09:30:00 09:30:00 SULTANA itprakash of [facility] 2021-02-19 2021-02-19 [facility] 1.2.362.925 [id number] Univers 15:52:45 16:49:52 Moshe RICHARDSON 350.1.13.10 ity of [place] [phone] Pr dical NAL [address] [facility] 2021-02-19 2021-02-19 Outpatient R TEJAS LOPEZ [facility] [id number] Univers 15:00:00 15:00:00 ity of [facility] 2021-02-05 2021-02-05 Media Analyst Juve, [facility] Main [facility] 1.2.8 40.114 [id number] Univers 10:34:54 10:49:54 Visit Tejas Lopez Moshe Richardson 350.1.13.10 ity [facility] [place]7.2.[place] [phone] Pr eileen molina 353 [facility] 2021-02-05 2021-02-05 Outpatient R TEJAS LOPEZ [facility] [id number] Univers 10:45:00 10:45:00 ity of [facility] 2021-01-22 2021-01-22 Routine Tejas Lopez [facility] 1.2.840.114 [id number] Univers 11:25:54 12:02:58 Sangeeta Lyon 350.1.13.10 ity of [place] [phone] Pr dical nal 134 [facility] 2021-01-22 2021-01-22 Outpatient R SONALI [facility] [id number] Univers 11:15:00 11:15:00 SANGEETA [facility] 2021-01-18 2021-01-18 Orders Doctor LEDEZMA 1.2.840.114 [id number] Univers 00:00:00 00:00:00 Only Unassigned, DANIEL 350.1.13.10 ity of [place] [facility] 4.2.7.2.686 Salty as [phone] [address] 2021-01-09 2021-01-09 Telephone Lopez Tejas [facility] 1.2.840.114 [id number] Univers 00:00:00 00:00:00 Cam [place] [id number] i [id number] [phone] Pr dical nal 134 [facility] 2021-01-09 2021-01-09 Telephone John Tejas [facility] [id number] Univers 00:00:00 00:00:00 Cam [place] [id number] [id number] [phone] Pr dical nal 134 [facility] 2021-01-08 2021-01-08 Media Analyst Juve, Adc Lab Main [facility] 1.2.8 40.114 [id number] Univers 09:54:31 10:09:31 Visit Tejas [place] [id number] it[id number] [phone] [facility] 353 [facility] 2021-01-08 2021-01-08 Outpatient R TEJAS LOPEZ [facility] [id number] Univers 10:00:00 10:00:00 ity of [facility] 2021-01-02 2021-01-02 Telephone Tejas Lopez [facility] [id number] Univers 00:00:00 00:00:00 Cam [place] [id number] [id number] [phone] Pr dical nal 134 [facility] 2020-12-25 2020-12-25 Routine Tejas Lopez [facility] [id number] Univers 11:00:45 11:48:07 Cam [place] [id number] ity of [id number] [phone] Pr dical nal [address] [place] [address] 2020-12-25 2020-12-25 Outpatient R JOHN TEJAS [facility] [id number] Univers 11:00:00 11:00:00 ity [facility] 2020-12-25 2020-12-25 Orders Doctor LEDEZMA 1.2.840.114 [id number] Univers 00:00:00 00:00:00 Only Unassigned, DANIEL [id number] ity of [place] [facility] [id number] [facility] [phone] [address] 2020-12-04 2020-12-04 Outpatient R [facility] [id number] Univers 09:00:00 09:00:00 ity [facility] 2020-11-27 2020-11-27 Outpatient R [facility] [id number] Univers 14:30:00 14:30:00 ity [facility] 2020-11-11 2020-11-11 Outpatient R [facility] [id number] Univers 08:30:00 08:30:00 ity [facility] 2020-11-11 2020-11-11 Orders Doctor LEDEZMA 1.2.840.114 [id number] 00:00:00 00:00:00 Only Unassigned, DANIEL [id number] [place] [facility] [phone] [id number] 2020-07-21 2020-07-21 Emergency [facility] [id number] 11:52:00 14:37:00 Davin Richardson [id number] [place] [id number] [place] [phone] [id number] 2020-07-21 2020-07-21 Orders Doctor LEDEZMA 1.2.840.114 [id number] 00:00:00 00:00:00 Only Unassigned, DANIEL [id number] [place] [facility] [id number] [id number] 2019-05-11 2019-05-11 Telephone [facility] 1.2.840.114 [id number] 00:00:00 00:00:00 Kalina Richardson [id number] [place] [id number] [place] [phone] [facility] 134 [facility] 2019-04-23 2019-04-23 Orders Doctor BRISA 1.2.840.114 [id number] 00:00:00 00:00:00 Only Unassigned, DANIEL [id number] [place] [facility] [id number] [id number] Results Test Description Test Time Test Comments Results Result Comments Source POCT TEST 2022-02-04 18:38:00 Test Item Value Reference Range Interpretation Comme nts POCT PREG (test code = 1605) Negative On board controls acceptable with C Line (test code = 3574) Yes POCT PREG LOT # (test code = 3575) POCT PREG TEST DATE (test code = 3576) [id number] 18:38:00 Test Item Value Reference Range Interpretation Comments POCT PREG (test code = 1605) Negative On board controls acceptable with C Yes Line (test code = 3574) POCT PREG LOT # (test code = 3575) POCT PREG TEST DATE (test code = 3576) [facility]
[2022-11-16] MEDS ORDERED: ONDANSETRON 4 MG/2 ML VIAL ONE ×2 (17:10→18:30)
[2022-11-16 17:30] LABS: Absolute Lymphocytes (CBC) 0.9 K/uL (0.7-4.9); Hematocrit 39.8 % (36.0-45.0); MCV 89.5 fL (80-100); MPV 8.1 fL (7.6-11.3); RBC Red Blood Cell Count 4.45 M/uL (3.86-4.86)
[2022-11-16 17:33] LABS: Protime INR 1.15
[2022-11-16 17:45] LABS: ALT/SGPT 17 U/L (13-56); AST/SGOT 13 U/L (15-37); Albumin 3.6 g/dL (3.4-5.0); Alkaline Phosphatase 62 U/L (45-117); BUN Blood Urea Nitrogen 12 mg/dL (7-18); Bicarbonate 22 mEq/L (21-32); Bilirubin Direct 0.2 mg/dL (0-0.2); Bilirubin Indirect, Calculated 0.6 mg/dL (0.2-0.8); Bilirubin Total 0.8 mg/dL (0.2-1.0); Glomerular Filtration Rate 120 ml/min (=/>90); Glucose Level 110 mg/dL (74-106); Potassium 3.1 mEq/L (3.5-5.1); Sodium Level 137 mEq/L (136-145)
[2022-11-16 17:50] LABS: Specific Gravity 1.027 (1.005-1.030)
[2022-11-16 17:59] LABS: Barbiturates NEGATIVE (NEGATIVE); Benzodiazepines NEGATIVE (NEGATIVE); Cocaine NEGATIVE (NEGATIVE); METHAMPHETAM NEGATIVE (NEGATIVE); Methadone NEGATIVE (NEGATIVE); Opiates NEGATIVE (NEGATIVE); Phencyclidine NEGATIVE (NEGATIVE); THC Cannibis POSITIVE (NEGATIVE)
[2022-11-16] MEDS ORDERED: LORazepam 2 MG/ML VIAL ONE ×2 (18:20→19:21)
[2022-11-16] MEDS ORDERED: POTASSIUM 25 MEQ EFFERV TAB ONE (18:20)
[2022-11-16] MEDS ORDERED: FAMOTIDINE 20 MG/2 ML VIAL IV ONE (18:21)
[2022-11-16] MEDS ORDERED: NA CHLORIDE 0.9% 1,000 ML ONE (18:21)
[2022-11-16] MEDS ORDERED: PROMETHAZINE INJ 25 MG/ML AMP ONE (18:30)
--- NOTE | 2022-11-16 18:59 | ER ---
Nurse's Notes [facility] Name: Italia Watts Age: 32 yrs Sex: Female : 1990 Arrival Date: 11/16/2022 Time: 16:37 Bed 15 Private MD: Diagnosis: Adjustment disorder with anxiety;Anxiety disorder, unspecified;Vomiting;Dehydration;Hypokalemia Presentation: 11/16 16:43 Chief complaint: EMS states: toned out to home for n/v for past 3 days, pt has not eh3 eaten in 3 days. Pt states her anxiety has been elevated since Tuesday and she has not taken her Sertraline or Vyvanse since then. Ebola Screen: No symptoms or risks identified at this time. Initial Sepsis Screen: Does the patient meet any 2 criteria? No. Patient's initial sepsis screen is negative. Does the patient have a suspected source of infection? No. Patient's initial sepsis screen is negative. Risk Assessment: Do you want to hurt yourself or someone else? Patient reports no desire to harm self or others. Onset of symptoms was November 16, 2022. 16:43 Method Of Arrival: EMS: [facility] 3 16:43 Acuity: SYLVAIN 3 eh3 16:43 Coronavirus screen: Vaccine status: Patient reports being unvaccinated. 3 Triage Assessment: 16:45 General: Appears distressed, uncomfortable, slender, Behavior is cooperative, eh3 appropriate for age, anxious. Pain: Denies pain. Neuro: Level of Consciousness is awake, alert, obeys commands, Oriented to person, place, time, situation. Cardiovascular: Capillary refill < 3 seconds Patient's skin is warm and dry. Respiratory: Airway is patent Respiratory effort is even, unlabored, Respiratory pattern is regular, symmetrical. GI: Abdomen is flat, non-distended, Reports intolerance of fluids, intolerance of food, nausea, vomiting. Derm: Skin is pink, warm \T\ dry. Musculoskeletal: Circulation, motion, and sensation intact. GRANTS DIRECTOR: 16:45 LMP 10/29/2022 3 Historical: - Allergies: 16:45 No Known Allergies; eh3 - Home Meds: 16:45 sertraline 50 mg oral tablet daily [Active]; Vyvanse 30 mg oral capsule daily [Active]; eh3 - PSHx: 16:45 section; eh3 - Immunization history:: Adult Immunizations up to date, Client reports having NOT received the Covid vaccine. - Social history:: Smoking status: Patient denies any tobacco usage or history of. Patient uses street drugs, marijuana, Patient/guardian denies using alcohol. Screenin:45 [facility] ED Fall Risk Assessment (Adult) Score/Fall Risk Level 0 - 2 = Low Risk. Abuse eh3 screen: Denies threats or abuse. Denies injuries from another. Nutritional screening: Has had N/V for 3 or more days. Tuberculosis screening: No symptoms or risk factors identified. Assessment: 16:45 Reassessment: No changes from previously documented assessment. See triage assessment. eh3 GI: Abdomen is flat, non-distended, Bowel sounds present X 4 quads. Abd is soft and non tender X 4 quads. 17:00 Reassessment: Patient and/or family updated on plan of care and expected duration. Pain eh3 level reassessed. Patient is alert, oriented x 3, equal unlabored respirations, skin warm/dry/pink. 17:30 Reassessment: Patient and/or family updated on plan of care and expected duration. Pain eh3 level reassessed. Patient is alert, oriented x 3, equal unlabored respirations, skin warm/dry/pink. 18:00 Reassessment: Patient and/or family updated on plan of care and expected duration. Pain eh3 level reassessed. Patient is alert, oriented x 3, equal unlabored respirations, skin warm/dry/pink. 18:30 Reassessment: Patient appears in no apparent distress at this time. Patient and/or eh3 family updated on plan of care and expected duration. Pain level reassessed. Patient is alert, oriented x 3, equal unlabored respirations, skin warm/dry/pink. Patient states symptoms have improved. 19:30 Reassessment: Patient appears in no apparent distress at this time. Patient and/or eh3 family updated on plan of care and expected duration. Pain level reassessed. Patient is alert, oriented x 3, equal unlabored respirations, skin warm/dry/pink. 19:42 Reassessment: Patient and/or family updated on plan of care and expected duration. Pain vc1 level reassessed. Patient is alert, oriented x 3, equal unlabored respirations, skin warm/dry/pink. Patient states symptoms have improved. Vital Signs: 16:43 BP 117 / 77; Pulse 62; Resp 20; Temp 98.4(O); Pulse Ox 100% ; Weight 54.43 kg; Height 5 eh3 ft. 2 in. ; Pain 0/10; 17:00 BP 103 / 79; Pulse 71; Resp 22; Pulse Ox 100% on R/A; eh3 17:30 BP 120 / 83; Pulse 71; Resp 20; Pulse Ox 100% on R/A; eh3 18:00 BP 140 / 96; Pulse 81; Resp 20; Pulse Ox 100% on R/A; eh3 18:30 BP 119 / 77; Pulse 78; Resp 20; Pulse Ox 100% on R/A; eh3 19:00 BP 116 / 74; Pulse 74; Resp 19; Pulse Ox 100% on R/A; eh3 19:41 BP 113 / 78; Pulse 94; Resp 20; Pulse Ox 99% ; vc1 16:43 Body Mass Index 21.95 (54.43 kg, 157.48 cm) [facility] 16:43 Pain Scale: Adult [facility] ED Course: 16:42 Patient arrived in ED. 3 16:43 Michele Samuel MD is Attending Physician. [facility] 16:45 Triage completed. 3 16:45 Arm band placed on. 3 16:45 Patient has correct armband on for positive identification. Bed in low position. Call 3 light in reach. Side rails up X2. Provided Education on: Use of call olmos. Pulse ox on. NIBP on. Door closed. Noise minimized. Lights dimmed. Warm blanket given. 16:45 Maintain EMS IV. Dressing intact. Good blood return noted. Site clean \T\ dry. Gauge \T\ 3 site: 22g RAC. 17:04 Laurita Barnett, JULIANNE is Primary Nurse. 3 18:45 Diet: Patient given juice. Tolerated well. eh3 18:57 Philippe Bond MD is Referral Physician. [facility] 19:43 No provider procedures requiring assistance completed. IV discontinued, intact, vc1 bleeding controlled, No redness/swelling at site. Pressure dressing applied. Administered Medications: 16:52 Drug: NS 0.9% IV 1000 ml Route: IV; Rate: 1 bolus; Site: right antecubital; eh3 18:00 Follow up: IV Status: Completed infusion; IV Intake: 1000ml eh3 17:10 Drug: Ondansetron IVP 4 mg Route: IVP; Site: right antecubital; eh3 18:00 Follow up: Response: No adverse reaction eh3 18:10 Drug: NS 0.9% IV 1000 ml Route: IV; Rate: 1 bolus; Site: right antecubital; eh3 19:30 Follow up: IV Status: Completed infusion; IV Intake: 1000ml eh3 18:10 Drug: Ativan IVP 1 mg Route: IVP; Site: right antecubital; eh3 19:30 Follow up: Response: No adverse reaction eh3 18:10 Drug: Famotidine IVP 20 mg Route: IVP; Site: right antecubital; eh3 19:30 Follow up: Response: No adverse reaction eh3 18:25 Drug: Promethazine IM 25 mg Route: IM; Site: right ventrogluteal; eh3 19:30 Follow up: Response: No adverse reaction eh3 18:25 Drug: Ondansetron IVP 4 mg Route: IVP; Site: right antecubital; eh3 19:30 Follow up: Response: No adverse reaction eh3 18:30 Drug: Potassium PO Effervescent Tablet 25 mEq Route: PO; eh3 19:30 Follow up: Response: No adverse reaction eh3 19:10 Drug: Ativan IVP 0.5 mg Route: IVP; Site: right antecubital; eh3 19:40 Follow up: Response: No adverse reaction eh3 Medication: 19:44 VIS not applicable for this client. vc1 Intake: 18:00 IV: 1000ml; Total: 1000ml. eh3 19:30 IV: 1000ml; Total: 2000ml. eh3 Outcome: 18:58 Discharge ordered by . fam 19:43 Discharged to home via wheelchair, with significant other. vc1 19:43 Condition: improved 19:43 Discharge instructions given to patient, significant other, Instructed on discharge instructions, follow up and referral plans. medication usage, Demonstrated understanding of instructions, follow-up care, medications, Prescriptions given X 2. 19:44 Patient left the ED. vc1 Signatures: Michele Samuel MD MD cha Calcote, Vanessa, RN RN vc1 Laurita Barnett RN RN 3
--- NOTE | 2022-11-16 18:59 | EDPHYS ---
Physician Documentation [facility] Name: Italia Watts Age: 32 yrs Sex: Female : 1990 Arrival Date: 11/16/2022 Time: 16:37 Bed 15 Private MD: ED Physician Michele Samuel HPI: 11/16 17:59 This 32 yrs old Female presents to ER via EMS with complaints of Anxiety, fam Nausea/Vomiting. 17:59 The patient presents to the emergency department with nausea, vomiting, that is fam continuous. Onset: The symptoms/episode began/occurred 3 day(s) ago. Possible causes: unknown, sick contacts. The symptoms are aggravated by STRESS. Associated signs and symptoms: Pertinent positives: nausea, vomiting. Severity of symptoms: At their worst the symptoms were mild moderate in the emergency department the symptoms are unchanged. The patient has not experienced similar symptoms in the past. 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 - Social history:: Smoking status: Patient denies any tobacco usage or history of. Patient uses street drugs, marijuana, Patient/guardian denies using alcohol. ROS: 18:00 Constitutional: Negative for fever, chills, and weight loss, Eyes: Negative for injury, fam pain, redness, and discharge, ENT: Negative for injury, pain, and discharge, Neck: Negative for injury, pain, and swelling, Cardiovascular: Negative for chest pain, palpitations, and edema, Respiratory: Negative for shortness of breath, cough, wheezing, and pleuritic chest pain, Back: Negative for injury and pain, : Negative for injury, bleeding, discharge, and swelling, MS/Extremity: Negative for injury and deformity, Skin: Negative for injury, rash, and discoloration, Neuro: Negative for headache, weakness, numbness, tingling, and seizure, Allergy/Immunology: Negative for hives, rash, and allergies, Endocrine: Negative for neck swelling, polydipsia, polyuria, polyphagia, and marked weight changes, Hematologic/Lymphatic: Negative for swollen nodes, abnormal bleeding, and unusual bruising. 18:00 Abdomen/GI: Positive for 18:00 Abdomen/GI: Positive for nausea and vomiting. Exam: 18:00 Constitutional: This is a well developed, well nourished patient who is awake, alert, fam and in no acute distress. Head/Face: Normocephalic, atraumatic. Eyes: Pupils equal round and reactive to light, extra-ocular motions intact. Lids and lashes normal. Conjunctiva and sclera are non-icteric and not injected. Cornea within normal limits. Periorbital areas with no swelling, redness, or edema. ENT: Nares patent. No nasal discharge, no septal abnormalities noted. Tympanic membranes are normal and external auditory canals are clear. Oropharynx with no redness, swelling, or masses, exudates, or evidence of obstruction, uvula midline. Mucous membranes moist. Neck: Trachea midline, no thyromegaly or masses palpated, and no cervical lymphadenopathy. Supple, full range of motion without nuchal rigidity, or vertebral point tenderness. No Meningismus. Chest/axilla: Normal chest wall appearance and motion. Nontender with no deformity. No lesions are appreciated. Cardiovascular: Regular rate and rhythm with a normal S1 and S2. No gallops, murmurs, or rubs. Normal PMI, no JVD. No pulse deficits. Respiratory: Lungs have equal breath sounds bilaterally, clear to auscultation and percussion. No rales, rhonchi or wheezes noted. No increased work of breathing, no retractions or nasal flaring. Abdomen/GI: Soft, non-tender, with normal bowel sounds. No distension or tympany. No guarding or rebound. No evidence of tenderness throughout. Back: No spinal tenderness. No costovertebral tenderness. Full range of motion. Skin: Warm, dry with normal turgor. Normal color with no rashes, no lesions, and no evidence of cellulitis. MS/ Extremity: Pulses equal, no cyanosis. Neurovascular intact. Full, normal range of motion. Neuro: Awake and alert, GCS 15, oriented to person, place, time, and situation. Cranial nerves II-XII grossly intact. Motor strength 5/5 in all extremities. Sensory grossly intact. Cerebellar exam normal. Normal gait. Psych: Awake, alert, with orientation to person, place and time. Behavior, mood, and affect are within normal limits. 18:00 Musculoskeletal/extremity: DVT Exam: No signs of deep vein thrombosis. no pain, no swelling, no tenderness, negative Homans' sign noted on exam, no appreciated bluish discoloration, no erythema, no increased warmth. 18:08 ECG was reviewed by the Attending Physician. [facility] Vital Signs: 16:43 BP 117 / 77; Pulse 62; Resp 20; Temp 98.4(O); Pulse Ox 100% ; Weight 54.43 kg; Height 5 eh3 ft. 2 in. ; Pain 0/10; 17:00 BP 103 / 79; Pulse 71; Resp 22; Pulse Ox 100% on R/A; eh3 17:30 BP 120 / 83; Pulse 71; Resp 20; Pulse Ox 100% on R/A; eh3 18:00 BP 140 / 96; Pulse 81; Resp 20; Pulse Ox 100% on R/A; eh3 18:30 BP 119 / 77; Pulse 78; Resp 20; Pulse Ox 100% on R/A; eh3 19:00 BP 116 / 74; Pulse 74; Resp 19; Pulse Ox 100% on R/A; eh3 19:41 BP 113 / 78; Pulse 94; Resp 20; Pulse Ox 99% ; vc1 16:43 Body Mass Index 21.95 (54.43 kg, 157.48 cm) [facility] 16:43 Pain Scale: Adult [facility] MDM: 16:43 Patient medically screened. [facility] 18:02 Differential diagnosis: acute psychotic break, depression, Nonspecific abd pain, fam gastritis, viral gastroenteritis, gastroenteritis. Data reviewed: vital signs, nurses notes, lab test result(s), EKG. Consideration of Admission/Observation Escalation of care including admission/observation considered. I considered the following discharge prescriptions or medication management in the emergency department Medications were administered in the Emergency Department. See MAR. Test considered but Not performed: CT: NO CT ABD/PELVIS. Care significantly affected by the following chronic conditions: ANXIETY. 11/16 16:44 Order name: Acetaminophen; Complete Time: 17:58 [facility] 11/16 16:44 Order name: Basic Metabolic Panel; Complete Time: 17:58 [facility] 11/16 16:44 Order name: CBC with Diff; Complete Time: 17:58 [facility] 11/16 16:44 Order name: ETOH Level; Complete Time: 17:58 [facility] 11/16 16:44 Order name: Hepatic Function; Complete Time: 17:58 [facility] 11/16 16:44 Order name: PT-INR; Complete Time: 17:58 [facility] 11/16 16:44 Order name: Test, Urine; Complete Time: 17:58 [facility] 11/16 16:44 Order name: Ptt, Activated; Complete Time: 17:58 [facility] 11/16 16:44 Order name: Salicylate; Complete Time: 18:19 [facility] 11/16 16:44 Order name: Urine Drug Screen; Complete Time: 18:19 [facility] 11/16 16:44 Order name: EKG; Complete Time: 16:45 [facility] 11/16 16:44 Order name: EKG - Nurse/Tech; Complete Time: 17:29 [facility] 11/16 16:44 Order name: IV Saline Lock; Complete Time: 16:53 [facility] 11/16 16:44 Order name: Labs collected and sent; Complete Time: 17:29 [facility] 11/16 16:44 Order name: Suicide Screening ([place]); Complete Time: 16:53 [facility] 11/16 17:58 Order name: PO challenge: GATORADE; Complete Time: 18:51 fam EC:08 Rate is 69 beats/min. Rhythm is regular. QRS [place] is Normal. VT interval is normal. QRS fam interval is normal. QT interval is normal. No Q waves. T waves are Normal. No ST changes noted. Clinical impression: NSR w/ Non-specific ST/T Changes and No evidence of ischemia. Interpreted by me. Reviewed by me. Administered Medications: 16:52 Drug: NS 0.9% IV 1000 ml Route: IV; Rate: 1 bolus; Site: right antecubital; 3 18:00 Follow up: IV Status: Completed infusion; IV Intake: 1000ml [facility] 17:10 Drug: Ondansetron IVP 4 mg Route: IVP; Site: right antecubital; 3 18:00 Follow up: Response: No adverse reaction 3 18:10 Drug: NS 0.9% IV 1000 ml Route: IV; Rate: 1 bolus; Site: right antecubital; 3 19:30 Follow up: IV Status: Completed infusion; IV Intake: 1000ml [facility] 18:10 Drug: Ativan IVP 1 mg Route: IVP; Site: right antecubital; eh3 19:30 Follow up: Response: No adverse reaction eh3 18:10 Drug: Famotidine IVP 20 mg Route: IVP; Site: right antecubital; eh3 19:30 Follow up: Response: No adverse reaction eh3 18:25 Drug: Promethazine IM 25 mg Route: IM; Site: right ventrogluteal; eh3 19:30 Follow up: Response: No adverse reaction eh3 18:25 Drug: Ondansetron IVP 4 mg Route: IVP; Site: right antecubital; eh3 19:30 Follow up: Response: No adverse reaction eh3 18:30 Drug: Potassium PO Effervescent Tablet 25 mEq Route: PO; eh3 19:30 Follow up: Response: No adverse reaction eh3 19:10 Drug: Ativan IVP 0.5 mg Route: IVP; Site: right antecubital; eh3 19:40 Follow up: Response: No adverse reaction eh3 Disposition Summary: 11/16/22 18:58 Discharge Ordered Location: Home fam Problem: new fam Symptoms: have improved fam Condition: Stable fam Diagnosis - Adjustment disorder with anxiety fam - Anxiety disorder, unspecified fam - Vomiting fam - Dehydration fam - Hypokalemia fam Followup: fam - With: Private Physician - When: 2 - 3 days - Reason: Recheck today's complaints, Continuance of care, Re-evaluation by your physician Followup: fam - With: - When: 2 - 3 days - Reason: Recheck today's complaints, Re-evaluation by your physician Discharge Instructions: - Discharge Summary Sheet fam - Adjustment Disorder, Adult fam - Panic Attack fam - Potassium Content of Foods fam - Dehydration, Adult, [id number] fam - Hypokalemia fam - Vomiting, Adult fam - Supporting Someone With Anxiety fam - Managing Anxiety, Adult fam Forms: - Medication Reconciliation Form fam - Thank You Letter fam - Antibiotic Education fam - Prescription Opioid Use fam - Patient Portal Instructions fam Prescriptions: - ondansetron 4 mg Oral Tablet,disintegrating - take 1 tablet by ORAL route every 8 hours for 5 days; 20 tablet; Refills: 0, [facility] Product Selection Permitted - Xanax 0.5 mg Oral Tablet - take 1 tablet by ORAL route every 8 hours As needed; 20 tablet; Refills: 0, [facility] Product Selection Permitted Signatures: Dispatcher [employer] Michele Trevizo MD MD cha Hall, Erin, RN RN eh3
[2022-11-16 19:50] VITALS: TEMP 98.4
[2022-11-16 19:58] VITALS: BP 113/78; O2SAT 99
--- NOTE | 2022-11-17 17:35 | EKG ---
Test Date: 2022-11-16 Test Time: 17:13:52 Undercutter: SEDA MEASUREMENT RESULTS: Intervals: Rate: 69 ND: 142 QRSD: 78 QT: 438 QTc: 469 [place]: P: 72 ND: 142 QRS: 99 T: 55 INTERPRETIVE STATEMENTS: Normal sinus rhythm with sinus arrhythmia Rightward axis Borderline ECG No previous ECG available for comparison Electronically Signed On 11-17-22 17:31:49 CDT by Alex Timmons
== END 2022-11-16 19:44 | disposition home or self-care (01) ==
LOC: ER 16:37
DX: F43.22 Adjustment disorder with anxiety (principal); E86.0 Dehydration; E87.6 Hypokalemia; F41.9 Anxiety disorder, unspecified
CPT/HCPCS: 85025; 80048; 36415; 81025; 85610; 80076; 85730; 80307; 80143; 80179; 82077; J2550; J2405 ×2; J7030; 93005